=== PATIENT | female | born 1980 | race African-American/Black ===

== ENCOUNTER 2018-09-27 22:30 | Inpatient (IN) | payer MEDICAID ==
[~2018-09-27] VITALS: Ht 172.7 cm; Wt 136.1 kg
[2018-09-27] MEDS ORDERED: ONDANSETRON HCL 4MG/2ML INJ IV STA (23:58)
[2018-09-27] MEDS ORDERED: MORPHINE SULFATE 4 MG/ML CPJ (NOT FOR IM USE) IV STA (23:58)
[2018-09-28 01:00] LABS: BASOPHILS % 0.4 % (0.0-2.0); EOSINOPHILS % 0.2 % (0.0-5.0); HEMATOCRIT. 43.5 % (36.0-48.0); HEMOGLOBIN. 14.4 g/dL (12.0-16.0); LYMPHOCYTES % 23.8 % (20.0-50.0); MEAN CORPUSCULAR HEMOGLOBIN 29.1 pg (28.0-32.0); MEAN CORPUSCULAR VOLUME 88.1 fL (81.0-99.0); MEAN PLATELET VOLUME 8.1 fl (7.4-10.4); MONOCYTES % 7.1 % (2.0-8.0); NEUTROPHILS % 68.5 % (40.0-76.0); PLATELET 222 x1000/uL (130-400); RED BLOOD CELL COUNT 4.94 mill/uL (4.2-5.4); RED CELL DISTRIBUTION WIDTH 14.2 % (11.6-14.6)
[2018-09-28 01:04] LABS: HCG SCREEN NEGATIVE
[2018-09-28 01:06] LABS: INR 1.1; PARTIAL THROMBOPLASTIN TIME 25.7 sec (23.4-31.0); PROTHROMBIN TIME 10.9 sec (9.1-11.1)
[2018-09-28 01:12] LABS: CHLORIDE 110 mEq/L (98-107)
[2018-09-28] MEDS ORDERED: VANCOMYCIN 1 G PREMIX 200 ML IV ONE (01:45)
[2018-09-28] MEDS ORDERED: SODIUM CHLORIDE 0.9% 1000ML BAG (SEPSIS BOLUS) IV ONE (01:45)
[2018-09-28] MEDS ORDERED: PIPERACILLIN/TAZ 3.375G PREMIX 50 ML IV ONE (01:45)
[2018-09-28 05:20] LABS: CLARITY URINE CLOUDY (CLEAR); COLOR URINE YELLOW (YELLOW); KETONES URINE NEGATIVE (NEGATIVE); LEUKOCYTE ESTERASE URINE NEGATIVE (NEGATIVE); NITRITE URINE NEGATIVE (NEGATIVE); OCCULT BLOOD URINE 2+ (NEGATIVE); PROTEIN URINE TRACE (NEGATIVE); UROBILINOGEN URINE 0.2 E.U./dL (0.2-1.0)
[2018-09-28] MEDS ORDERED: MORPHINE SULFATE 4 MG/ML CPJ (NOT FOR IM USE) IV ONE (05:30)
[2018-09-28] MEDS ORDERED: CLONIDINE 0.1MG TABLET PO PRN (09:45)
[2018-09-28] MEDS ORDERED: DEXTROSE 50% WATER 50ML SYRINGE IV PRN (09:45)
[2018-09-28] MEDS ORDERED: ONDANSETRON HCL 4MG/2ML INJ IV PRN (09:45)
[2018-09-28] MEDS ORDERED: POTASSIUM CHLORIDE 20MEQ TABLET SR PO PRN (09:45)
[2018-09-28 10:02] LABS: *AMPHETAMINES SCREEN URINE NEGATIVE (NEGATIVE); *BARBITURATES SCREEN URINE NEGATIVE (NEGATIVE); *BENZODIAZEPINES SCREEN URINE NEGATIVE (NEGATIVE); *COCAINE SCREEN URINE NEGATIVE (NEGATIVE); CANNABINOID URINE SCREEN NEGATIVE (NEGATIVE); METHADONE URINE SCREEN NEGATIVE (NEGATIVE); PHENCYCLIDINE URINE SCREEN NEGATIVE (NEGATIVE)
[2018-09-28 10:06] LABS: OPIATES URINE SCREEN PRESUMTIVE POSITIVE (NEGATIVE)
[2018-09-28 12:00] VITALS: BP 159/65
[2018-09-28] MEDS: INSULIN LISPRO 100 UNITS/ML SUBCUT SCH ×3 (12:17→20:43)
[2018-09-28] MEDS: BLOOD SUGAR DIAGNOSTIC STRIP TEST SCH ×3 (13:00→20:43)
[2018-09-28] MEDS: KETOROLAC 30MG/ML VIAL IV PRN ×2 (13:25→20:42)
[2018-09-28] MEDS: RISPERIDONE 1MG TABLET PO SCH (14:34)
[2018-09-28] MEDS: ACETAMINOPHEN 325MG TABLET PO PRN (14:34)
[2018-09-28 16:00] VITALS: BP 159/90
[2018-09-28] MEDS ORDERED: HALOPERIDOL 2MG TABLET PO PRN (17:15)
[2018-09-28] MEDS: DILTIAZEM HCL 90MG CAPSULE SR 12HR PO SCH ×2 (17:19→20:41)
[2018-09-28] MEDS: RIVAROXABAN 20 MG TABLET PO SCH (17:20)
[2018-09-28 20:00] VITALS: BP 151/108
[2018-09-28] MEDS ORDERED: INFLUENZA VIRUS VACCINE(AFLURIA) 0.5ML SYR IM ONE (20:00)
[2018-09-28] MEDS: SODIUM CHLORIDE 0.9% 1,000 ML IV SCH (20:43)
[2018-09-29] VITALS: BP 163/94
[2018-09-29] MEDS: KETOROLAC 30MG/ML VIAL IV PRN ×2 (02:48→21:50)
[2018-09-29 04:00] VITALS: BP 126/61
[2018-09-29] MEDS: BLOOD SUGAR DIAGNOSTIC STRIP TEST SCH ×4 (06:42→21:51)
[2018-09-29] MEDS: INSULIN LISPRO 100 UNITS/ML SUBCUT SCH ×4 (06:43→21:00)
[2018-09-29 07:16] LABS: BASOPHILS % 0.2 % (0.0-2.0); EOSINOPHILS % 0.6 % (0.0-5.0); HEMATOCRIT. 37.1 % (36.0-48.0); HEMOGLOBIN. 12.4 g/dL (12.0-16.0); LYMPHOCYTES % 24.1 % (20.0-50.0); MEAN CORPUSCULAR HEMOGLOBIN 29.3 pg (28.0-32.0); MEAN CORPUSCULAR VOLUME 87.9 fL (81.0-99.0); MEAN PLATELET VOLUME 8.1 fl (7.4-10.4); NEUTROPHILS % 67.1 % (40.0-76.0); PLATELET 156 x1000/uL (130-400); RED BLOOD CELL COUNT 4.22 mill/uL (4.2-5.4); RED CELL DISTRIBUTION WIDTH 14.5 % (11.6-14.6)
[2018-09-29 08:00] VITALS: BP 158/93
[2018-09-29] MEDS ORDERED: INFLUENZA VIRUS VACCINE(AFLURIA) 0.5ML SYR IM ONE (09:00)
[2018-09-29] MEDS: RISPERIDONE 1MG TABLET PO SCH (09:01)
[2018-09-29] MEDS: DILTIAZEM HCL 90MG CAPSULE SR 12HR PO SCH ×2 (09:01→21:50)
[2018-09-29 12:00] VITALS: BP 136/64
[2018-09-29] MEDS: HYDRALAZINE HCL 10MG TABLET PO SCH ×2 (12:11→21:49)
[2018-09-29 14:13] LABS: CREATINE KINASE 47009 IU/L (26-192)
[2018-09-29 16:00] VITALS: BP 148/71
[2018-09-29] MEDS: RIVAROXABAN 20 MG TABLET PO SCH (17:32)
[2018-09-29] MEDS: ACETAMINOPHEN 325MG TABLET PO PRN (17:36)
[2018-09-29 20:00] VITALS: BP 154/90
[2018-09-29] MEDS: SODIUM CHLORIDE 0.9% 1,000 ML IV SCH (22:37)
[2018-09-30] VITALS: BP 97/74
[2018-09-30 04:00] VITALS: BP 125/61
[2018-09-30] MEDS: BLOOD SUGAR DIAGNOSTIC STRIP TEST SCH ×2 (06:22→12:44)
[2018-09-30] MEDS: INSULIN LISPRO 100 UNITS/ML SUBCUT SCH ×2 (06:22→12:50)
[2018-09-30 08:00] VITALS: BP 143/70
[2018-09-30] MEDS: DILTIAZEM HCL 90MG CAPSULE SR 12HR PO SCH (08:33)
[2018-09-30] MEDS: RISPERIDONE 1MG TABLET PO SCH (08:33)
[2018-09-30] MEDS: HYDRALAZINE HCL 10MG TABLET PO SCH (08:33)
[2018-09-30] MEDS: KETOROLAC 30MG/ML VIAL IV PRN (10:36)
[2018-09-30 12:00] VITALS: BP 127/65
[2018-09-30 13:22] LABS: CHLORIDE 110 mEq/L (98-107)
[2018-09-30 15:43] VITALS: BP 135/78
[2018-09-30 16:00] VITALS: BP 134/70
== END 2018-09-30 17:25 | disposition home or self-care (01) | DRG 384 ==
LOC: ER 22:55 → 5WST 09-28 05:18 → EDBEDREQ 09-28 05:43 → EDBEDREQTM 09-28 05:43 → EDBEDREQSVC 09-28 05:43 → ENRESERV 09-28 10:38
PROVIDERS: ADMIT Emergency Medicine; ATTEND Emergency Medicine
DX: S80.02XA Contusion of left knee, initial encounter (principal); N17.9 Acute kidney failure, unspecified; E66.01 Morbid (severe) obesity due to excess calories; F03.90 Unspecified dementia, unspecified severity, without behavioral disturbance, psychotic disturbance, mood disturbance, and anxiety; F20.9 Schizophrenia, unspecified; F44.4 Conversion disorder with motor symptom or deficit; S80.01XA Contusion of right knee, initial encounter; W18.39XA Other fall on same level, initial encounter; E11.9 Type 2 diabetes mellitus without complications; I10 Essential (primary) hypertension; I25.2 Old myocardial infarction; Z68.42 Body mass index [BMI] 45.0-49.9, adult; Z79.01 Long term (current) use of anticoagulants; Z79.899 Other long term (current) drug therapy; Z86.73 Personal history of transient ischemic attack (TIA), and cerebral infarction without residual deficits; Z91.19 Patient's noncompliance with other medical treatment and regimen; Y93.89 Activity, other specified; Y92.89 Other specified places as the place of occurrence of the external cause
CPT/HCPCS: 36415; 71045; 72131; 73700; 80048; 80305; 82550; 82962; 83036; 83605; 83880; 84145; 84484; 84703; 85379; 85651; 86140; 87804; 90686; 93970; 96365; 96375; 97162; 99285; J1815; J1885; J2270; J2405; J2543; J3370; J7030; J7042; A4315

== ENCOUNTER 2018-09-30 18:16 | Inpatient (IN) | payer MEDICAID ==
[~2018-09-30] VITALS: Ht 165.1 cm; Wt 136.1 kg
[2018-09-30 21:02] LABS: CLARITY URINE TURBID (CLEAR); COLOR URINE YELLOW (YELLOW); KETONES URINE NEGATIVE (NEGATIVE); LEUKOCYTE ESTERASE URINE 2+ (NEGATIVE); NITRITE URINE NEGATIVE (NEGATIVE); OCCULT BLOOD URINE 3+ (NEGATIVE); PROTEIN URINE TRACE (NEGATIVE); SPECIFIC GRAVITY URINE 1.017 (1.005-1.030)
[2018-09-30 21:55] LABS: BASOPHILS % 0.5 % (0.0-2.0); EOSINOPHILS % 0.6 % (0.0-5.0); HEMATOCRIT. 37.5 % (36.0-48.0); HEMOGLOBIN. 12.7 g/dL (12.0-16.0); LYMPHOCYTES % 16.4 % (20.0-50.0); MEAN CORPUSCULAR HEMOGLOBIN 29.8 pg (28.0-32.0); MEAN PLATELET VOLUME 8.2 fl (7.4-10.4); MONOCYTES % 6.8 % (2.0-8.0); NEUTROPHILS % 75.7 % (40.0-76.0); PLATELET 172 x1000/uL (130-400); RED BLOOD CELL COUNT 4.26 mill/uL (4.2-5.4); RED CELL DISTRIBUTION WIDTH 14.5 % (11.6-14.6)
[2018-09-30 22:00] LABS: CHLORIDE 109 mEq/L (98-107); INR 1.2; PROTHROMBIN TIME 11.7 sec (9.1-11.1)
[2018-09-30] MEDS ORDERED: CEFTRIAXONE 2 G PREMIX 50 ML IV ONE (23:30)
[2018-10-01] MEDS ORDERED: ACETAMINOPHEN 500MG TABLET ONE (00:42)
[2018-10-01 08:00] VITALS: BP 153/85
[2018-10-01 09:00] VITALS: BP 153/85
[2018-10-01] MEDS: ACETAMINOPHEN 650MG/20.3ML UDC PO PRN ×4 (09:15→23:09)
[2018-10-01 12:00] VITALS: BP 149/78
[2018-10-01 16:00] VITALS: BP 154/79
[2018-10-01] MEDS ORDERED: IPRATROPIUM/ALBUTEROL 0.5-3(2.5)MG/3ML NEB INH PRN (18:00)
[2018-10-01] MEDS ORDERED: ONDANSETRON HCL 4MG/2ML INJ IV PRN (18:00)
[2018-10-01 20:00] VITALS: BP 137/95
[2018-10-01] MEDS: AMLODIPINE 5MG TABLET PO SCH (20:33)
[2018-10-02] VITALS: BP 153/72
[2018-10-02 01:27] LABS: PHOSPHORUS 4.1 mg/dL (2.5-4.9)
[2018-10-02 01:31] LABS: CREATINE KINASE MB FRACTION 15.8 ng/mL (0.5-3.6)
[2018-10-02 02:34] LABS: HCG SCREEN NEGATIVE
[2018-10-02 04:00] VITALS: BP 138/78
[2018-10-02] MEDS: ACETAMINOPHEN 650MG/20.3ML UDC PO PRN ×2 (05:36→12:22)
[2018-10-02 06:21] LABS: BASOPHILS % 0.3 % (0.0-2.0); EOSINOPHILS % 1.2 % (0.0-5.0); HEMATOCRIT. 36.2 % (36.0-48.0); HEMOGLOBIN. 12.1 g/dL (12.0-16.0); LYMPHOCYTES % 14.9 % (20.0-50.0); MEAN PLATELET VOLUME 8.4 fl (7.4-10.4); NEUTROPHILS % 74.6 % (40.0-76.0); PLATELET 160 x1000/uL (130-400); RED BLOOD CELL COUNT 4.16 mill/uL (4.2-5.4)
[2018-10-02 06:44] LABS: CHLORIDE 108 mEq/L (98-107)
[2018-10-02 08:00] VITALS: BP 141/79
[2018-10-02] MEDS: AMLODIPINE 5MG TABLET PO SCH ×2 (08:56→21:42)
[2018-10-02 10:29] VITALS: BP 136/88
[2018-10-02 16:00] VITALS: BP 155/96
[2018-10-02] MEDS: HYDROCODONE/ACETAMINOPHEN 5/325MG TABLET PO PRN ×2 (17:42→23:59)
[2018-10-02 20:00] VITALS: BP 131/72
[2018-10-02] MEDS ORDERED: DEXTROSE 50% WATER 50ML SYRINGE IV PRN (22:45)
[2018-10-03] VITALS: BP 137/69
[2018-10-03 04:00] VITALS: BP 138/73
[2018-10-03] MEDS: HYDROCODONE/ACETAMINOPHEN 5/325MG TABLET PO PRN ×3 (05:18→19:58)
[2018-10-03] MEDS: BLOOD SUGAR DIAGNOSTIC STRIP TEST SCH ×4 (05:55→20:03)
[2018-10-03 07:19] LABS: BASOPHILS % 0.3 % (0.0-2.0); EOSINOPHILS % 2.1 % (0.0-5.0); HEMATOCRIT. 36.1 % (36.0-48.0); HEMOGLOBIN. 12.2 g/dL (12.0-16.0); MEAN CORPUSCULAR HEMOGLOBIN 29.3 pg (28.0-32.0); MEAN PLATELET VOLUME 8.8 fl (7.4-10.4); MONOCYTES % 13.2 % (2.0-8.0); NEUTROPHILS % 70.4 % (40.0-76.0); PLATELET 175 x1000/uL (130-400); RED BLOOD CELL COUNT 4.15 mill/uL (4.2-5.4); RED CELL DISTRIBUTION WIDTH 14.2 % (11.6-14.6)
[2018-10-03 07:47] LABS: CHLORIDE 106 mEq/L (98-107)
[2018-10-03] MEDS: INSULIN LISPRO 100 UNITS/ML SUBCUT SCH ×4 (08:06→20:03)
[2018-10-03] MEDS: AMLODIPINE 5MG TABLET PO SCH ×2 (08:10→19:56)
[2018-10-03 08:19] VITALS: BP 134/86
[2018-10-03 12:21] VITALS: BP 127/58
[2018-10-03] MEDS ORDERED: SODIUM CHLORIDE 0.45% 500 ML IV ONE (12:30)
[2018-10-03 14:04] LABS: CREATINE KINASE 7649 IU/L (26-192)
[2018-10-03] MEDS: CEFTRIAXONE 1 G PREMIX 50 ML IV SCH (14:09)
[2018-10-03 15:24] VITALS: BP 133/76
[2018-10-03 20:00] VITALS: BP 127/70
[2018-10-03] MEDS: ACETAMINOPHEN 650MG/20.3ML UDC PO PRN (23:48)
[2018-10-04] VITALS: BP 140/82
[2018-10-04 04:00] VITALS: BP 120/82
[2018-10-04] MEDS: BLOOD SUGAR DIAGNOSTIC STRIP TEST SCH ×4 (06:34→21:00)
[2018-10-04 07:06] LABS: HEMATOCRIT. 36.2 % (36.0-48.0); HEMOGLOBIN. 12.1 g/dL (12.0-16.0); MEAN CORPUSCULAR HEMOGLOBIN 29.1 pg (28.0-32.0); MEAN CORPUSCULAR VOLUME 86.7 fL (81.0-99.0); MEAN PLATELET VOLUME 8.8 fl (7.4-10.4); PLATELET 181 x1000/uL (130-400); RED BLOOD CELL COUNT 4.18 mill/uL (4.2-5.4); RED CELL DISTRIBUTION WIDTH 14.1 % (11.6-14.6)
[2018-10-04 07:13] LABS: CHLORIDE 104 mEq/L (98-107)
[2018-10-04 07:48] LABS: CREATINE KINASE 4658 IU/L (26-192)
[2018-10-04] MEDS: INSULIN LISPRO 100 UNITS/ML SUBCUT SCH ×4 (07:50→21:14)
[2018-10-04 08:00] VITALS: BP 134/82
[2018-10-04] MEDS: CEFTRIAXONE 1 G PREMIX 50 ML IV SCH (08:35)
[2018-10-04] MEDS: AMLODIPINE 5MG TABLET PO SCH ×2 (08:36→21:13)
[2018-10-04] MEDS: HYDROCODONE/ACETAMINOPHEN 5/325MG TABLET PO PRN ×3 (08:37→18:40)
[2018-10-04 12:00] VITALS: BP 138/80
[2018-10-04 12:13] LABS: PLATELET ESTIMATE NORMAL
[2018-10-04 16:00] VITALS: BP 130/80
[2018-10-04 20:00] VITALS: BP 113/59
[2018-10-04 20:07] LABS: *AMPHETAMINES SCREEN URINE NEGATIVE (NEGATIVE)
[2018-10-04 20:08] LABS: *BARBITURATES SCREEN URINE NEGATIVE (NEGATIVE); *BENZODIAZEPINES SCREEN URINE NEGATIVE (NEGATIVE); *COCAINE SCREEN URINE NEGATIVE (NEGATIVE); METHADONE URINE SCREEN NEGATIVE (NEGATIVE); PHENCYCLIDINE URINE SCREEN NEGATIVE (NEGATIVE)
[2018-10-04 20:09] LABS: CANNABINOID URINE SCREEN NEGATIVE (NEGATIVE)
[2018-10-04 20:13] LABS: OPIATES URINE SCREEN PRESUMTIVE POSITIVE (NEGATIVE)
[2018-10-04] MEDS: MORPHINE SULFATE 4 MG/ML CPJ (NOT FOR IM USE) IV PRN (20:59)
[2018-10-05] VITALS: BP 116/70
[2018-10-05 04:00] VITALS: BP 113/57
[2018-10-05] MEDS: MORPHINE SULFATE 4 MG/ML CPJ (NOT FOR IM USE) IV PRN ×2 (06:53→11:55)
[2018-10-05] MEDS: BLOOD SUGAR DIAGNOSTIC STRIP TEST SCH ×2 (07:20→11:45)
[2018-10-05] MEDS: CEFTRIAXONE 1 G PREMIX 50 ML IV SCH (09:13)
[2018-10-05] MEDS: AMLODIPINE 5MG TABLET PO SCH (09:13)
[2018-10-05] MEDS: INSULIN LISPRO 100 UNITS/ML SUBCUT SCH ×2 (09:14→12:02)
[2018-10-05 09:51] LABS: HEMATOCRIT. 37.1 % (36.0-48.0); HEMOGLOBIN. 12.4 g/dL (12.0-16.0); MEAN CORPUSCULAR HEMOGLOBIN 28.7 pg (28.0-32.0); MEAN PLATELET VOLUME 8.9 fl (7.4-10.4); PLATELET 203 x1000/uL (130-400); RED BLOOD CELL COUNT 4.32 mill/uL (4.2-5.4); RED CELL DISTRIBUTION WIDTH 13.9 % (11.6-14.6)
[2018-10-05 09:57] LABS: CHLORIDE 103 mEq/L (98-107)
[2018-10-05 12:00] VITALS: BP 136/79
[2018-10-05] MEDS ORDERED: AMLO5TAB88 PO (12:31)
[2018-10-05] MEDS ORDERED: ACET650S25 PO (12:31)
[2018-10-05 16:00] VITALS: BP 144/86
[2018-10-05 16:39] VITALS: BP 144/86
[2018-10-05 16:50] LABS: ATYPICAL LYMPHOCYTES 1; PLATELET ESTIMATE NORMAL
== END 2018-10-05 19:25 | DRG 720 ==
LOC: ER 18:16 → 6EST 23:19 → EDBEDREQ 23:23 → EDBEDREQTM 23:23 → ENRESERV 10-01 04:24 → 6EST 10-01 08:31 → 6WST 10-02 10:27
PROVIDERS: ADMIT Internal Medicine; ATTEND Internal Medicine
DX: A41.9 Sepsis, unspecified organism (principal); E43 Unspecified severe protein-calorie malnutrition; N17.9 Acute kidney failure, unspecified; M62.82 Rhabdomyolysis; E66.01 Morbid (severe) obesity due to excess calories; F20.9 Schizophrenia, unspecified; G83.9 Paralytic syndrome, unspecified; R16.0 Hepatomegaly, not elsewhere classified; K76.0 Fatty (change of) liver, not elsewhere classified; I10 Essential (primary) hypertension; M79.604 Pain in right leg; M25.562 Pain in left knee; F41.9 Anxiety disorder, unspecified; N39.0 Urinary tract infection, site not specified; E11.9 Type 2 diabetes mellitus without complications; W19.XXXA Unspecified fall, initial encounter; Y93.89 Activity, other specified; Y92.89 Other specified places as the place of occurrence of the external cause; Y99.8 Other external cause status; Z86.73 Personal history of transient ischemic attack (TIA), and cerebral infarction without residual deficits; Z68.42 Body mass index [BMI] 45.0-49.9, adult; Z91.14 Patient's other noncompliance with medication regimen
CPT/HCPCS: 36415; 73562; 73610; 76700; 80048; 80305; 82550; 82553; 82962; 82977; 83735; 84100; 84484; 84703; 85379; 93306; 96365; 97110; 97162; 97530; 99285; C1893; J0696; J1815; J2270; J7050; J7620

== ENCOUNTER 2018-10-19 17:18 | Inpatient (IN) | payer MEDICAID ==
[~2018-10-19] VITALS: Ht 165.1 cm; Wt 198.2 kg
[~2018-10-19 17:18] MED LIST: ACET650S25 PO; AMLO5TAB88 PO
[2018-10-19] MEDS ORDERED: SODIUM CHLORIDE 0.9% 500 ML IV ONE (19:08)
[2018-10-19] MEDS ORDERED: ONDANSETRON HCL 4MG/2ML INJ IV STA (19:08)
[2018-10-19] MEDS ORDERED: MORPHINE SULFATE 4 MG/ML CPJ (NOT FOR IM USE) IV STA (19:08)
[2018-10-19] MEDS ORDERED: ENOXAPARIN 100MG/ML SYR SUBCUT ONE (19:15)
[2018-10-19 19:57] LABS: BASOPHILS % 0.3 % (0.0-2.0); EOSINOPHILS % 0.7 % (0.0-5.0); HEMATOCRIT. 33.6 % (36.0-48.0); HEMOGLOBIN. 11.1 g/dL (12.0-16.0); LYMPHOCYTES % 27.7 % (20.0-50.0); MEAN PLATELET VOLUME 7.9 fl (7.4-10.4); MONOCYTES % 11.9 % (2.0-8.0); NEUTROPHILS % 59.4 % (40.0-76.0); PLATELET 234 x1000/uL (130-400); RED BLOOD CELL COUNT 3.96 mill/uL (4.2-5.4); RED CELL DISTRIBUTION WIDTH 13.9 % (11.6-14.6)
[2018-10-19 19:58] LABS: CHLORIDE 105 mEq/L (98-107)
[2018-10-19 20:11] LABS: HCG SCREEN NEGATIVE
[2018-10-19 20:15] LABS: CREATINE KINASE 431 IU/L (26-192)
[2018-10-19 20:16] LABS: D-DIMER 9.51 mg/L FEU (<0.50); INR 1.2; PARTIAL THROMBOPLASTIN TIME 29.5 sec (23.4-31.0)
[2018-10-20] MEDS ORDERED: KETOROLAC 30MG/ML VIAL IV ONE (01:30)
[2018-10-20] MEDS ORDERED: IOHEXOL-350 100 ML BOTTLE ONE (07:10)
[2018-10-20 09:00] VITALS: BP 119/56
[2018-10-20 10:00] VITALS: BP 130/69
[2018-10-20] MEDS ORDERED: ONDANSETRON HCL 4MG/2ML INJ IV PRN (10:30)
[2018-10-20] MEDS: ACETAMINOPHEN 325MG TABLET PO PRN (11:10)
[2018-10-20 12:00] VITALS: BP 117/66
[2018-10-20] MEDS ORDERED: HYDROCODONE/ACETAMINOPHEN 5/325MG TABLET PO PRN (15:00)
[2018-10-20 16:00] VITALS: BP 112/71
[2018-10-20] MEDS: HYDROMORPHONE HCL/PF 2MG/ML CPJ IV PRN ×2 (16:19→20:48)
[2018-10-20] MEDS ORDERED: CLONIDINE 0.1MG TABLET PO PRN (17:15)
[2018-10-20 20:00] VITALS: BP 131/53
[2018-10-20] MEDS: ENOXAPARIN 120MG/0.8ML SYR SUBCUT SCH (20:49)
[2018-10-21 00:28] VITALS: BP 124/76
[2018-10-21] MEDS: HYDROMORPHONE HCL/PF 2MG/ML CPJ IV PRN ×5 (02:29→20:40)
[2018-10-21 04:00] VITALS: BP 132/74
[2018-10-21 07:00] LABS: BASOPHILS % 0.3 % (0.0-2.0); EOSINOPHILS % 1.8 % (0.0-5.0); HEMATOCRIT. 32.6 % (36.0-48.0); HEMOGLOBIN. 10.8 g/dL (12.0-16.0); LYMPHOCYTES % 29.1 % (20.0-50.0); MEAN CORPUSCULAR HEMOGLOBIN 28.2 pg (28.0-32.0); MEAN CORPUSCULAR VOLUME 84.9 fL (81.0-99.0); MEAN PLATELET VOLUME 8.1 fl (7.4-10.4); MONOCYTES % 9.8 % (2.0-8.0); PLATELET 215 x1000/uL (130-400); RED BLOOD CELL COUNT 3.84 mill/uL (4.2-5.4)
[2018-10-21 07:06] LABS: CHLORIDE 104 mEq/L (98-107)
[2018-10-21 08:53] VITALS: BP 108/59
[2018-10-21] MEDS: ENOXAPARIN 120MG/0.8ML SYR SUBCUT SCH ×2 (08:54→20:40)
[2018-10-21 12:24] VITALS: BP 104/57
[2018-10-21] MEDS: ACETAMINOPHEN 325MG TABLET PO PRN (12:59)
[2018-10-21 17:09] VITALS: BP 105/48
[2018-10-21] MEDS: NYSTATIN POWDER 15GM TOP SCH (18:04)
[2018-10-21 20:00] VITALS: BP 112/55
[2018-10-22] VITALS: BP 121/64
[2018-10-22] MEDS: HYDROMORPHONE HCL/PF 2MG/ML CPJ IV PRN ×4 (01:36→20:34)
[2018-10-22 04:00] VITALS: BP 121/75
[2018-10-22 08:00] VITALS: BP 126/67
[2018-10-22 08:16] LABS: BASOPHILS % 0.3 % (0.0-2.0); EOSINOPHILS % 1.7 % (0.0-5.0); HEMATOCRIT. 31.8 % (36.0-48.0); HEMOGLOBIN. 10.5 g/dL (12.0-16.0); LYMPHOCYTES % 28.9 % (20.0-50.0); MEAN CORPUSCULAR HEMOGLOBIN 27.9 pg (28.0-32.0); MEAN CORPUSCULAR VOLUME 84.4 fL (81.0-99.0); MEAN PLATELET VOLUME 8.2 fl (7.4-10.4); MONOCYTES % 12.6 % (2.0-8.0); NEUTROPHILS % 56.5 % (40.0-76.0); PLATELET 221 x1000/uL (130-400); RED BLOOD CELL COUNT 3.76 mill/uL (4.2-5.4)
[2018-10-22] MEDS: ENOXAPARIN 120MG/0.8ML SYR SUBCUT SCH ×2 (08:17→20:34)
[2018-10-22] MEDS: NYSTATIN POWDER 15GM TOP SCH ×3 (08:18→18:47)
[2018-10-22 09:50] LABS: CHLORIDE 103 mEq/L (98-107)
[2018-10-22] MEDS: ACETAMINOPHEN 325MG TABLET PO PRN ×2 (11:43→17:55)
[2018-10-22 12:00] VITALS: BP 124/65
[2018-10-22 16:00] VITALS: BP 112/63
[2018-10-22 19:52] VITALS: BP 113/49
[2018-10-23] VITALS: BP 128/76
[2018-10-23] MEDS: HYDROMORPHONE HCL/PF 2MG/ML CPJ IV PRN ×3 (02:09→12:36)
[2018-10-23 04:00] VITALS: BP 154/70
[2018-10-23 08:00] VITALS: BP 115/52
[2018-10-23 08:12] LABS: BASOPHILS % 0.3 % (0.0-2.0); EOSINOPHILS % 1.7 % (0.0-5.0); HEMATOCRIT. 30.7 % (36.0-48.0); HEMOGLOBIN. 10.1 g/dL (12.0-16.0); LYMPHOCYTES % 21.4 % (20.0-50.0); MEAN CORPUSCULAR HEMOGLOBIN 27.9 pg (28.0-32.0); MEAN CORPUSCULAR VOLUME 84.8 fL (81.0-99.0); MEAN PLATELET VOLUME 8.1 fl (7.4-10.4); MONOCYTES % 13.1 % (2.0-8.0); NEUTROPHILS % 63.5 % (40.0-76.0); PLATELET 212 x1000/uL (130-400); RED BLOOD CELL COUNT 3.62 mill/uL (4.2-5.4); RED CELL DISTRIBUTION WIDTH 14.2 % (11.6-14.6)
[2018-10-23] MEDS: NYSTATIN POWDER 15GM TOP SCH ×2 (08:55→13:00)
[2018-10-23] MEDS: ENOXAPARIN 120MG/0.8ML SYR SUBCUT SCH (08:55)
[2018-10-23 08:58] LABS: CHLORIDE 102 mEq/L (98-107)
[2018-10-23 12:00] VITALS: BP 130/71
[2018-10-23 13:32] VITALS: BP 130/71
[2018-10-23] MEDS: ACETAMINOPHEN 325MG TABLET PO PRN (15:41)
[2018-10-23 16:00] VITALS: BP 114/66
== END 2018-10-23 17:25 | DRG 197 ==
LOC: ER 17:18 → 6WST 23:40 → EDBEDREQ 23:43 → EDBEDREQTM 23:43 → ENRESERV 10-20 07:15
PROVIDERS: ADMIT Internal Medicine; ATTEND Internal Medicine
DX: I82.432 Acute embolism and thrombosis of left popliteal vein (principal); E43 Unspecified severe protein-calorie malnutrition; L89.153 Pressure ulcer of sacral region, stage 3; L89.323 Pressure ulcer of left buttock, stage 3; L89.313 Pressure ulcer of right buttock, stage 3; I82.412 Acute embolism and thrombosis of left femoral vein; E66.01 Morbid (severe) obesity due to excess calories; F20.9 Schizophrenia, unspecified; I10 Essential (primary) hypertension; D64.9 Anemia, unspecified; Z68.45 Body mass index [BMI] 70 or greater, adult; Z79.1 Long term (current) use of non-steroidal anti-inflammatories (NSAID); Z86.73 Personal history of transient ischemic attack (TIA), and cerebral infarction without residual deficits; Z79.899 Other long term (current) drug therapy; Z79.01 Long term (current) use of anticoagulants; Z98.891 History of uterine scar from previous surgery
CPT/HCPCS: 36415; 71045; 71275; 73502; 78582; 80048; 82550; 83880; 84134; 84484; 84703; 85379; 93005; 93970; 97163; 97530; 99285; A9558; J1170; J1650; J1885; J2405; J7040; Q9967

== ENCOUNTER 2018-11-08 11:06 | Inpatient (IN) | payer MEDICAID ==
[~2018-11-08] VITALS: Ht 165.1 cm; Wt 125.3 kg
[2018-11-08 13:02] LABS: BASOPHILS % 0.4 % (0.0-2.0); HEMATOCRIT. 30.1 % (36.0-48.0); HEMOGLOBIN. 9.8 g/dL (12.0-16.0); LYMPHOCYTES % 11.5 % (20.0-50.0); MEAN CORPUSCULAR HEMOGLOBIN 26.8 pg (28.0-32.0); MONOCYTES % 9.7 % (2.0-8.0); NEUTROPHILS % 78.4 % (40.0-76.0); PLATELET 202 x1000/uL (130-400); RED BLOOD CELL COUNT 3.66 mill/uL (4.2-5.4); RED CELL DISTRIBUTION WIDTH 15.1 % (11.6-14.6)
[2018-11-08 13:10] LABS: CHLORIDE 102 mEq/L (98-107)
[2018-11-08 13:14] LABS: D-DIMER 3.98 mg/L FEU (<0.50); INR 1.3; PARTIAL THROMBOPLASTIN TIME 34.6 sec (23.4-31.0); PROTHROMBIN TIME 13.4 sec (9.1-11.1)
[2018-11-08] MEDS ORDERED: KETOROLAC 30MG/ML VIAL IV ONE (13:15)
[2018-11-08 15:56] LABS: CLARITY URINE CLEAR (CLEAR); COLOR URINE DARK YELLOW (YELLOW); KETONES URINE TRACE (NEGATIVE); LEUKOCYTE ESTERASE URINE TRACE (NEGATIVE); NITRITE URINE NEGATIVE (NEGATIVE); OCCULT BLOOD URINE NEGATIVE (NEGATIVE); PH URINE 5.5 (4.5-8.0); PROTEIN URINE 2+ (NEGATIVE); SPECIFIC GRAVITY URINE 1.034 (1.005-1.030)
[2018-11-08] MEDS ORDERED: IOHEXOL-350 100 ML BOTTLE ONE (17:57)
[2018-11-08] MEDS ORDERED: ONDANSETRON HCL 4MG/2ML INJ IV ONE (18:30)
[2018-11-08] MEDS ORDERED: HEPARIN 25,000 UNITS PREMIX 500 ML IV SCH ×2 (18:30→21:30)
[2018-11-08] MEDS ORDERED: HEPARIN 5000 UNITS/ML VIAL IV ONE (18:30)
[2018-11-08] MEDS ORDERED: FENTANYL CITRATE/PF 50MCG/ML 2ML VIAL IV ONE (18:30)
[2018-11-08] MEDS ORDERED: FENTANYL CITRATE/PF 50MCG/ML 2ML VIAL IV NR (18:45)
[2018-11-08] MEDS ORDERED: IPRATROPIUM/ALBUTEROL 0.5-3(2.5)MG/3ML NEB INH PRN (21:30)
[2018-11-08] MEDS ORDERED: ACETAMINOPHEN 325MG TABLET PO PRN (21:30)
[2018-11-08] MEDS ORDERED: MAGNESIUM/ALUMINUM HYDROXIDE/SIMETHICONE 30ML UDC PO PRN (21:30)
[2018-11-08] MEDS ORDERED: CLONIDINE 0.1MG TABLET PO PRN (21:30)
[2018-11-08] MEDS ORDERED: GUAIFENESIN 200MG/10ML SUGAR FREE UDC PO PRN (21:30)
[2018-11-08] MEDS ORDERED: ACETAMINOPHEN 650MG SUPP PR PRN (21:30)
[2018-11-08] MEDS ORDERED: ACETAMINOPHEN 650MG/20.3ML UDC GT PRN (21:30)
[2018-11-08] MEDS ORDERED: ONDANSETRON HCL 4MG/2ML INJ IV PRN (21:30)
[2018-11-08] MEDS ORDERED: DIPHENHYDRAMINE 50MG/ML VIAL IV PRN (21:30)
[2018-11-08] MEDS ORDERED: HYDROCODONE/ACETAMINOPHEN 5/325MG TABLET PO PRN (21:30)
[2018-11-08] MEDS ORDERED: NA PHOS,M-B/NA PHOS,DI-BA ENEMA 118ML PR PRN (21:30)
[2018-11-08] MEDS ORDERED: DOCUSATE SODIUM 100MG CAPSULE PO PRN (21:30)
[2018-11-09] VITALS (15 sets, daily range): BP systolic 101–161; BP diastolic 52–98
[2018-11-09] MEDS ORDERED: HEPARIN BOLUS PRN aPTT 37-44 IV ×2 (02:30→02:44)
[2018-11-09] MEDS ORDERED: HEPARIN BOLUS PRN aPTT <36 IV ×2 (02:30→02:44)
[2018-11-09] MEDS ORDERED: HEPARIN 25,000 UNITS PREMIX 500 ML IV SCH (02:30)
[2018-11-09] MEDS ORDERED: LOV40 SQ (02:37)
[2018-11-09] MEDS ORDERED: DOCU-138 PO (02:37)
[2018-11-09] MEDS ORDERED: CLON0.1T PO (02:37)
[2018-11-09] MEDS ORDERED: HYDR-4001 PO (02:37)
[2018-11-09] MEDS ORDERED: ACET325C5 PO (02:37)
[2018-11-09] MEDS ORDERED: HYDR2TAB4 PO (02:37)
[2018-11-09 02:46] LABS: BASOPHILS % 0.7 % (0.0-2.0); HEMATOCRIT. 28.6 % (36.0-48.0); HEMOGLOBIN. 9.3 g/dL (12.0-16.0); LYMPHOCYTES % 14.6 % (20.0-50.0); MEAN CORPUSCULAR HEMOGLOBIN 26.5 pg (28.0-32.0); MEAN CORPUSCULAR VOLUME 81.8 fL (81.0-99.0); MEAN PLATELET VOLUME 7.6 fl (7.4-10.4); MONOCYTES % 10.5 % (2.0-8.0); NEUTROPHILS % 74.2 % (40.0-76.0); PLATELET 164 x1000/uL (130-400); RED CELL DISTRIBUTION WIDTH 15.3 % (11.6-14.6)
[2018-11-09 02:52] LABS: CHLORIDE 105 mEq/L (98-107)
[2018-11-09 02:59] LABS: LDL CHOLESTEROL 29 mg/dL (5-100)
[2018-11-09 03:01] LABS: HDL CHOLESTEROL 21 mg/dL (40-59)
[2018-11-09 03:49] LABS: CLARITY URINE CLEAR (CLEAR); COLOR URINE DARK YELLOW (YELLOW); KETONES URINE 1+ (NEGATIVE); LEUKOCYTE ESTERASE URINE TRACE (NEGATIVE); NITRITE URINE NEGATIVE (NEGATIVE); OCCULT BLOOD URINE 3+ (NEGATIVE); PH URINE 5.5 (4.5-8.0); PROTEIN URINE 2+ (NEGATIVE); SPECIFIC GRAVITY URINE 1.071 (1.005-1.030)
[2018-11-09 04:00] LABS: *AMPHETAMINES SCREEN URINE NEGATIVE (NEGATIVE); *BARBITURATES SCREEN URINE NEGATIVE (NEGATIVE); *BENZODIAZEPINES SCREEN URINE NEGATIVE (NEGATIVE); *COCAINE SCREEN URINE NEGATIVE (NEGATIVE)
[2018-11-09 04:01] LABS: METHADONE URINE SCREEN NEGATIVE (NEGATIVE); PHENCYCLIDINE URINE SCREEN NEGATIVE (NEGATIVE)
[2018-11-09 04:10] LABS: CANNABINOID URINE SCREEN PRESUMTIVE POSITIVE (NEGATIVE); OPIATES URINE SCREEN PRESUMTIVE POSITIVE (NEGATIVE)
[2018-11-09] MEDS: SODIUM CHLORIDE 0.9% INJ 3ML FLUSH IVF SCH ×3 (06:00→20:39)
[2018-11-09] MEDS ORDERED: IODIXANOL 320MG/ML 100 ML BOTTLE IV ONE (09:59)
[2018-11-09] MEDS ORDERED: LIDOCAINE HCL 1% 20ML VIAL (Pyxis) INJ ONE (09:59)
[2018-11-09 10:16] LABS: UCG SCREEN NEGATIVE
[2018-11-09] MEDS ORDERED: MIDAZOLAM HCL 2 MG/2 ML VIAL ONE ×2 (10:22→12:30)
[2018-11-09] MEDS ORDERED: FENTANYL CITRATE/PF 50MCG/ML 2ML VIAL ONE ×2 (10:22→11:36)
[2018-11-09] MEDS: ENOXAPARIN 120MG/0.8ML SYR SUBCUT SCH ×2 (10:30→20:38)
[2018-11-09] MEDS ORDERED: IOHEXOL-300 100 ML BOTTLE ONE (11:13)
[2018-11-09] MEDS ORDERED: ATROPINE SULFATE 1MG/10ML SYR IV PRN (13:30)
[2018-11-09] MEDS ORDERED: DEXTROSE 50% WATER 50ML SYRINGE IV PRN (14:00)
[2018-11-09] MEDS ORDERED: PHENYLEPHRINE 100MCG/ML 10ML VIAL (CATH LAB) IV ONE (14:19)
[2018-11-09] MEDS ORDERED: HEPARIN SODIUM 1,000 UNIT/1ML VIAL IV ONE (14:19)
[2018-11-09] MEDS: MORPHINE SULFATE 10 MG/ML CPJ IV PRN (14:25)
[2018-11-09] MEDS: BLOOD SUGAR DIAGNOSTIC STRIP TEST SCH ×2 (16:37→20:37)
[2018-11-09] MEDS: INSULIN LISPRO 100 UNITS/ML SUBCUT SCH ×2 (17:20→21:00)
[2018-11-09] MEDS: ACETAMINOPHEN 325MG TABLET PO PRN (21:28)
[2018-11-10] VITALS (12 sets, daily range): BP systolic 99–141; BP diastolic 58–78
[2018-11-10] MEDS: MORPHINE SULFATE 10 MG/ML CPJ IV PRN ×3 (00:53→13:26)
[2018-11-10] MEDS: BLOOD SUGAR DIAGNOSTIC STRIP TEST SCH ×4 (06:02→20:35)
[2018-11-10] MEDS: SODIUM CHLORIDE 0.9% INJ 3ML FLUSH IVF SCH ×3 (06:24→20:35)
[2018-11-10] MEDS: INSULIN LISPRO 100 UNITS/ML SUBCUT SCH ×4 (06:25→20:35)
[2018-11-10 06:36] LABS: BASOPHILS % 0.2 % (0.0-2.0); EOSINOPHILS % 0.4 % (0.0-5.0); HEMATOCRIT. 26.4 % (36.0-48.0); HEMOGLOBIN. 8.7 g/dL (12.0-16.0); LYMPHOCYTES % 13.7 % (20.0-50.0); MEAN CORPUSCULAR VOLUME 81.8 fL (81.0-99.0); MEAN PLATELET VOLUME 8.4 fl (7.4-10.4); MONOCYTES % 11.1 % (2.0-8.0); NEUTROPHILS % 74.6 % (40.0-76.0); PLATELET 138 x1000/uL (130-400); RED BLOOD CELL COUNT 3.23 mill/uL (4.2-5.4); RED CELL DISTRIBUTION WIDTH 15.2 % (11.6-14.6)
[2018-11-10 06:56] LABS: CHLORIDE 107 mEq/L (98-107)
[2018-11-10] MEDS: ENOXAPARIN 120MG/0.8ML SYR SUBCUT SCH ×2 (09:33→20:01)
[2018-11-10] MEDS: QUETIAPINE FUMARATE 25MG TABLET PO SCH ×2 (13:24→20:01)
[2018-11-10] MEDS ORDERED: SODIUM CHLORIDE 0.9% 500 ML IV ONE (22:30)
[2018-11-11] VITALS (12 sets, daily range): BP systolic 106–140; BP diastolic 54–82
[2018-11-11] MEDS: SODIUM CHLORIDE 0.9% INJ 3ML FLUSH IVF SCH ×3 (06:00→22:00)
[2018-11-11] MEDS: BLOOD SUGAR DIAGNOSTIC STRIP TEST SCH ×4 (06:25→21:02)
[2018-11-11] MEDS: INSULIN LISPRO 100 UNITS/ML SUBCUT SCH ×4 (07:20→21:00)
[2018-11-11] MEDS: ENOXAPARIN 120MG/0.8ML SYR SUBCUT SCH ×2 (08:15→21:08)
[2018-11-11] MEDS: QUETIAPINE FUMARATE 25MG TABLET PO SCH ×2 (08:15→21:08)
[2018-11-11] MEDS: HYDROMORPHONE HCL/PF 2MG/ML CPJ IV PRN ×2 (08:17→15:10)
[2018-11-11] MEDS ORDERED: IOHEXOL-350 100 ML BOTTLE ONE (14:38)
[2018-11-11] MEDS ORDERED: ACETAMINOPHEN 325MG SUPP PR PRN (18:00)
[2018-11-11] MEDS ORDERED: ACETAMINOPHEN 650MG SUPP PR PRN (18:30)
[2018-11-12] VITALS (13 sets, daily range): BP systolic 99–142; BP diastolic 45–83
[2018-11-12] MEDS: HYDROMORPHONE HCL/PF 2MG/ML CPJ IV PRN ×3 (05:04→18:27)
[2018-11-12] MEDS: ACETAMINOPHEN 325MG TABLET PO PRN (05:19)
[2018-11-12] MEDS: SODIUM CHLORIDE 0.9% INJ 3ML FLUSH IVF SCH ×3 (05:39→21:30)
[2018-11-12] MEDS: BLOOD SUGAR DIAGNOSTIC STRIP TEST SCH ×5 (06:00→21:42)
[2018-11-12] MEDS: INSULIN LISPRO 100 UNITS/ML SUBCUT SCH ×5 (07:20→21:26)
[2018-11-12] MEDS: ENOXAPARIN 120MG/0.8ML SYR SUBCUT SCH ×2 (09:00→21:28)
[2018-11-12] MEDS: QUETIAPINE FUMARATE 25MG TABLET PO SCH ×2 (09:00→21:26)
[2018-11-12] MEDS ORDERED: IOHEXOL-300 100 ML BOTTLE ONE (13:01)
[2018-11-12] MEDS ORDERED: LIDOCAINE HCL 1% 20ML VIAL (Pyxis) INJ ONE (13:01)
[2018-11-12] MEDS: HYDROCODONE/ACETAMINOPHEN 5/325MG TABLET PO PRN ×2 (16:05→22:50)
[2018-11-12 16:19] LABS: INR 1.4; PARTIAL THROMBOPLASTIN TIME 36.2 sec (23.4-31.0); PROTHROMBIN TIME 13.8 sec (9.1-11.1)
[2018-11-13] VITALS (12 sets, daily range): BP systolic 92–131; BP diastolic 37–63
[2018-11-13] MEDS: SODIUM CHLORIDE 0.9% INJ 3ML FLUSH IVF SCH ×3 (06:00→21:25)
[2018-11-13] MEDS: BLOOD SUGAR DIAGNOSTIC STRIP TEST SCH ×4 (06:50→20:31)
[2018-11-13] MEDS: INSULIN LISPRO 100 UNITS/ML SUBCUT SCH ×3 (07:37→21:00)
[2018-11-13] MEDS: ENOXAPARIN 120MG/0.8ML SYR SUBCUT SCH ×2 (07:43→21:00)
[2018-11-13] MEDS: HYDROMORPHONE HCL/PF 2MG/ML CPJ IV PRN (08:05)
[2018-11-13] MEDS: QUETIAPINE FUMARATE 25MG TABLET PO SCH ×2 (09:00→21:25)
[2018-11-13] MEDS: HYDROCODONE/ACETAMINOPHEN 5/325MG TABLET PO PRN ×2 (12:36→21:25)
[2018-11-13 22:04] LABS: HEMATOCRIT 27.5 % (36.0-48.0)
[2018-11-14] VITALS (10 sets, daily range): BP systolic 99–149; BP diastolic 38–61
[2018-11-14 01:09] LABS: INR 1.4; PROTHROMBIN TIME 13.7 sec (9.1-11.1)
[2018-11-14] MEDS: SODIUM CHLORIDE 0.9% INJ 3ML FLUSH IVF SCH ×3 (05:59→22:14)
[2018-11-14] MEDS: HYDROMORPHONE HCL/PF 2MG/ML CPJ IV PRN ×2 (06:03→21:57)
[2018-11-14] MEDS: BLOOD SUGAR DIAGNOSTIC STRIP TEST SCH ×4 (06:51→21:55)
[2018-11-14] MEDS: INSULIN LISPRO 100 UNITS/ML SUBCUT SCH ×4 (07:57→21:00)
[2018-11-14] MEDS ORDERED: BACITRACIN 15GM TUBE TOP ONE (08:02)
[2018-11-14] MEDS ORDERED: VANCOMYCIN HCL 500 MG/VIAL ONE (08:02)
[2018-11-14] MEDS ORDERED: NORMAL SALINE 0.9% 10 ML SYR ONE (08:03)
[2018-11-14] MEDS ORDERED: BACITRACIN 50,000 UNITS/VIAL ONE (08:03)
[2018-11-14] MEDS ORDERED: FENTANYL CITRATE/PF 50MCG/ML 2ML VIAL ONE ×2 (08:10→08:53)
[2018-11-14] MEDS ORDERED: ONDANSETRON HCL 4MG/2ML INJ ONE (08:11)
[2018-11-14] MEDS ORDERED: CEFAZOLIN SODIUM 1000MG/VIAL ONE (08:11)
[2018-11-14] MEDS ORDERED: LIDOCAINE HCL 1% 20ML VIAL (Pyxis) INJ ONE (08:11)
[2018-11-14] MEDS ORDERED: METOCLOPRAMIDE HCL 10MG/2ML VIAL ONE (08:12)
[2018-11-14] MEDS ORDERED: KETOROLAC 30MG/ML VIAL ONE (08:36)
[2018-11-14] MEDS: QUETIAPINE FUMARATE 25MG TABLET PO SCH ×3 (08:56→21:50)
[2018-11-14] MEDS: ENOXAPARIN 120MG/0.8ML SYR SUBCUT SCH ×2 (08:56→21:52)
[2018-11-14] MEDS ORDERED: HYDROMORPHONE HCL/PF 2MG/ML (OR) ONE (10:25)
[2018-11-14] MEDS ORDERED: CEFAZOLIN 2,000 MG in DEXT 5% WATER 100 ML IV SCH (11:00)
[2018-11-14] MEDS ORDERED: ONDANSETRON HCL 4MG/2ML INJ IV PRN (11:15)
[2018-11-14] MEDS ORDERED: MEPERIDINE HCL/PF 25MG/ML CPJ IV PRN ×2 (11:15)
[2018-11-14] MEDS: CEFAZOLIN 2,000 MG in DEXT 5% WATER 100 ML IV SCH ×2 (15:46→22:18)
[2018-11-15] VITALS (7 sets, daily range): BP systolic 90–126; BP diastolic 59–88
[2018-11-15] MEDS: HYDROCODONE/ACETAMINOPHEN 5/325MG TABLET PO PRN (03:05)
[2018-11-15] MEDS: SODIUM CHLORIDE 0.9% INJ 3ML FLUSH IVF SCH ×3 (05:23→21:28)
[2018-11-15] MEDS: CEFAZOLIN 2,000 MG in DEXT 5% WATER 100 ML IV SCH ×3 (05:23→21:27)
[2018-11-15 06:38] LABS: BASOPHILS % 0.5 % (0.0-2.0); EOSINOPHILS % 1.3 % (0.0-5.0); LYMPHOCYTES % 10.6 % (20.0-50.0); MEAN CORPUSCULAR HEMOGLOBIN 27.8 pg (28.0-32.0); MEAN CORPUSCULAR VOLUME 83.4 fL (81.0-99.0); MEAN PLATELET VOLUME 8.7 fl (7.4-10.4); MONOCYTES % 8.9 % (2.0-8.0); NEUTROPHILS % 78.7 % (40.0-76.0); PLATELET 198 x1000/uL (130-400); RED BLOOD CELL COUNT 3.24 mill/uL (4.2-5.4); RED CELL DISTRIBUTION WIDTH 16.1 % (11.6-14.6)
[2018-11-15] MEDS: BLOOD SUGAR DIAGNOSTIC STRIP TEST SCH ×4 (07:40→21:27)
[2018-11-15] MEDS: INSULIN LISPRO 100 UNITS/ML SUBCUT SCH ×4 (07:59→21:00)
[2018-11-15] MEDS: QUETIAPINE FUMARATE 25MG TABLET PO SCH ×2 (08:48→21:27)
[2018-11-15] MEDS: ENOXAPARIN 120MG/0.8ML SYR SUBCUT SCH (08:48)
[2018-11-15] MEDS: HYDROMORPHONE HCL/PF 2MG/ML CPJ IV PRN ×2 (08:57→18:33)
[2018-11-15] MEDS: RIVAROXABAN 15 MG TABLET PO SCH (18:32)
[2018-11-15] MEDS: ACETAMINOPHEN 325MG TABLET PO PRN (21:27)
[2018-11-16] VITALS (7 sets, daily range): BP systolic 95–130; BP diastolic 42–70
[2018-11-16] MEDS: BLOOD SUGAR DIAGNOSTIC STRIP TEST SCH ×4 (06:02→20:29)
[2018-11-16] MEDS: CEFAZOLIN 2,000 MG in DEXT 5% WATER 100 ML IV SCH (06:05)
[2018-11-16] MEDS: SODIUM CHLORIDE 0.9% INJ 3ML FLUSH IVF SCH ×3 (06:05→21:16)
[2018-11-16] MEDS: RIVAROXABAN 15 MG TABLET PO SCH ×2 (08:28→16:05)
[2018-11-16] MEDS: QUETIAPINE FUMARATE 25MG TABLET PO SCH ×2 (08:28→21:14)
[2018-11-16] MEDS: INSULIN LISPRO 100 UNITS/ML SUBCUT SCH ×4 (08:29→21:15)
[2018-11-16] MEDS ORDERED: ONDANSETRON HCL 4MG/2ML INJ IV PRN (13:45)
[2018-11-16] MEDS: HYDROMORPHONE HCL/PF 2MG/ML CPJ IV PRN (16:04)
[2018-11-16] MEDS ORDERED: HYDROCODONE/ACETAMINOPHEN 5/325MG TABLET PO PRN (19:45)
[2018-11-17 04:00] VITALS: BP 116/59
[2018-11-17] MEDS: SODIUM CHLORIDE 0.9% INJ 3ML FLUSH IVF SCH (05:28)
[2018-11-17] MEDS: BLOOD SUGAR DIAGNOSTIC STRIP TEST SCH ×3 (05:35→17:40)
[2018-11-17] MEDS: INSULIN LISPRO 100 UNITS/ML SUBCUT SCH ×3 (08:10→18:10)
[2018-11-17] MEDS: RIVAROXABAN 15 MG TABLET PO SCH ×2 (09:07→20:59)
[2018-11-17] MEDS: QUETIAPINE FUMARATE 25MG TABLET PO SCH ×2 (09:07→20:59)
[2018-11-17 12:00] VITALS: BP 106/39
[2018-11-17] MEDS: ACETAMINOPHEN 325MG TABLET PO PRN ×2 (15:51→21:00)
[2018-11-17 16:00] VITALS: BP 145/90
[2018-11-17] MEDS ORDERED: XAR15 PO (16:47)
[2018-11-17] MEDS ORDERED: QUET25TA PO (16:47)
[2018-11-17 19:36] VITALS: BP 145/90
== END 2018-11-17 22:15 | DRG 181 ==
LOC: ER 11:30 → UNDOADMIN 12:45 → 6WST 12:45 → EDBEDREQ 13:00 → EDBEDREQTM 13:00 → ENRESERV 13:43 → 6WST 18:02 → 3WST 21:03 → ENRESERV 22:22 → EDBEDREQDT 11-09 01:08 → EDBEDREQSVC 11-09 01:08 → EDBEDREQTM 11-09 01:08 → 3WST 11-09 01:53 → 7WST 11-12 12:18
PROVIDERS: ADMIT Family Medicine; ATTEND Family Medicine
PROC: 04HK3DZ Insertion of Intraluminal Device into Right Femoral Artery, Percutaneous Approach (ICD-10-PCS; principal; 2018-11-09)
PROC: 047J3DZ Dilation of Left External Iliac Artery with Intraluminal Device, Percutaneous Approach (ICD-10-PCS; 2018-11-09)
PROC: 0Y6D0Z1 Detachment at Left Upper Leg, High, Open Approach (ICD-10-PCS; 2018-11-14)
PROC: 047D3DZ Dilation of Left Common Iliac Artery with Intraluminal Device, Percutaneous Approach (ICD-10-PCS; 2018-11-14)
PROC: 30233Q1 Transfusion of Nonautologous White Cells into Peripheral Vein, Percutaneous Approach (ICD-10-PCS; 2018-11-14)
PROC: 02H633Z Insertion of Infusion Device into Right Atrium, Percutaneous Approach (ICD-10-PCS; 2018-11-14)
PROC: B54MZZA Ultrasonography of Right Upper Extremity Veins, Guidance (ICD-10-PCS; 2018-11-14)
PROC: 06H03DZ Insertion of Intraluminal Device into Inferior Vena Cava, Percutaneous Approach (ICD-10-PCS; 2018-11-14)
PROC: B5191ZZ Fluoroscopy of Inferior Vena Cava using Low Osmolar Contrast (ICD-10-PCS; 2018-11-14)
DX: I74.5 Embolism and thrombosis of iliac artery (principal); E43 Unspecified severe protein-calorie malnutrition; L89.159 Pressure ulcer of sacral region, unspecified stage; L89.153 Pressure ulcer of sacral region, stage 3; I96 Gangrene, not elsewhere classified; L89.323 Pressure ulcer of left buttock, stage 3; E11.21 Type 2 diabetes mellitus with diabetic nephropathy; L89.313 Pressure ulcer of right buttock, stage 3; I82.412 Acute embolism and thrombosis of left femoral vein; F20.9 Schizophrenia, unspecified; E11.65 Type 2 diabetes mellitus with hyperglycemia; I10 Essential (primary) hypertension; D64.9 Anemia, unspecified; E66.01 Morbid (severe) obesity due to excess calories; E11.42 Type 2 diabetes mellitus with diabetic polyneuropathy; I82.429 Acute embolism and thrombosis of unspecified iliac vein; F12.90 Cannabis use, unspecified, uncomplicated; Z74.01 Bed confinement status; Z86.73 Personal history of transient ischemic attack (TIA), and cerebral infarction without residual deficits; Z89.512 Acquired absence of left leg below knee; Z89.612 Acquired absence of left leg above knee; Z68.42 Body mass index [BMI] 45.0-49.9, adult; I77.1 Stricture of artery; E11.52 Type 2 diabetes mellitus with diabetic peripheral angiopathy with gangrene; S80.212A Abrasion, left knee, initial encounter; S80.211A Abrasion, right knee, initial encounter; X58.XXXA Exposure to other specified factors, initial encounter; Y93.89 Activity, other specified; Y92.89 Other specified places as the place of occurrence of the external cause; Y99.8 Other external cause status; Z79.84 Long term (current) use of oral hypoglycemic drugs
CPT/HCPCS: 36415; 36556; 36569; 37191; 37221; 71045; 72191; 73706; 75635; 75710; 76937; 80048; 80061; 80305; 81025; 82962; 84134; 85014; 85018; 85049; 85347; 85379; 85384; 86850; 86900; 86920; 88307; 88311; 93005; 93971; 96365; 96375; 97162; 99285; A6261; C1725; C1726; C1758; C1760; C1769; C1880; C1887; C1893; C1894; J0690; J1170; J1644; J1650; J1815; J1885; J2250; J2270; J2370; J2405; J2765; J3010; J3370; J3490; J7040; J7042; J7050; J7060; L3670; P9016; Q9967

== ENCOUNTER 2018-12-09 12:16 | Inpatient (IN) | payer MEDICAID ==
[~2018-12-09] VITALS: Ht 165.1 cm; Wt 110.2 kg
[~2018-12-09 12:16] MED LIST changes: +ACET325C5 PO; +CLON0.1T PO; +DOCU-138 PO; +HYDR-4001 PO; +QUET25TA PO; +XAR15 PO
[2018-12-09] MEDS ORDERED: SODIUM CHLORIDE 0.9% 1000ML BAG (SEPSIS BOLUS) IV ONE ×2 (13:45→14:45)
[2018-12-09 13:52] LABS: BASOPHILS % 0.7 % (0.0-2.0); EOSINOPHILS % 4.3 % (0.0-5.0); HEMATOCRIT. 29.3 % (36.0-48.0); HEMOGLOBIN. 9.4 g/dL (12.0-16.0); LYMPHOCYTES % 41.7 % (20.0-50.0); MEAN CORPUSCULAR HEMOGLOBIN 26.4 pg (28.0-32.0); MEAN CORPUSCULAR VOLUME 82.9 fL (81.0-99.0); MEAN PLATELET VOLUME 8.6 fl (7.4-10.4); MONOCYTES % 10.3 % (2.0-8.0); PLATELET 253 x1000/uL (130-400); RED BLOOD CELL COUNT 3.54 mill/uL (4.2-5.4); RED CELL DISTRIBUTION WIDTH 20.4 % (11.6-14.6)
[2018-12-09 14:00] LABS: CHLORIDE 104 mEq/L (98-107); INR 1.6; PROTHROMBIN TIME 15.7 sec (9.1-11.1)
[2018-12-09] MEDS ORDERED: CEFEPIME 1,000 MG in DEXTROSE 5% WATER 50 ML IV STA (15:27)
[2018-12-09] MEDS ORDERED: VANCOMYCIN 1 G PREMIX 200 ML IV STA (15:27)
[2018-12-09 15:41] LABS: CLARITY URINE CLEAR (CLEAR); COLOR URINE YELLOW (YELLOW); KETONES URINE NEGATIVE (NEGATIVE); LEUKOCYTE ESTERASE URINE NEGATIVE (NEGATIVE); NITRITE URINE NEGATIVE (NEGATIVE); OCCULT BLOOD URINE NEGATIVE (NEGATIVE); PROTEIN URINE NEGATIVE (NEGATIVE); SPECIFIC GRAVITY URINE 1.017 (1.005-1.030)
[2018-12-09] MEDS ORDERED: IPRATROPIUM/ALBUTEROL 0.5-3(2.5)MG/3ML NEB INH PRN (17:30)
[2018-12-09] MEDS ORDERED: HYDROMORPHONE HCL/PF 2MG/ML CPJ IV PRN (18:15)
[2018-12-09] MEDS: ONDANSETRON HCL 4MG/2ML INJ IV PRN (19:11)
[2018-12-09 22:35] VITALS: BP 147/59
[2018-12-09] MEDS: HYDROMORPHONE HCL/PF 2MG/ML CPJ IV PRN (23:05)
[2018-12-09 23:16] VITALS: BP 147/59
[2018-12-10] MEDS ORDERED: DEXTROSE 50% WATER 50ML SYRINGE IV PRN (00:30)
[2018-12-10 04:00] VITALS: BP 112/52
[2018-12-10] MEDS: HYDROMORPHONE HCL/PF 2MG/ML CPJ IV PRN ×4 (04:19→19:09)
[2018-12-10] MEDS: BLOOD SUGAR DIAGNOSTIC STRIP TEST SCH ×4 (06:31→21:00)
[2018-12-10] MEDS: INSULIN LISPRO 100 UNITS/ML SUBCUT SCH ×4 (06:31→21:00)
[2018-12-10 07:07] LABS: BASOPHILS % 0.3 % (0.0-2.0); EOSINOPHILS % 4.4 % (0.0-5.0); HEMATOCRIT. 29.2 % (36.0-48.0); HEMOGLOBIN. 9.3 g/dL (12.0-16.0); LYMPHOCYTES % 49.7 % (20.0-50.0); MEAN CORPUSCULAR HEMOGLOBIN 26.7 pg (28.0-32.0); MEAN CORPUSCULAR VOLUME 83.7 fL (81.0-99.0); MEAN PLATELET VOLUME 8.6 fl (7.4-10.4); MONOCYTES % 12.2 % (2.0-8.0); NEUTROPHILS % 33.4 % (40.0-76.0); PLATELET 194 x1000/uL (130-400); RED BLOOD CELL COUNT 3.49 mill/uL (4.2-5.4); RED CELL DISTRIBUTION WIDTH 20.4 % (11.6-14.6)
[2018-12-10 08:00] VITALS: BP 111/55
[2018-12-10 08:37] LABS: CHLORIDE 102 mEq/L (98-107)
[2018-12-10 09:42] LABS: LDL CHOLESTEROL 61 mg/dL (5-100)
[2018-12-10 09:50] LABS: HDL CHOLESTEROL 23 mg/dL (40-59)
[2018-12-10 12:00] VITALS: BP 106/50
[2018-12-10 16:00] VITALS: BP 107/64
[2018-12-10] MEDS ORDERED: HYDROCODONE/ACETAMINOPHEN 10/325MG TABLET PO PRN (19:00)
[2018-12-10] MEDS ORDERED: HYDROCODONE/ACETAMINOPHEN 5/325MG TABLET PO PRN (19:00)
[2018-12-10 20:00] VITALS: BP 108/52
[2018-12-10] MEDS: AMLODIPINE 5MG TABLET PO SCH (21:00)
[2018-12-10] MEDS: HYDROCORTISONE 1% RECTAL CREAM 30GM PR SCH (21:53)
[2018-12-10] MEDS: QUETIAPINE FUMARATE 25MG TABLET PO SCH (21:53)
[2018-12-11] VITALS: BP 115/59
[2018-12-11 04:00] VITALS: BP 135/62
[2018-12-11] MEDS: BLOOD SUGAR DIAGNOSTIC STRIP TEST SCH ×4 (06:04→20:43)
[2018-12-11] MEDS: INSULIN LISPRO 100 UNITS/ML SUBCUT SCH ×4 (06:04→20:43)
[2018-12-11 08:00] VITALS: BP 137/76
[2018-12-11] MEDS ORDERED: MULTIVITAMINS,THER W-MINERALS TABLET PO SCH (09:00)
[2018-12-11] MEDS: HYDROCORTISONE 1% RECTAL CREAM 30GM PR SCH ×2 (09:00→20:45)
[2018-12-11] MEDS ORDERED: ASPIRIN 325MG EC TABLET PO SCH (09:00)
[2018-12-11] MEDS: SENNOSIDES/DOCUSATE SOD 8.6/50MG TABLET PO SCH ×2 (10:00→17:00)
[2018-12-11] MEDS: AMLODIPINE 5MG TABLET PO SCH ×2 (10:00→20:44)
[2018-12-11] MEDS: QUETIAPINE FUMARATE 25MG TABLET PO SCH ×2 (10:00→20:44)
[2018-12-11 12:00] VITALS: BP 144/70
[2018-12-11] MEDS: HYDROMORPHONE HCL/PF 2MG/ML CPJ IV PRN ×2 (13:07→18:31)
[2018-12-11 16:00] VITALS: BP 110/59
[2018-12-11 19:46] LABS: INR 1.3; PROTHROMBIN TIME 13.4 sec (9.1-11.1)
[2018-12-11 20:00] VITALS: BP 117/66
[2018-12-12] VITALS: BP 106/58
[2018-12-12 04:00] VITALS: BP 122/75
[2018-12-12] MEDS: BLOOD SUGAR DIAGNOSTIC STRIP TEST SCH ×4 (06:04→21:00)
[2018-12-12] MEDS: INSULIN LISPRO 100 UNITS/ML SUBCUT SCH ×4 (06:05→21:00)
[2018-12-12 08:00] VITALS: BP 127/70
[2018-12-12 08:31] LABS: BASOPHILS % 0.2 % (0.0-2.0); EOSINOPHILS % 1.7 % (0.0-5.0); HEMATOCRIT. 26.5 % (36.0-48.0); HEMOGLOBIN. 8.2 g/dL (12.0-16.0); LYMPHOCYTES % 59.2 % (20.0-50.0); MEAN CORPUSCULAR HEMOGLOBIN 26.8 pg (28.0-32.0); MEAN CORPUSCULAR VOLUME 86.4 fL (81.0-99.0); MEAN PLATELET VOLUME 8.2 fl (7.4-10.4); MONOCYTES % 11.2 % (2.0-8.0); NEUTROPHILS % 27.7 % (40.0-76.0); PLATELET 288 x1000/uL (130-400); RED BLOOD CELL COUNT 3.07 mill/uL (4.2-5.4); RED CELL DISTRIBUTION WIDTH 20.9 % (11.6-14.6)
[2018-12-12 08:32] LABS: INR 1.3; PROTHROMBIN TIME 13.3 sec (9.1-11.1)
[2018-12-12] MEDS: AMLODIPINE 5MG TABLET PO SCH ×2 (09:00→20:59)
[2018-12-12] MEDS: SENNOSIDES/DOCUSATE SOD 8.6/50MG TABLET PO SCH ×2 (09:00→17:47)
[2018-12-12] MEDS: QUETIAPINE FUMARATE 25MG TABLET PO SCH ×2 (09:00→20:59)
[2018-12-12 09:29] LABS: CHLORIDE 105 mEq/L (98-107)
[2018-12-12 09:39] LABS: FOLIC ACID (FOLATE) SERUM 16.1 ng/mL (>5.38); TOTAL IRON BINDING CAPACITY 243 ug/dL (250-450)
[2018-12-12] MEDS: HYDROCORTISONE 1% RECTAL CREAM 30GM PR SCH ×2 (10:35→21:00)
[2018-12-12] MEDS ORDERED: BACITRACIN 15GM TUBE TOP ONE (10:51)
[2018-12-12] MEDS ORDERED: NORMAL SALINE 0.9% 10 ML SYR ONE (10:51)
[2018-12-12] MEDS ORDERED: GENTAMICIN SULF 40MG/ML 2ML VIAL ONE (10:51)
[2018-12-12] MEDS ORDERED: BUPIVACAINE HCL 0.5% (5MG/ML) 50ML ONE (10:51)
[2018-12-12] MEDS ORDERED: BACITRACIN 50,000 UNITS/VIAL ONE (10:51)
[2018-12-12] MEDS ORDERED: VANCOMYCIN HCL 500 MG/VIAL ONE (12:25)
[2018-12-12] MEDS ORDERED: FENTANYL CITRATE/PF 50MCG/ML 2ML VIAL ONE ×3 (12:39→12:58)
[2018-12-12] MEDS ORDERED: MIDAZOLAM HCL 2 MG/2 ML VIAL ONE (12:40)
[2018-12-12] MEDS ORDERED: PROPOFOL 200MG/20ML VIAL IV ONE (12:40)
[2018-12-12] MEDS ORDERED: PIPERACILLIN SODIUM/TAZOBACTAM 4.5 G in DEXT 5% WATER 100 ML IV SCH ×2 (13:30→17:00)
[2018-12-12] MEDS ORDERED: VANCOMYCIN 1 G PREMIX 200 ML IV SCH ×2 (13:30→23:00)
[2018-12-12] MEDS ORDERED: HYDROMORPHONE HCL/PF 2MG/ML CPJ IV PRN ×2 (13:45)
[2018-12-12] MEDS ORDERED: ONDANSETRON HCL 4MG/2ML INJ IV PRN (13:45)
[2018-12-12 15:02] VITALS: BP 120/48
[2018-12-12] MEDS: HYDROMORPHONE HCL/PF 2MG/ML CPJ IV PRN (18:42)
[2018-12-12 20:00] VITALS: BP 114/44
[2018-12-12] MEDS: PIPERACILLIN SODIUM/TAZOBACTAM 4.5 G in DEXT 5% WATER 100 ML IV SCH (23:10)
[2018-12-13] VITALS: BP 111/41
[2018-12-13 04:00] VITALS: BP 110/60
[2018-12-13] MEDS: PIPERACILLIN SODIUM/TAZOBACTAM 4.5 G in DEXT 5% WATER 100 ML IV SCH ×2 (05:05→11:57)
[2018-12-13] MEDS: HYDROMORPHONE HCL/PF 2MG/ML CPJ IV PRN ×4 (05:38→21:15)
[2018-12-13] MEDS: INSULIN LISPRO 100 UNITS/ML SUBCUT SCH ×4 (06:16→21:00)
[2018-12-13] MEDS: BLOOD SUGAR DIAGNOSTIC STRIP TEST SCH ×4 (06:16→21:02)
[2018-12-13 07:52] LABS: HEMATOCRIT. 30.4 % (36.0-48.0); HEMOGLOBIN. 9.6 g/dL (12.0-16.0); MEAN CORPUSCULAR HEMOGLOBIN 26.7 pg (28.0-32.0); MEAN CORPUSCULAR VOLUME 84.7 fL (81.0-99.0); MEAN PLATELET VOLUME 7.7 fl (7.4-10.4); PLATELET 262 x1000/uL (130-400); RED BLOOD CELL COUNT 3.58 mill/uL (4.2-5.4); RED CELL DISTRIBUTION WIDTH 21.2 % (11.6-14.6)
[2018-12-13 08:00] VITALS: BP 110/50
[2018-12-13 08:13] LABS: CHLORIDE 105 mEq/L (98-107)
[2018-12-13] MEDS: AMLODIPINE 5MG TABLET PO SCH ×2 (08:53→20:48)
[2018-12-13] MEDS: SENNOSIDES/DOCUSATE SOD 8.6/50MG TABLET PO SCH ×2 (08:54→16:50)
[2018-12-13] MEDS: QUETIAPINE FUMARATE 25MG TABLET PO SCH ×2 (08:54→20:48)
[2018-12-13] MEDS: HYDROCORTISONE 1% RECTAL CREAM 30GM PR SCH ×2 (08:55→21:15)
[2018-12-13 11:04] LABS: NUCLEATED RED BLOOD CELLS 1 /100 WBC; PLATELET ESTIMATE NORMAL
[2018-12-13 12:00] VITALS: BP 105/54
[2018-12-13 16:00] VITALS: BP 122/71
[2018-12-13] MEDS: PIPERACILLIN/TAZ 3.375G PREMIX 50 ML IV SCH ×2 (17:59→23:16)
[2018-12-13] MEDS: VANCOMYCIN 1250MG in DEXTROSE 5% WATER 250ML IV SCH (18:38)
[2018-12-13 20:00] VITALS: BP 119/70
[2018-12-14] VITALS: BP 124/69
[2018-12-14 04:00] VITALS: BP 128/71
[2018-12-14] MEDS: PIPERACILLIN/TAZ 3.375G PREMIX 50 ML IV SCH ×3 (06:39→18:55)
[2018-12-14] MEDS: HYDROMORPHONE HCL/PF 2MG/ML CPJ IV PRN ×3 (06:39→22:13)
[2018-12-14] MEDS: BLOOD SUGAR DIAGNOSTIC STRIP TEST SCH ×4 (06:53→21:08)
[2018-12-14] MEDS: INSULIN LISPRO 100 UNITS/ML SUBCUT SCH ×4 (06:56→21:00)
[2018-12-14 08:00] VITALS: BP 110/49
[2018-12-14] MEDS: AMLODIPINE 5MG TABLET PO SCH ×2 (09:00→20:47)
[2018-12-14 09:34] LABS: BASOPHILS % 0.2 % (0.0-2.0); EOSINOPHILS % 2.9 % (0.0-5.0); HEMATOCRIT. 31.3 % (36.0-48.0); HEMOGLOBIN. 9.8 g/dL (12.0-16.0); LYMPHOCYTES % 37.3 % (20.0-50.0); MEAN CORPUSCULAR HEMOGLOBIN 26.7 pg (28.0-32.0); MEAN PLATELET VOLUME 7.6 fl (7.4-10.4); MONOCYTES % 13.8 % (2.0-8.0); NEUTROPHILS % 45.8 % (40.0-76.0); PLATELET 263 x1000/uL (130-400); RED BLOOD CELL COUNT 3.68 mill/uL (4.2-5.4); RED CELL DISTRIBUTION WIDTH 21.2 % (11.6-14.6)
[2018-12-14] MEDS: SENNOSIDES/DOCUSATE SOD 8.6/50MG TABLET PO SCH ×2 (10:21→18:55)
[2018-12-14] MEDS: QUETIAPINE FUMARATE 25MG TABLET PO SCH ×2 (10:21→20:47)
[2018-12-14] MEDS: HYDROCORTISONE 1% RECTAL CREAM 30GM PR SCH ×2 (10:31→20:50)
[2018-12-14 12:00] VITALS: BP 110/49
[2018-12-14] MEDS: VANCOMYCIN 1250MG in DEXTROSE 5% WATER 250ML IV SCH (12:55)
[2018-12-14 16:00] VITALS: BP 128/73
[2018-12-14 20:00] VITALS: BP 143/75
[2018-12-15] VITALS: BP 108/68
[2018-12-15] MEDS: PIPERACILLIN/TAZ 3.375G PREMIX 50 ML IV SCH ×3 (01:03→11:38)
[2018-12-15 04:00] VITALS: BP 109/60
[2018-12-15 04:13] LABS: ANTI-CARDIOLIPIN AB IGA < 9 APL U/mL (0-11); ANTI-CARDIOLIPIN AB IGG < 9 GPL U/mL (0-14); ANTI-CARDIOLIPIN AB IGM < 9 MPL U/mL (0-12)
[2018-12-15] MEDS: INSULIN LISPRO 100 UNITS/ML SUBCUT SCH ×4 (06:51→20:36)
[2018-12-15] MEDS: BLOOD SUGAR DIAGNOSTIC STRIP TEST SCH ×4 (06:51→20:31)
[2018-12-15] MEDS: VANCOMYCIN 1250MG in DEXTROSE 5% WATER 250ML IV SCH (06:51)
[2018-12-15 08:00] VITALS: BP 124/47
[2018-12-15 08:04] LABS: HEMATOCRIT. 30.1 % (36.0-48.0); HEMOGLOBIN. 9.5 g/dL (12.0-16.0); MEAN CORPUSCULAR HEMOGLOBIN 26.5 pg (28.0-32.0); MEAN CORPUSCULAR VOLUME 83.7 fL (81.0-99.0); MEAN PLATELET VOLUME 7.8 fl (7.4-10.4); PLATELET 263 x1000/uL (130-400); RED CELL DISTRIBUTION WIDTH 21.2 % (11.6-14.6)
[2018-12-15] MEDS: QUETIAPINE FUMARATE 25MG TABLET PO SCH ×2 (08:33→20:31)
[2018-12-15] MEDS: AMLODIPINE 5MG TABLET PO SCH ×2 (08:33→20:31)
[2018-12-15] MEDS: SENNOSIDES/DOCUSATE SOD 8.6/50MG TABLET PO SCH ×2 (08:33→16:46)
[2018-12-15] MEDS: HYDROCORTISONE 1% RECTAL CREAM 30GM PR SCH ×2 (08:34→20:36)
[2018-12-15 11:37] LABS: BG CARBOXYHEMOGLOBIN 0.5 % (0.5-1.5); BG DEOXYHEMOGLOBIN 3.7 % (0.0-5.0); BG FRACTION INSPIRED OXYGEN 21; BG METHEMOGLOBIN 0.2 % (0.0-1.5); BG OXYGEN SATURATION 96.3 % (92.0-98.5); BG OXYHEMOGLOBIN 95.6 % (94.0-97.0); BG PCO2 32.2 mmHg (35.0-45.0); BG PO2 85.7 mmHg (75.0-100.0); BG SAMPLE SITE RIGHT BRACHIAL; BG TOTAL HEMOGLOBIN 9.9 g/dL (12.0-18.0); BG VENT MODE ROOM AIR
[2018-12-15] MEDS: SODIUM CHLORIDE 0.9% 1,000 ML IV SCH (11:39)
[2018-12-15 12:05] VITALS: BP 105/58
[2018-12-15 13:11] LABS: ANTI-MYELOPEROXIDASE AB < 9.0 U/mL (0.0-9.0); ANTI-PROTEINASE 3 ABS < 3.5 U/mL (0.0-3.5)
[2018-12-15 14:17] LABS: ATYPICAL P-ANCA <1:20 titer (Neg:<1:20); CYTOPLASMIC C-ANCA <1:20 titer (Neg:<1:20); PERINUCLEAR P-ANCA <1:20 titer (Neg:<1:20)
[2018-12-15] MEDS: HYDROMORPHONE HCL/PF 2MG/ML CPJ IV PRN ×2 (15:17→20:30)
[2018-12-15 15:33] LABS: CLARITY URINE CLOUDY (CLEAR); COLOR URINE YELLOW (YELLOW); KETONES URINE NEGATIVE (NEGATIVE); LEUKOCYTE ESTERASE URINE TRACE (NEGATIVE); NITRITE URINE NEGATIVE (NEGATIVE); OCCULT BLOOD URINE TRACE (NEGATIVE); PH URINE 5.5 (4.5-8.0); PROTEIN URINE 1+ (NEGATIVE); SPECIFIC GRAVITY URINE 1.015 (1.005-1.030)
[2018-12-15 16:00] VITALS: BP 96/54
[2018-12-15 19:07] LABS: PLATELET ESTIMATE NORMAL
[2018-12-15 20:00] VITALS: BP 109/86
[2018-12-15] MEDS: PIPERACILLIN/TAZ 2.25G PREMIX 50 ML IV SCH (20:50)
[2018-12-16] VITALS: BP 114/59
[2018-12-16] MEDS: SODIUM CHLORIDE 0.9% 1,000 ML IV SCH ×2 (03:55→13:16)
[2018-12-16 04:00] VITALS: BP 115/48
[2018-12-16 04:13] LABS: ANTI-THROMBIN ACTIVITY 109 % (75-135); DRVVT LA 84.5 sec (0.0-47.0); DRVVT MIX LA 61.1 sec (0.0-47.0); HEXAGONAL PHASE PHOSPHOLIPID 4 sec (0-11); LUPUS ANTICOAG INTERPRETATION Comment: (.); PROTEIN C FUNCTIONAL 67 % (73-180); PTT-LA 54.5 sec (0.0-51.9); PTT-LA MIX 50.5 sec (0.0-48.9)
[2018-12-16] MEDS: PIPERACILLIN/TAZ 2.25G PREMIX 50 ML IV SCH ×2 (05:54→13:10)
[2018-12-16] MEDS: INSULIN LISPRO 100 UNITS/ML SUBCUT SCH ×4 (06:07→21:00)
[2018-12-16] MEDS: BLOOD SUGAR DIAGNOSTIC STRIP TEST SCH ×4 (06:07→21:11)
[2018-12-16] MEDS: HYDROMORPHONE HCL/PF 2MG/ML CPJ IV PRN ×2 (07:09→15:44)
[2018-12-16 07:18] LABS: HEMATOCRIT. 28.7 % (36.0-48.0); HEMOGLOBIN. 9.1 g/dL (12.0-16.0); MEAN CORPUSCULAR HEMOGLOBIN 26.6 pg (28.0-32.0); MEAN CORPUSCULAR VOLUME 83.9 fL (81.0-99.0); MEAN PLATELET VOLUME 7.7 fl (7.4-10.4); PLATELET 253 x1000/uL (130-400); RED BLOOD CELL COUNT 3.43 mill/uL (4.2-5.4); RED CELL DISTRIBUTION WIDTH 20.1 % (11.6-14.6)
[2018-12-16 08:00] VITALS: BP 116/47
[2018-12-16 08:33] LABS: CHLORIDE 108 mEq/L (98-107)
[2018-12-16 08:40] LABS: PHOSPHORUS 6.2 mg/dL (2.5-4.9)
[2018-12-16 08:42] LABS: CREATINE KINASE 7 IU/L (26-192)
[2018-12-16] MEDS: SENNOSIDES/DOCUSATE SOD 8.6/50MG TABLET PO SCH ×2 (09:27→17:52)
[2018-12-16] MEDS: AMLODIPINE 5MG TABLET PO SCH ×2 (09:27→21:11)
[2018-12-16] MEDS: QUETIAPINE FUMARATE 25MG TABLET PO SCH ×2 (09:27→21:11)
[2018-12-16] MEDS: HYDROCORTISONE 1% RECTAL CREAM 30GM PR SCH (09:37)
[2018-12-16 10:32] LABS: PLATELET ESTIMATE NORMAL
[2018-12-16 12:22] VITALS: BP 104/55
[2018-12-16 16:24] VITALS: BP 122/58
[2018-12-16] MEDS ORDERED: ALBUMIN HUMAN 25GM/100ML (25%) IV NR (17:00)
[2018-12-16] MEDS: CEFAZOLIN 1000MG PREMIX 50 ML IV SCH (17:52)
[2018-12-16] MEDS: HYDROCODONE/ACETAMINOPHEN 5/325MG TABLET PO PRN (17:59)
[2018-12-16 20:00] VITALS: BP 154/59
[2018-12-17] VITALS: BP 153/54
[2018-12-17] MEDS: HYDROCODONE/ACETAMINOPHEN 5/325MG TABLET PO PRN ×3 (00:43→21:09)
[2018-12-17] MEDS: HYDROMORPHONE HCL/PF 2MG/ML CPJ IV PRN ×3 (03:46→15:42)
[2018-12-17 04:00] VITALS: BP 125/46
[2018-12-17] MEDS: CEFAZOLIN 1000MG PREMIX 50 ML IV SCH ×2 (06:30→18:57)
[2018-12-17] MEDS: BLOOD SUGAR DIAGNOSTIC STRIP TEST SCH ×4 (06:36→21:09)
[2018-12-17] MEDS: INSULIN LISPRO 100 UNITS/ML SUBCUT SCH ×4 (06:36→21:00)
[2018-12-17 08:00] VITALS: BP 126/72
[2018-12-17] MEDS: SENNOSIDES/DOCUSATE SOD 8.6/50MG TABLET PO SCH ×2 (09:10→18:57)
[2018-12-17] MEDS: QUETIAPINE FUMARATE 25MG TABLET PO SCH ×2 (09:10→21:09)
[2018-12-17] MEDS: AMLODIPINE 5MG TABLET PO SCH ×2 (09:10→21:09)
[2018-12-17 09:47] LABS: HEMATOCRIT. 28.6 % (36.0-48.0); HEMOGLOBIN. 9.1 g/dL (12.0-16.0); MEAN CORPUSCULAR HEMOGLOBIN 26.5 pg (28.0-32.0); MEAN CORPUSCULAR VOLUME 83.7 fL (81.0-99.0); MEAN PLATELET VOLUME 7.8 fl (7.4-10.4); PLATELET 249 x1000/uL (130-400); RED BLOOD CELL COUNT 3.41 mill/uL (4.2-5.4); RED CELL DISTRIBUTION WIDTH 20.6 % (11.6-14.6)
[2018-12-17 10:04] LABS: PHOSPHORUS 5.5 mg/dL (2.5-4.9)
[2018-12-17 13:00] VITALS: BP 131/76
[2018-12-17 16:00] VITALS: BP 99/69
[2018-12-17] MEDS: RIVAROXABAN 15 MG TABLET PO SCH (18:57)
[2018-12-17] MEDS: SODIUM CHLORIDE 0.45% 1,000 ML IV SCH (18:58)
[2018-12-17 20:00] VITALS: BP 123/47
[2018-12-17] MEDS: HYDROCORTISONE 1% RECTAL CREAM 30GM PR SCH (21:15)
[2018-12-17 22:40] LABS: PLATELET ESTIMATE NORMAL
[2018-12-18] VITALS: BP 107/73
[2018-12-18] MEDS: HYDROMORPHONE HCL/PF 2MG/ML CPJ IV PRN ×3 (01:02→20:24)
[2018-12-18 04:00] VITALS: BP 140/80
[2018-12-18 05:17] LABS: COMPLEMENT C3 154 mg/dL (82-167)
[2018-12-18] MEDS: CEFAZOLIN 1000MG PREMIX 50 ML IV SCH ×2 (06:32→20:03)
[2018-12-18] MEDS: BLOOD SUGAR DIAGNOSTIC STRIP TEST SCH ×4 (06:33→20:05)
[2018-12-18] MEDS: INSULIN LISPRO 100 UNITS/ML SUBCUT SCH ×4 (06:33→20:05)
[2018-12-18 07:16] LABS: BASOPHILS % 0.3 % (0.0-2.0); EOSINOPHILS % 5.4 % (0.0-5.0); HEMATOCRIT. 30.3 % (36.0-48.0); HEMOGLOBIN. 9.7 g/dL (12.0-16.0); LYMPHOCYTES % 46.6 % (20.0-50.0); MEAN CORPUSCULAR HEMOGLOBIN 26.6 pg (28.0-32.0); MEAN CORPUSCULAR VOLUME 83.5 fL (81.0-99.0); MEAN PLATELET VOLUME 7.8 fl (7.4-10.4); MONOCYTES % 10.3 % (2.0-8.0); NEUTROPHILS % 37.4 % (40.0-76.0); PLATELET 255 x1000/uL (130-400); RED BLOOD CELL COUNT 3.63 mill/uL (4.2-5.4)
[2018-12-18 07:26] LABS: CHLORIDE 109 mEq/L (98-107)
[2018-12-18 08:00] VITALS: BP 134/95
[2018-12-18] MEDS: HYDROCORTISONE 1% RECTAL CREAM 30GM PR SCH ×2 (09:00→20:23)
[2018-12-18] MEDS: HYDROCODONE/ACETAMINOPHEN 5/325MG TABLET PO PRN ×2 (09:02→15:41)
[2018-12-18] MEDS: AMLODIPINE 5MG TABLET PO SCH ×2 (09:03→20:03)
[2018-12-18] MEDS: RIVAROXABAN 15 MG TABLET PO SCH (09:03)
[2018-12-18] MEDS: SENNOSIDES/DOCUSATE SOD 8.6/50MG TABLET PO SCH ×2 (09:03→17:58)
[2018-12-18] MEDS: QUETIAPINE FUMARATE 25MG TABLET PO SCH ×2 (09:03→20:03)
[2018-12-18 12:00] VITALS: BP 119/56
[2018-12-18 16:00] VITALS: BP 121/58
[2018-12-18] MEDS ORDERED: RIVAROXABAN 15 MG TABLET PO SCH (17:15)
[2018-12-18] MEDS: APIXABAN 5 MG TABLET PO SCH (17:58)
[2018-12-18] MEDS: SODIUM CHLORIDE 0.45% 1,000 ML IV SCH (17:59)
[2018-12-18] MEDS ORDERED: MAGNESIUM 2 G PREMIX 50 ML IV NR (18:00)
[2018-12-18 20:00] VITALS: BP 164/60
[2018-12-19] VITALS: BP 142/59
[2018-12-19 04:00] VITALS: BP 134/71
[2018-12-19] MEDS: CEFAZOLIN 1000MG PREMIX 50 ML IV SCH ×2 (05:46→17:45)
[2018-12-19] MEDS: HYDROMORPHONE HCL/PF 2MG/ML CPJ IV PRN ×3 (05:55→22:23)
[2018-12-19] MEDS: BLOOD SUGAR DIAGNOSTIC STRIP TEST SCH ×4 (06:11→21:00)
[2018-12-19] MEDS: INSULIN LISPRO 100 UNITS/ML SUBCUT SCH ×4 (06:16→21:00)
[2018-12-19] MEDS: APIXABAN 5 MG TABLET PO SCH ×2 (06:17→17:46)
[2018-12-19 06:54] LABS: BASOPHILS % 0.2 % (0.0-2.0); EOSINOPHILS % 4.8 % (0.0-5.0); HEMATOCRIT. 30.9 % (36.0-48.0); HEMOGLOBIN. 9.7 g/dL (12.0-16.0); LYMPHOCYTES % 42.7 % (20.0-50.0); MEAN CORPUSCULAR HEMOGLOBIN 26.6 pg (28.0-32.0); MEAN CORPUSCULAR VOLUME 84.3 fL (81.0-99.0); MEAN PLATELET VOLUME 7.7 fl (7.4-10.4); MONOCYTES % 9.1 % (2.0-8.0); NEUTROPHILS % 43.2 % (40.0-76.0); PLATELET 238 x1000/uL (130-400); RED BLOOD CELL COUNT 3.66 mill/uL (4.2-5.4); RED CELL DISTRIBUTION WIDTH 19.7 % (11.6-14.6)
[2018-12-19 07:43] LABS: PHOSPHORUS 5.2 mg/dL (2.5-4.9)
[2018-12-19 08:00] VITALS: BP 121/40
[2018-12-19] MEDS: QUETIAPINE FUMARATE 25MG TABLET PO SCH ×2 (09:00→22:23)
[2018-12-19] MEDS: SENNOSIDES/DOCUSATE SOD 8.6/50MG TABLET PO SCH ×2 (09:00→17:46)
[2018-12-19] MEDS: AMLODIPINE 5MG TABLET PO SCH ×2 (09:01→22:23)
[2018-12-19] MEDS: HYDROCORTISONE 1% RECTAL CREAM 30GM PR SCH ×2 (09:08→21:00)
[2018-12-19] MEDS: HYDROCODONE/ACETAMINOPHEN 5/325MG TABLET PO PRN (09:45)
[2018-12-19 12:01] VITALS: BP 121/54
[2018-12-19] MEDS: SODIUM CHLORIDE 0.45% 1,000 ML IV SCH ×2 (15:44→22:40)
[2018-12-19 16:00] VITALS: BP 131/53
[2018-12-19 20:00] VITALS: BP 131/75
[2018-12-19] MEDS: ONDANSETRON HCL 4MG/2ML INJ IV PRN (22:21)
[2018-12-20] VITALS: BP 122/62
[2018-12-20] MEDS: CEFAZOLIN 1000MG PREMIX 50 ML IV SCH ×3 (02:53→17:40)
[2018-12-20 04:00] VITALS: BP 145/62
[2018-12-20] MEDS: BLOOD SUGAR DIAGNOSTIC STRIP TEST SCH ×4 (06:45→20:29)
[2018-12-20] MEDS: INSULIN LISPRO 100 UNITS/ML SUBCUT SCH ×4 (07:15→20:30)
[2018-12-20 08:00] VITALS: BP 116/42
[2018-12-20] MEDS: AMLODIPINE 5MG TABLET PO SCH ×2 (09:21→20:29)
[2018-12-20] MEDS: QUETIAPINE FUMARATE 25MG TABLET PO SCH ×2 (09:21→20:29)
[2018-12-20] MEDS: APIXABAN 5 MG TABLET PO SCH ×2 (09:21→17:40)
[2018-12-20] MEDS: SENNOSIDES/DOCUSATE SOD 8.6/50MG TABLET PO SCH ×2 (09:21→17:40)
[2018-12-20] MEDS: HYDROMORPHONE HCL/PF 2MG/ML CPJ IV PRN ×2 (09:25→11:49)
[2018-12-20 11:48] LABS: BASOPHILS % 0.3 % (0.0-2.0); EOSINOPHILS % 5.8 % (0.0-5.0); HEMOGLOBIN. 9.7 g/dL (12.0-16.0); LYMPHOCYTES % 43.9 % (20.0-50.0); MEAN CORPUSCULAR HEMOGLOBIN 26.4 pg (28.0-32.0); MEAN CORPUSCULAR VOLUME 83.8 fL (81.0-99.0); MEAN PLATELET VOLUME 8.2 fl (7.4-10.4); MONOCYTES % 10.4 % (2.0-8.0); NEUTROPHILS % 39.6 % (40.0-76.0); PLATELET 235 x1000/uL (130-400)
[2018-12-20] MEDS: HYDROCORTISONE 1% RECTAL CREAM 30GM PR SCH ×2 (11:49→21:12)
[2018-12-20 11:59] LABS: PHOSPHORUS 4.9 mg/dL (2.5-4.9)
[2018-12-20 12:00] VITALS: BP 110/55
[2018-12-20] MEDS: SODIUM CHLORIDE 0.45% 1,000 ML IV SCH (12:39)
[2018-12-20 16:00] VITALS: BP 145/52
[2018-12-20] MEDS: HYDROCODONE/ACETAMINOPHEN 5/325MG TABLET PO PRN ×2 (19:06→21:08)
[2018-12-20 20:00] VITALS: BP 123/60
[2018-12-21] VITALS: BP 148/70
[2018-12-21] MEDS: HYDROCODONE/ACETAMINOPHEN 5/325MG TABLET PO PRN ×3 (02:24→20:17)
[2018-12-21] MEDS: CEFAZOLIN 1000MG PREMIX 50 ML IV SCH ×3 (02:25→18:18)
[2018-12-21 04:00] VITALS: BP 151/76
[2018-12-21] MEDS: SODIUM CHLORIDE 0.45% 1,000 ML IV SCH ×2 (05:34→09:32)
[2018-12-21 06:19] LABS: BASOPHILS % 0.3 % (0.0-2.0); EOSINOPHILS % 5.1 % (0.0-5.0); HEMATOCRIT. 32.5 % (36.0-48.0); HEMOGLOBIN. 10.5 g/dL (12.0-16.0); LYMPHOCYTES % 40.1 % (20.0-50.0); MEAN CORPUSCULAR HEMOGLOBIN 26.9 pg (28.0-32.0); MEAN CORPUSCULAR VOLUME 83.4 fL (81.0-99.0); MEAN PLATELET VOLUME 8.2 fl (7.4-10.4); MONOCYTES % 9.9 % (2.0-8.0); NEUTROPHILS % 44.6 % (40.0-76.0); PLATELET 232 x1000/uL (130-400); RED CELL DISTRIBUTION WIDTH 19.8 % (11.6-14.6)
[2018-12-21 06:26] LABS: CHLORIDE 106 mEq/L (98-107)
[2018-12-21 06:47] LABS: PHOSPHORUS 4.4 mg/dL (2.5-4.9)
[2018-12-21] MEDS: BLOOD SUGAR DIAGNOSTIC STRIP TEST SCH ×4 (06:49→20:17)
[2018-12-21] MEDS: INSULIN LISPRO 100 UNITS/ML SUBCUT SCH ×4 (06:50→20:23)
[2018-12-21] MEDS: APIXABAN 5 MG TABLET PO SCH ×2 (06:52→18:18)
[2018-12-21 08:00] VITALS: BP 143/84
[2018-12-21 09:06] LABS: A/G RATIO 0.5 (0.7-1.7); ALBUMIN 2.3 g/dL (2.9-4.4); ALPHA-1-GLOBULIN 0.4 g/dL (0.0-0.4); ALPHA-2-GLOBULIN 0.9 g/dL (0.4-1.0); GAMMA GLOBULINS 2.4 g/dL (0.4-1.8); GLOBULIN TOTAL 4.5 g/dL (2.2-3.9); IMMUNOGLOBULIN A 481 mg/dL (87-352); IMMUNOGLOBULIN G 2553 mg/dL (700-1600); IMMUNOGLOBULIN M 10 mg/dL (26-217); M-SPIKE Not Observed g/dL (Not Observed); TOTAL PROTEIN SERUM 6.8 g/dL (6.0-8.5)
[2018-12-21] MEDS: SENNOSIDES/DOCUSATE SOD 8.6/50MG TABLET PO SCH ×2 (09:31→18:18)
[2018-12-21] MEDS: QUETIAPINE FUMARATE 25MG TABLET PO SCH ×2 (09:31→20:16)
[2018-12-21] MEDS: HYDROCORTISONE 1% RECTAL CREAM 30GM PR SCH ×2 (09:31→21:00)
[2018-12-21] MEDS: AMLODIPINE 5MG TABLET PO SCH ×2 (09:31→20:16)
[2018-12-21 12:00] VITALS: BP 135/81
[2018-12-21] MEDS: SODIUM CHLORIDE 0.9% 1,000 ML IV SCH (14:03)
[2018-12-21] MEDS ORDERED: PAMIDRONATE DISODIUM 30 MG in SODIUM CHLORIDE 0.9% 500 ML IV NR (14:30)
[2018-12-21] MEDS: HYDROMORPHONE HCL/PF 2MG/ML CPJ IV PRN ×2 (15:49→21:54)
[2018-12-21 16:00] VITALS: BP 131/49
[2018-12-21 20:00] VITALS: BP 129/55
[2018-12-21] MEDS: ATORVASTATIN CALCIUM 10MG TABLET PO SCH (20:16)
[2018-12-22] VITALS: BP 135/62
[2018-12-22] MEDS: CEFAZOLIN 1000MG PREMIX 50 ML IV SCH ×3 (02:00→17:45)
[2018-12-22] MEDS: SODIUM CHLORIDE 0.9% 1,000 ML IV SCH ×3 (02:00→22:50)
[2018-12-22 04:00] VITALS: BP 122/59
[2018-12-22] MEDS: INSULIN LISPRO 100 UNITS/ML SUBCUT SCH ×4 (06:18→21:00)
[2018-12-22] MEDS: BLOOD SUGAR DIAGNOSTIC STRIP TEST SCH ×4 (06:18→21:45)
[2018-12-22] MEDS: APIXABAN 5 MG TABLET PO SCH ×2 (06:18→17:44)
[2018-12-22 06:26] LABS: BASOPHILS % 0.3 % (0.0-2.0); HEMATOCRIT. 31.4 % (36.0-48.0); LYMPHOCYTES % 31.4 % (20.0-50.0); MEAN CORPUSCULAR HEMOGLOBIN 26.6 pg (28.0-32.0); MEAN CORPUSCULAR VOLUME 83.9 fL (81.0-99.0); MEAN PLATELET VOLUME 8.4 fl (7.4-10.4); MONOCYTES % 11.4 % (2.0-8.0); NEUTROPHILS % 50.9 % (40.0-76.0); PLATELET 227 x1000/uL (130-400); RED BLOOD CELL COUNT 3.75 mill/uL (4.2-5.4); RED CELL DISTRIBUTION WIDTH 19.4 % (11.6-14.6)
[2018-12-22] MEDS: ONDANSETRON HCL 4MG/2ML INJ IV PRN (06:28)
[2018-12-22 07:31] LABS: CHLORIDE 113 mEq/L (98-107)
[2018-12-22 08:00] VITALS: BP 176/94
[2018-12-22] MEDS: SENNOSIDES/DOCUSATE SOD 8.6/50MG TABLET PO SCH ×2 (08:42→17:44)
[2018-12-22] MEDS: AMLODIPINE 5MG TABLET PO SCH ×2 (08:43→21:45)
[2018-12-22] MEDS: QUETIAPINE FUMARATE 25MG TABLET PO SCH ×2 (08:43→21:44)
[2018-12-22] MEDS: HYDROCORTISONE 1% RECTAL CREAM 30GM PR SCH ×2 (08:47→21:47)
[2018-12-22 10:10] LABS: ANGIOTENSION CONVERTING ENZYME 49 U/L (14-82)
[2018-12-22] MEDS ORDERED: PAMIDRONATE DISODIUM 30 MG in SODIUM CHLORIDE 0.9% 500 ML IV SCH (11:00)
[2018-12-22 12:00] VITALS: BP 153/83
[2018-12-22 16:00] VITALS: BP 136/91
[2018-12-22 20:00] VITALS: BP 162/104
[2018-12-22] MEDS: HYDROMORPHONE HCL/PF 2MG/ML CPJ IV PRN (20:03)
[2018-12-22] MEDS: ATORVASTATIN CALCIUM 10MG TABLET PO SCH (21:45)
[2018-12-23] VITALS: BP 125/65
[2018-12-23] MEDS: CEFAZOLIN 1000MG PREMIX 50 ML IV SCH ×3 (02:00→17:50)
[2018-12-23 04:00] VITALS: BP 129/73
[2018-12-23 07:13] LABS: BASOPHILS % 0.4 % (0.0-2.0); EOSINOPHILS % 5.2 % (0.0-5.0); HEMATOCRIT. 31.9 % (36.0-48.0); HEMOGLOBIN. 10.1 g/dL (12.0-16.0); LYMPHOCYTES % 30.9 % (20.0-50.0); MEAN CORPUSCULAR HEMOGLOBIN 26.7 pg (28.0-32.0); MEAN CORPUSCULAR VOLUME 84.2 fL (81.0-99.0); MEAN PLATELET VOLUME 8.3 fl (7.4-10.4); MONOCYTES % 9.9 % (2.0-8.0); NEUTROPHILS % 53.6 % (40.0-76.0); PLATELET 223 x1000/uL (130-400); RED BLOOD CELL COUNT 3.79 mill/uL (4.2-5.4); RED CELL DISTRIBUTION WIDTH 19.7 % (11.6-14.6)
[2018-12-23] MEDS: INSULIN LISPRO 100 UNITS/ML SUBCUT SCH ×4 (07:15→21:00)
[2018-12-23] MEDS: BLOOD SUGAR DIAGNOSTIC STRIP TEST SCH ×4 (07:32→21:46)
[2018-12-23] MEDS: APIXABAN 5 MG TABLET PO SCH ×2 (07:33→16:47)
[2018-12-23 07:53] LABS: CHLORIDE 116 mEq/L (98-107)
[2018-12-23 08:00] VITALS: BP 124/56
[2018-12-23 08:23] LABS: PHOSPHORUS 2.9 mg/dL (2.5-4.9)
[2018-12-23] MEDS: SENNOSIDES/DOCUSATE SOD 8.6/50MG TABLET PO SCH ×2 (08:31→16:47)
[2018-12-23] MEDS: AMLODIPINE 5MG TABLET PO SCH ×2 (08:31→21:45)
[2018-12-23] MEDS: QUETIAPINE FUMARATE 25MG TABLET PO SCH ×2 (08:31→21:45)
[2018-12-23] MEDS: HYDROCORTISONE 1% RECTAL CREAM 30GM PR SCH ×2 (08:32→21:00)
[2018-12-23 12:00] VITALS: BP 127/59
[2018-12-23] MEDS: SODIUM CHLORIDE 0.9% 1,000 ML IV SCH (12:06)
[2018-12-23 16:00] VITALS: BP 113/54
[2018-12-23] MEDS: HYDROMORPHONE HCL/PF 2MG/ML CPJ IV PRN (16:48)
[2018-12-23 19:10] LABS: 25-HYDROXY VITAMIN D3 10 ng/mL (.)
[2018-12-23 20:00] VITALS: BP 121/56
[2018-12-23] MEDS: ATORVASTATIN CALCIUM 10MG TABLET PO SCH (21:45)
[2018-12-23] MEDS: HYDROCODONE/ACETAMINOPHEN 5/325MG TABLET PO PRN (22:21)
[2018-12-24] VITALS: BP 117/42
[2018-12-24] MEDS: HYDROCODONE/ACETAMINOPHEN 5/325MG TABLET PO PRN ×2 (03:13→18:38)
[2018-12-24] MEDS: SODIUM CHLORIDE 0.9% 1,000 ML IV SCH ×2 (03:17→16:52)
[2018-12-24 04:00] VITALS: BP 135/57
[2018-12-24] MEDS: BLOOD SUGAR DIAGNOSTIC STRIP TEST SCH ×4 (06:33→21:13)
[2018-12-24] MEDS: APIXABAN 5 MG TABLET PO SCH ×2 (06:33→16:52)
[2018-12-24] MEDS: INSULIN LISPRO 100 UNITS/ML SUBCUT SCH ×4 (06:53→21:00)
[2018-12-24] MEDS: HYDROMORPHONE HCL/PF 2MG/ML CPJ IV PRN ×2 (07:08→15:27)
[2018-12-24 07:09] LABS: BASOPHILS % 0.5 % (0.0-2.0); EOSINOPHILS % 4.3 % (0.0-5.0); HEMATOCRIT. 29.4 % (36.0-48.0); HEMOGLOBIN. 9.4 g/dL (12.0-16.0); LYMPHOCYTES % 36.1 % (20.0-50.0); MEAN CORPUSCULAR HEMOGLOBIN 26.6 pg (28.0-32.0); MEAN CORPUSCULAR VOLUME 83.6 fL (81.0-99.0); MEAN PLATELET VOLUME 8.2 fl (7.4-10.4); MONOCYTES % 11.8 % (2.0-8.0); NEUTROPHILS % 47.3 % (40.0-76.0); PLATELET 234 x1000/uL (130-400); RED BLOOD CELL COUNT 3.52 mill/uL (4.2-5.4); RED CELL DISTRIBUTION WIDTH 19.8 % (11.6-14.6)
[2018-12-24 07:29] LABS: CHLORIDE 112 mEq/L (98-107)
[2018-12-24 07:41] LABS: PHOSPHORUS 2.5 mg/dL (2.5-4.9)
[2018-12-24 08:00] VITALS: BP 122/70
[2018-12-24] MEDS: QUETIAPINE FUMARATE 25MG TABLET PO SCH ×2 (09:49→21:43)
[2018-12-24] MEDS: AMLODIPINE 5MG TABLET PO SCH ×2 (09:49→21:43)
[2018-12-24] MEDS: SENNOSIDES/DOCUSATE SOD 8.6/50MG TABLET PO SCH ×2 (09:49→16:52)
[2018-12-24 12:00] VITALS: BP 149/78
[2018-12-24 16:00] VITALS: BP 132/72
[2018-12-24 20:00] VITALS: BP 128/43
[2018-12-24] MEDS: HYDROCORTISONE 1% RECTAL CREAM 30GM PR SCH (21:00)
[2018-12-24] MEDS: ATORVASTATIN CALCIUM 10MG TABLET PO SCH (21:43)
[2018-12-25] VITALS: BP 135/53
[2018-12-25 04:00] VITALS: BP 127/51
[2018-12-25] MEDS: HYDROMORPHONE HCL/PF 2MG/ML CPJ IV PRN ×2 (05:51→12:43)
[2018-12-25] MEDS: SODIUM CHLORIDE 0.9% 1,000 ML IV SCH (05:52)
[2018-12-25] MEDS: BLOOD SUGAR DIAGNOSTIC STRIP TEST SCH ×4 (06:18→21:00)
[2018-12-25] MEDS: INSULIN LISPRO 100 UNITS/ML SUBCUT SCH ×4 (06:18→21:00)
[2018-12-25] MEDS: APIXABAN 5 MG TABLET PO SCH ×2 (06:20→17:27)
[2018-12-25 06:34] LABS: CHLORIDE 115 mEq/L (98-107)
[2018-12-25 06:51] LABS: BASOPHILS % 0.2 % (0.0-2.0); EOSINOPHILS % 4.6 % (0.0-5.0); HEMATOCRIT. 28.1 % (36.0-48.0); HEMOGLOBIN. 8.9 g/dL (12.0-16.0); LYMPHOCYTES % 39.7 % (20.0-50.0); MEAN CORPUSCULAR HEMOGLOBIN 26.6 pg (28.0-32.0); MEAN CORPUSCULAR VOLUME 83.9 fL (81.0-99.0); MONOCYTES % 12.9 % (2.0-8.0); NEUTROPHILS % 42.6 % (40.0-76.0); PLATELET 223 x1000/uL (130-400); RED BLOOD CELL COUNT 3.35 mill/uL (4.2-5.4); RED CELL DISTRIBUTION WIDTH 19.5 % (11.6-14.6)
[2018-12-25 08:00] VITALS: BP 123/62
[2018-12-25] MEDS: HYDROCORTISONE 1% RECTAL CREAM 30GM PR SCH ×2 (08:20→23:55)
[2018-12-25] MEDS: QUETIAPINE FUMARATE 25MG TABLET PO SCH ×2 (08:21→22:15)
[2018-12-25] MEDS: SENNOSIDES/DOCUSATE SOD 8.6/50MG TABLET PO SCH ×2 (08:21→17:27)
[2018-12-25] MEDS: AMLODIPINE 5MG TABLET PO SCH ×2 (08:21→22:17)
[2018-12-25] MEDS: HYDROCODONE/ACETAMINOPHEN 5/325MG TABLET PO PRN ×2 (08:22→17:31)
[2018-12-25 12:00] VITALS: BP 119/63
[2018-12-25] MEDS: DEXTROSE 5% WATER 1,000 ML IV SCH (12:44)
[2018-12-25] MEDS: POTASSIUM CHLORIDE 20MEQ/PACKET PO SCH ×2 (13:00→17:27)
[2018-12-25 16:00] VITALS: BP 121/79
[2018-12-25] MEDS: CEFAZOLIN 1000MG PREMIX 50 ML IV SCH (17:27)
[2018-12-25 20:00] VITALS: BP 136/71
[2018-12-25] MEDS: ATORVASTATIN CALCIUM 10MG TABLET PO SCH (22:15)
[2018-12-26] VITALS: BP 141/75
[2018-12-26] MEDS: CEFAZOLIN 1000MG PREMIX 50 ML IV SCH ×3 (01:05→17:21)
[2018-12-26 04:00] VITALS: BP 144/83
[2018-12-26] MEDS: ONDANSETRON HCL 4MG/2ML INJ IV PRN (04:54)
[2018-12-26] MEDS: DEXTROSE 5% WATER 1,000 ML IV SCH (04:54)
[2018-12-26] MEDS: INSULIN LISPRO 100 UNITS/ML SUBCUT SCH ×4 (06:46→21:00)
[2018-12-26] MEDS: BLOOD SUGAR DIAGNOSTIC STRIP TEST SCH ×4 (06:46→21:09)
[2018-12-26 07:19] LABS: BASOPHILS % 0.4 % (0.0-2.0); EOSINOPHILS % 4.6 % (0.0-5.0); HEMATOCRIT. 28.8 % (36.0-48.0); HEMOGLOBIN. 9.1 g/dL (12.0-16.0); LYMPHOCYTES % 44.4 % (20.0-50.0); MEAN CORPUSCULAR HEMOGLOBIN 26.5 pg (28.0-32.0); MEAN CORPUSCULAR VOLUME 83.8 fL (81.0-99.0); MEAN PLATELET VOLUME 8.1 fl (7.4-10.4); MONOCYTES % 11.5 % (2.0-8.0); NEUTROPHILS % 39.1 % (40.0-76.0); PLATELET 244 x1000/uL (130-400); RED BLOOD CELL COUNT 3.44 mill/uL (4.2-5.4); RED CELL DISTRIBUTION WIDTH 19.3 % (11.6-14.6)
[2018-12-26 07:22] LABS: CHLORIDE 113 mEq/L (98-107)
[2018-12-26] MEDS: APIXABAN 5 MG TABLET PO SCH ×2 (07:54→17:21)
[2018-12-26] MEDS: POTASSIUM CHLORIDE 20MEQ/PACKET PO SCH ×2 (08:03→10:36)
[2018-12-26] MEDS: SENNOSIDES/DOCUSATE SOD 8.6/50MG TABLET PO SCH ×3 (08:03→17:21)
[2018-12-26 08:04] VITALS: BP 133/71
[2018-12-26] MEDS: HYDROCORTISONE 1% RECTAL CREAM 30GM PR SCH ×2 (08:06→21:52)
[2018-12-26] MEDS: QUETIAPINE FUMARATE 25MG TABLET PO SCH ×3 (08:06→21:55)
[2018-12-26] MEDS: AMLODIPINE 5MG TABLET PO SCH ×3 (08:06→21:54)
[2018-12-26 12:00] VITALS: BP 121/55
[2018-12-26] MEDS ORDERED: POTASSIUM-SODIUM PHOSPHATE POWDER PACKET PO SCH (12:30)
[2018-12-26] MEDS ORDERED: MAGNESIUM 2 G PREMIX 50 ML IV SCH (14:00)
[2018-12-26] MEDS: HYDROMORPHONE HCL/PF 2MG/ML CPJ IV PRN (14:38)
[2018-12-26 16:00] VITALS: BP 105/49
[2018-12-26] MEDS ORDERED: KCL 20MEQ/100ML PREMIX 100 ML IV SCH (18:00)
[2018-12-26 20:00] VITALS: BP 139/78
[2018-12-26] MEDS ORDERED: HYDROMORPHONE HCL/PF 2MG/ML CPJ IV PRN (20:05)
[2018-12-26] MEDS: ATORVASTATIN CALCIUM 10MG TABLET PO SCH (21:55)
[2018-12-27] VITALS: BP 125/65
[2018-12-27] MEDS: CEFAZOLIN 1000MG PREMIX 50 ML IV SCH ×3 (00:16→18:20)
[2018-12-27] MEDS: DEXTROSE 5% WATER 1,000 ML IV SCH (00:16)
[2018-12-27 04:00] VITALS: BP 125/78
[2018-12-27] MEDS: BLOOD SUGAR DIAGNOSTIC STRIP TEST SCH ×4 (06:34→21:00)
[2018-12-27] MEDS: INSULIN LISPRO 100 UNITS/ML SUBCUT SCH ×4 (06:34→21:00)
[2018-12-27 06:38] LABS: BASOPHILS % 0.3 % (0.0-2.0); HEMATOCRIT. 30.7 % (36.0-48.0); HEMOGLOBIN. 9.7 g/dL (12.0-16.0); LYMPHOCYTES % 43.2 % (20.0-50.0); MEAN CORPUSCULAR HEMOGLOBIN 26.3 pg (28.0-32.0); MEAN CORPUSCULAR VOLUME 83.6 fL (81.0-99.0); MEAN PLATELET VOLUME 8.1 fl (7.4-10.4); MONOCYTES % 12.4 % (2.0-8.0); NEUTROPHILS % 42.1 % (40.0-76.0); PLATELET 261 x1000/uL (130-400); RED BLOOD CELL COUNT 3.68 mill/uL (4.2-5.4); RED CELL DISTRIBUTION WIDTH 19.3 % (11.6-14.6)
[2018-12-27 06:47] LABS: CHLORIDE 115 mEq/L (98-107)
[2018-12-27] MEDS: ONDANSETRON HCL 4MG/2ML INJ IV PRN (06:58)
[2018-12-27 08:00] VITALS: BP 150/96
[2018-12-27] MEDS: APIXABAN 5 MG TABLET PO SCH ×2 (08:00→18:20)
[2018-12-27] MEDS: SENNOSIDES/DOCUSATE SOD 8.6/50MG TABLET PO SCH ×2 (08:03→18:20)
[2018-12-27] MEDS: QUETIAPINE FUMARATE 25MG TABLET PO SCH ×2 (08:03→21:06)
[2018-12-27] MEDS: AMLODIPINE 5MG TABLET PO SCH ×2 (08:03→21:00)
[2018-12-27] MEDS ORDERED: HYDROCODONE/ACETAMINOPHEN 5/325MG TABLET PO PRN (08:30)
[2018-12-27] MEDS ORDERED: POTASSIUM CHLORIDE 20MEQ TABLET SR PO NR (08:30)
[2018-12-27] MEDS: HYDROCORTISONE 1% RECTAL CREAM 30GM PR SCH ×2 (10:49→21:00)
[2018-12-27] MEDS: HYDROMORPHONE HCL/PF 2MG/ML CPJ IV PRN ×2 (10:50→22:22)
[2018-12-27 12:00] VITALS: BP 139/69
[2018-12-27 16:00] VITALS: BP 131/71
[2018-12-27 20:00] VITALS: BP 104/57
[2018-12-27] MEDS: ATORVASTATIN CALCIUM 10MG TABLET PO SCH (21:06)
[2018-12-28] VITALS: BP 138/84
[2018-12-28] MEDS: CEFAZOLIN 1000MG PREMIX 50 ML IV SCH ×3 (00:45→15:23)
[2018-12-28 04:00] VITALS: BP 135/67
[2018-12-28] MEDS: APIXABAN 5 MG TABLET PO SCH ×2 (06:20→18:38)
[2018-12-28] MEDS: HYDROMORPHONE HCL/PF 2MG/ML CPJ IV PRN ×2 (06:21→15:55)
[2018-12-28 06:47] LABS: BASOPHILS % 0.5 % (0.0-2.0); HEMATOCRIT. 29.4 % (36.0-48.0); HEMOGLOBIN. 9.2 g/dL (12.0-16.0); LYMPHOCYTES % 46.3 % (20.0-50.0); MEAN CORPUSCULAR HEMOGLOBIN 26.5 pg (28.0-32.0); MEAN CORPUSCULAR VOLUME 84.3 fL (81.0-99.0); MEAN PLATELET VOLUME 7.8 fl (7.4-10.4); MONOCYTES % 14.1 % (2.0-8.0); NEUTROPHILS % 37.1 % (40.0-76.0); PLATELET 222 x1000/uL (130-400); RED BLOOD CELL COUNT 3.49 mill/uL (4.2-5.4); RED CELL DISTRIBUTION WIDTH 19.6 % (11.6-14.6)
[2018-12-28] MEDS: BLOOD SUGAR DIAGNOSTIC STRIP TEST SCH ×4 (06:50→20:49)
[2018-12-28] MEDS: DEXTROSE 5% WATER 1,000 ML IV SCH (06:50)
[2018-12-28] MEDS: INSULIN LISPRO 100 UNITS/ML SUBCUT SCH ×4 (06:51→20:49)
[2018-12-28 07:29] LABS: CHLORIDE 114 mEq/L (98-107)
[2018-12-28 07:42] LABS: PHOSPHORUS 1.9 mg/dL (2.5-4.9)
[2018-12-28 08:00] VITALS: BP 142/59
[2018-12-28] MEDS: SENNOSIDES/DOCUSATE SOD 8.6/50MG TABLET PO SCH ×2 (09:31→18:38)
[2018-12-28] MEDS: QUETIAPINE FUMARATE 25MG TABLET PO SCH ×2 (09:31→20:49)
[2018-12-28] MEDS: AMLODIPINE 5MG TABLET PO SCH ×2 (09:31→20:49)
[2018-12-28] MEDS: HYDROCORTISONE 1% RECTAL CREAM 30GM PR SCH ×2 (09:31→20:50)
[2018-12-28 12:00] VITALS: BP 128/69
[2018-12-28] MEDS: ONDANSETRON HCL 4MG/2ML INJ IV PRN (14:41)
[2018-12-28 15:50] VITALS: BP 133/67
[2018-12-28] MEDS: PANTOPRAZOLE 40MG DR TABLET PO SCH (16:06)
[2018-12-28] MEDS ORDERED: POTASSIUM PHOS,M-BASIC-D-BASIC 30 MMOL in DEXT 5% WATER 500 ML IV SCH (17:00)
[2018-12-28] MEDS: METOCLOPRAMIDE HCL 10MG/2ML VIAL IV SCH (18:38)
[2018-12-28 20:00] VITALS: BP 132/73
[2018-12-28] MEDS: ATORVASTATIN CALCIUM 10MG TABLET PO SCH (20:49)
[2018-12-29] VITALS: BP 141/72
[2018-12-29] MEDS: METOCLOPRAMIDE HCL 10MG/2ML VIAL IV SCH ×3 (00:01→12:18)
[2018-12-29] MEDS: CEFAZOLIN 1000MG PREMIX 50 ML IV SCH ×2 (00:01→09:05)
[2018-12-29] MEDS: HYDROMORPHONE HCL/PF 2MG/ML CPJ IV PRN ×3 (00:02→12:33)
[2018-12-29] MEDS: DEXTROSE 5% WATER 1,000 ML IV SCH ×2 (03:11→12:19)
[2018-12-29 04:00] VITALS: BP 121/65
[2018-12-29] MEDS: PANTOPRAZOLE 40MG DR TABLET PO SCH (06:03)
[2018-12-29] MEDS: APIXABAN 5 MG TABLET PO SCH (06:16)
[2018-12-29] MEDS: INSULIN LISPRO 100 UNITS/ML SUBCUT SCH ×2 (06:16→11:56)
[2018-12-29] MEDS: BLOOD SUGAR DIAGNOSTIC STRIP TEST SCH ×2 (06:16→11:55)
[2018-12-29 07:04] LABS: CHLORIDE 117 mEq/L (98-107)
[2018-12-29 07:12] LABS: BASOPHILS % 0.4 % (0.0-2.0); EOSINOPHILS % 2.6 % (0.0-5.0); LYMPHOCYTES % 44.8 % (20.0-50.0); MEAN CORPUSCULAR VOLUME 83.5 fL (81.0-99.0); MEAN PLATELET VOLUME 7.8 fl (7.4-10.4); MONOCYTES % 14.7 % (2.0-8.0); NEUTROPHILS % 37.5 % (40.0-76.0); PLATELET 211 x1000/uL (130-400); RED BLOOD CELL COUNT 3.35 mill/uL (4.2-5.4); RED CELL DISTRIBUTION WIDTH 19.7 % (11.6-14.6)
[2018-12-29 07:16] LABS: PHOSPHORUS 2.6 mg/dL (2.5-4.9)
[2018-12-29 08:21] VITALS: BP 105/58
[2018-12-29] MEDS: AMLODIPINE 5MG TABLET PO SCH (09:06)
[2018-12-29] MEDS: SENNOSIDES/DOCUSATE SOD 8.6/50MG TABLET PO SCH (09:06)
[2018-12-29] MEDS: QUETIAPINE FUMARATE 25MG TABLET PO SCH (09:06)
[2018-12-29] MEDS: HYDROCORTISONE 1% RECTAL CREAM 30GM PR SCH (09:06)
[2018-12-29] MEDS ORDERED: MAGNESIUM 2 G PREMIX 50 ML IV SCH (10:00)
[2018-12-29 12:00] VITALS: BP 119/83
[2018-12-29] MEDS ORDERED: SODIUM HYPOCHLORITE 0.125% 473ML SOLUTION TOP SCH (12:30)
[2018-12-29] MEDS ORDERED: LIDOCAINE HCL/EPINEPHRINE 1%-EPI 1:100,000 30 ML VIAL INFIL NR (12:30)
[2018-12-29 14:57] LABS: CLARITY URINE CLEAR (CLEAR); COLOR URINE YELLOW (YELLOW); KETONES URINE NEGATIVE (NEGATIVE); LEUKOCYTE ESTERASE URINE TRACE (NEGATIVE); NITRITE URINE NEGATIVE (NEGATIVE); OCCULT BLOOD URINE NEGATIVE (NEGATIVE); PROTEIN URINE TRACE (NEGATIVE); SPECIFIC GRAVITY URINE 1.008 (1.005-1.030)
[2018-12-29 15:15] VITALS: BP 119/83
[2018-12-29 16:00] VITALS: BP 146/79
== END 2018-12-29 17:45 | DRG 312 ==
LOC: ER 12:16 → 5WST 15:34 → EDBEDREQTM 15:38 → EDBEDREQ 15:38 → ENRESERV 21:48
PROVIDERS: ADMIT Internal Medicine; ATTEND Internal Medicine
PROC: 0HBJXZZ Excision of Left Upper Leg Skin, External Approach (ICD-10-PCS; principal; 2018-12-12)
PROC: 3E10X8Z Irrigation of Skin and Mucous Membranes using Irrigating Substance (ICD-10-PCS; 2018-12-12)
PROC: 02HV33Z Insertion of Infusion Device into Superior Vena Cava, Percutaneous Approach (ICD-10-PCS; 2018-12-27)
PROC: B548ZZA Ultrasonography of Superior Vena Cava, Guidance (ICD-10-PCS; 2018-12-27)
PROC: 0JBM0ZZ Excision of Left Upper Leg Subcutaneous Tissue and Fascia, Open Approach (ICD-10-PCS; 2018-12-29)
DX: T87.81 Dehiscence of amputation stump (principal); N17.0 Acute kidney failure with tubular necrosis; E43 Unspecified severe protein-calorie malnutrition; L89.153 Pressure ulcer of sacral region, stage 3; E11.40 Type 2 diabetes mellitus with diabetic neuropathy, unspecified; I82.402 Acute embolism and thrombosis of unspecified deep veins of left lower extremity; D63.8 Anemia in other chronic diseases classified elsewhere; I10 Essential (primary) hypertension; F20.9 Schizophrenia, unspecified; Z89.612 Acquired absence of left leg above knee; E66.01 Morbid (severe) obesity due to excess calories; E83.39 Other disorders of phosphorus metabolism; E83.52 Hypercalcemia; E87.6 Hypokalemia; E87.0 Hyperosmolality and hypernatremia; G89.29 Other chronic pain; E11.621 Type 2 diabetes mellitus with foot ulcer; L97.509 Non-pressure chronic ulcer of other part of unspecified foot with unspecified severity; Z98.891 History of uterine scar from previous surgery; Z79.01 Long term (current) use of anticoagulants; Z82.49 Family history of ischemic heart disease and other diseases of the circulatory system; Z83.3 Family history of diabetes mellitus; Z86.718 Personal history of other venous thrombosis and embolism; Z86.73 Personal history of transient ischemic attack (TIA), and cerebral infarction without residual deficits; Z79.4 Long term (current) use of insulin; E11.52 Type 2 diabetes mellitus with diabetic peripheral angiopathy with gangrene; Z68.41 Body mass index [BMI] 40.0-44.9, adult; Y83.5 Amputation of limb(s) as the cause of abnormal reaction of the patient, or of later complication, without mention of misadventure at the time of the procedure; Y92.89 Other specified places as the place of occurrence of the external cause
CPT/HCPCS: 36415; 36569; 36600; 71045; 73502; 73700; 74018; 76770; 76937; 80048; 80061; 80202; 81400; 81403; 81407; 81479; 82164; 82306; 82330; 82375; 82550; 82607; 82652; 82728; 82746; 82784; 82805; 82962; 83520; 83540; 83550; 83605; 83735; 83970; 84100; 84134; 84145; 84155; 84165; 84443; 84484; 85300; 85303; 85306; 85613; 85651; 85732; 86140; 86147; 86160; 86256; 86334; 87070; 87075; 87077; 87186; 93005; 96361; 96365; 96366; 96368; 97110; 97163; 97530; 99285; C1725; J0690; J0692; J1170; J1580; J1815; J2250; J2405; J2430; J2543; J2704; J2765; J3010; J3370; J3475; J3480; J3490; J7030; J7040; J7050; J7060; J7070; P9047

== ENCOUNTER 2019-02-09 11:45 | Inpatient (IN) | payer MEDICAID ==
[~2019-02-09] VITALS: Ht 170.2 cm; Wt 89.8 kg
[2019-02-09] MEDS ORDERED: ONDANSETRON HCL 4MG/2ML INJ IV STA (11:53)
[2019-02-09] MEDS ORDERED: SODIUM CHLORIDE 0.9% 1,000 ML IV ONE (11:53)
[2019-02-09] MEDS ORDERED: MORPHINE SULFATE 4 MG/ML CPJ (NOT FOR IM USE) IV STA (11:53)
[2019-02-09] MEDS ORDERED: FAMOTIDINE 20MG/2ML VIAL IV ONE (12:00)
[2019-02-09] MEDS ORDERED: ADENOSINE 3 MG/ML 2ML VIAL IV ONE ×4 (12:12→12:15)
[2019-02-09 12:25] LABS: BASOPHILS % 0.5 % (0.0-2.0); EOSINOPHILS % 0.6 % (0.0-5.0); HEMOGLOBIN. 10.5 g/dL (12.0-16.0); LYMPHOCYTES % 34.2 % (20.0-50.0); MEAN CORPUSCULAR HEMOGLOBIN 26.8 pg (28.0-32.0); MEAN PLATELET VOLUME 7.3 fl (7.4-10.4); MONOCYTES % 7.1 % (2.0-8.0); NEUTROPHILS % 57.6 % (40.0-76.0); PLATELET 261 x1000/uL (130-400); RED CELL DISTRIBUTION WIDTH 15.7 % (11.6-14.6)
[2019-02-09 12:30] LABS: CHLORIDE 105 mEq/L (98-107)
[2019-02-09] MEDS ORDERED: AMIODARONE HCL 50MG/ML 9ML VIAL IV ONE (12:30)
[2019-02-09] MEDS ORDERED: AMIODARONE HCL 150 MG in DEXT 5% WATER 100 ML IV ONE (12:30)
[2019-02-09 12:34] LABS: INR 1.7; PARTIAL THROMBOPLASTIN TIME 41.7 sec (23.4-31.0); PROTHROMBIN TIME 16.9 sec (9.1-11.1)
[2019-02-09] MEDS ORDERED: LORAZEPAM 2MG/ML CPJ IV ONE (12:45)
[2019-02-09] MEDS ORDERED: MAGNESIUM 1 G PREMIX 100 ML IV ONE (12:45)
[2019-02-09] MEDS ORDERED: AMIODARONE HCL 150 MG in DEXT 5% WATER 100 ML IV NR (12:45)
[2019-02-09 12:54] LABS: HCG SCREEN NEGATIVE
[2019-02-09] MEDS ORDERED: FUROSEMIDE 20MG/2ML VIAL IVP ONE (13:00)
[2019-02-09] MEDS ORDERED: POTASSIUM CHLORIDE 20MEQ TABLET SR PO ONE (13:00)
[2019-02-09] MEDS ORDERED: AMIODARONE HCL 900 MG in DEXT 5% WATER 500 ML IV PRN (13:00)
[2019-02-09] MEDS ORDERED: LIDOCAINE HCL 1% 20ML VIAL (Pyxis) INJ ONE (13:01)
[2019-02-09 13:21] LABS: T4 FREE >8.0 ng/dL ng/dL (0.76-1.46)
[2019-02-09] MEDS ORDERED: MAGNESIUM 2 G PREMIX 50 ML IV ONE (13:30)
[2019-02-09] MEDS ORDERED: CLONIDINE 0.1MG TABLET PO PRN (16:45)
[2019-02-09] MEDS ORDERED: HYDROMORPHONE HCL/PF 2MG/ML CPJ IV PRN (16:45)
[2019-02-09] MEDS ORDERED: ACETAMINOPHEN 325MG TABLET PO PRN (16:45)
[2019-02-09] MEDS ORDERED: ONDANSETRON HCL 4MG/2ML INJ IV PRN (16:45)
[2019-02-09] MEDS ORDERED: IPRATROPIUM BROMIDE (0.02%) 0.5MG/2.5ML NEB HHN PRN (17:15)
[2019-02-09] MEDS ORDERED: MAGNESIUM 2 G PREMIX 50 ML IV SCH (18:00)
[2019-02-09] MEDS ORDERED: KCL 20MEQ/100ML PREMIX 100 ML IV SCH (18:30)
[2019-02-09 18:32] VITALS: BP 108/60
[2019-02-09] MEDS ORDERED: AMIODARONE HCL 900 MG in DEXT 5% WATER 482 ML IV PRN (20:00)
[2019-02-09] MEDS: MAGNESIUM OXIDE 400MG TABLET PO SCH (20:06)
[2019-02-09] MEDS: METHIMAZOLE 5MG TABLET PO SCH (20:06)
[2019-02-09 20:14] VITALS: BP 108/83
[2019-02-09] MEDS: HYDROCODONE/ACETAMINOPHEN 5/325MG TABLET PO PRN (20:15)
[2019-02-09] MEDS: ENOXAPARIN 100MG/ML SYR SUBCUT SCH (21:39)
[2019-02-09 22:05] VITALS: BP 113/81
[2019-02-10] VITALS (13 sets, daily range): BP systolic 91–139; BP diastolic 33–79
[2019-02-10] MEDS ORDERED: DEXTROSE 50% WATER 50ML SYRINGE IV PRN ×2 (05:45)
[2019-02-10 06:33] LABS: BASOPHILS % 0.3 % (0.0-2.0); EOSINOPHILS % 1.9 % (0.0-5.0); HEMOGLOBIN. 9.4 g/dL (12.0-16.0); LYMPHOCYTES % 37.9 % (20.0-50.0); MEAN CORPUSCULAR HEMOGLOBIN 26.9 pg (28.0-32.0); MEAN CORPUSCULAR VOLUME 82.7 fL (81.0-99.0); MEAN PLATELET VOLUME 7.5 fl (7.4-10.4); NEUTROPHILS % 48.9 % (40.0-76.0); PLATELET 232 x1000/uL (130-400); RED BLOOD CELL COUNT 3.51 mill/uL (4.2-5.4); RED CELL DISTRIBUTION WIDTH 15.9 % (11.6-14.6)
[2019-02-10 06:43] LABS: CHLORIDE 107 mEq/L (98-107)
[2019-02-10] MEDS: BLOOD SUGAR DIAGNOSTIC STRIP TEST SCH ×4 (06:52→20:04)
[2019-02-10] MEDS: INSULIN LISPRO 100 UNITS/ML SUBCUT SCH ×4 (07:20→20:09)
[2019-02-10] MEDS: ENOXAPARIN 100MG/ML SYR SUBCUT SCH ×2 (09:55→20:10)
[2019-02-10] MEDS: MAGNESIUM OXIDE 400MG TABLET PO SCH (10:08)
[2019-02-10] MEDS: METHIMAZOLE 5MG TABLET PO SCH (10:08)
[2019-02-10] MEDS: DILTIAZEM HCL 60MG TABLET PO SCH ×3 (12:00→17:11)
[2019-02-10 13:52] LABS: CLARITY URINE CLEAR (CLEAR); COLOR URINE DARK YELLOW (YELLOW); KETONES URINE TRACE (NEGATIVE); LEUKOCYTE ESTERASE URINE TRACE (NEGATIVE); NITRITE URINE POSITIVE (NEGATIVE); OCCULT BLOOD URINE NEGATIVE (NEGATIVE); PH URINE 5.5 (4.5-8.0); PROTEIN URINE TRACE (NEGATIVE); SPECIFIC GRAVITY URINE 1.027 (1.005-1.030)
[2019-02-10] MEDS: PIPERACILLIN/TAZ 3.375G PREMIX 50 ML IV SCH ×2 (14:09→18:14)
[2019-02-10 14:18] LABS: *AMPHETAMINES SCREEN URINE NEGATIVE (NEGATIVE); *BARBITURATES SCREEN URINE NEGATIVE (NEGATIVE)
[2019-02-10 14:19] LABS: *BENZODIAZEPINES SCREEN URINE NEGATIVE (NEGATIVE); *COCAINE SCREEN URINE NEGATIVE (NEGATIVE); METHADONE URINE SCREEN NEGATIVE (NEGATIVE); PHENCYCLIDINE URINE SCREEN NEGATIVE (NEGATIVE)
[2019-02-10 14:20] LABS: CANNABINOID URINE SCREEN PRESUMTIVE POSITIVE (NEGATIVE); OPIATES URINE SCREEN PRESUMTIVE POSITIVE (NEGATIVE)
[2019-02-10] MEDS ORDERED: ENOXAPARIN 100MG/ML SYR SUBCUT SCH (14:43)
[2019-02-10] MEDS ORDERED: VANCOMYCIN 2,000 MG in DEXT 5% WATER 500 ML IV SCH (15:00)
[2019-02-10] MEDS: IPRATROPIUM BROMIDE (0.02%) 0.5MG/2.5ML NEB HHN SCH ×2 (16:40→20:40)
[2019-02-10] MEDS: NYSTATIN POWDER 15GM TOP SCH (17:07)
[2019-02-10] MEDS: VANCOMYCIN 1 G PREMIX 200 ML IV SCH (23:06)
[2019-02-11] VITALS (10 sets, daily range): BP systolic 91–138; BP diastolic 47–82
[2019-02-11] MEDS: PIPERACILLIN/TAZ 3.375G PREMIX 50 ML IV SCH ×4 (00:38→17:43)
[2019-02-11] MEDS: DILTIAZEM HCL 60MG TABLET PO SCH ×2 (00:39→06:00)
[2019-02-11] MEDS: PROPYLTHIOURACIL 50MG TABLET PO SCH ×4 (01:56→17:43)
[2019-02-11] MEDS: IPRATROPIUM BROMIDE (0.02%) 0.5MG/2.5ML NEB HHN SCH ×3 (02:31→20:28)
[2019-02-11] MEDS ORDERED: ATOR10TA69 PO (03:17)
[2019-02-11] MEDS ORDERED: FOLI-43 PO (03:18)
[2019-02-11] MEDS ORDERED: APIX5TAB PO (03:19)
[2019-02-11] MEDS ORDERED: GABA-529 PO (03:20)
[2019-02-11] MEDS ORDERED: PANT40TA4 PO (03:21)
[2019-02-11] MEDS: BLOOD SUGAR DIAGNOSTIC STRIP TEST SCH ×4 (05:51→20:44)
[2019-02-11 06:01] LABS: BASOPHILS % 0.2 % (0.0-2.0); EOSINOPHILS % 2.8 % (0.0-5.0); HEMOGLOBIN. 8.5 g/dL (12.0-16.0); MEAN CORPUSCULAR HEMOGLOBIN 27.2 pg (28.0-32.0); MEAN CORPUSCULAR VOLUME 83.2 fL (81.0-99.0); MEAN PLATELET VOLUME 7.4 fl (7.4-10.4); MONOCYTES % 10.4 % (2.0-8.0); NEUTROPHILS % 59.6 % (40.0-76.0); PLATELET 205 x1000/uL (130-400); RED BLOOD CELL COUNT 3.13 mill/uL (4.2-5.4); RED CELL DISTRIBUTION WIDTH 16.1 % (11.6-14.6)
[2019-02-11 06:02] LABS: CHLORIDE 104 mEq/L (98-107)
[2019-02-11] MEDS: VANCOMYCIN 1 G PREMIX 200 ML IV SCH ×3 (06:18→15:20)
[2019-02-11] MEDS: INSULIN LISPRO 100 UNITS/ML SUBCUT SCH ×4 (07:20→20:44)
[2019-02-11] MEDS: ENOXAPARIN 100MG/ML SYR SUBCUT SCH ×2 (08:02→20:44)
[2019-02-11] MEDS: MAGNESIUM OXIDE 400MG TABLET PO SCH (08:02)
[2019-02-11] MEDS: DOCUSATE SODIUM 100MG CAPSULE PO PRN (08:02)
[2019-02-11] MEDS: NYSTATIN POWDER 15GM TOP SCH ×3 (08:32→17:43)
[2019-02-11 11:36] LABS: BG BASE EXCESS 1.2 mmol/L (-2.0-2.0); BG DEOXYHEMOGLOBIN 6.1 % (0.0-5.0); BG METHEMOGLOBIN 0.1 % (0.0-1.5); BG OXYGEN SATURATION 93.9 % (92.0-98.5); BG OXYHEMOGLOBIN 93.8 % (94.0-97.0); BG PCO2 36.6 mmHg (35.0-45.0); BG PH 7.452 (7.350-7.450); BG PO2 74.5 mmHg (75.0-100.0); BG SAMPLE SITE RIGHT BRACHIAL; BG TOTAL HEMOGLOBIN 11.5 g/dL (12.0-18.0); BG VENT MODE ROOM AIR
[2019-02-11] MEDS: DILTIAZEM HCL 30MG TABLET PO SCH ×2 (12:00→17:43)
[2019-02-11] MEDS ORDERED: MAGNESIUM 2 G PREMIX 50 ML IV NR (14:00)
[2019-02-11] MEDS: CALAMINE LOTION 120ML TOP SCH (22:45)
[2019-02-12] VITALS (12 sets, daily range): BP systolic 70–134; BP diastolic 41–79
[2019-02-12] MEDS: PIPERACILLIN/TAZ 3.375G PREMIX 50 ML IV SCH ×4 (00:38→18:56)
[2019-02-12] MEDS: PROPYLTHIOURACIL 50MG TABLET PO SCH ×5 (00:40→18:00)
[2019-02-12] MEDS: DILTIAZEM HCL 30MG TABLET PO SCH ×5 (00:47→18:00)
[2019-02-12] MEDS: IPRATROPIUM BROMIDE (0.02%) 0.5MG/2.5ML NEB HHN SCH ×4 (01:58→21:22)
[2019-02-12] MEDS ORDERED: VANCOMYCIN 750 MG PREMIX 150 ML IV SCH (05:00)
[2019-02-12] MEDS: BLOOD SUGAR DIAGNOSTIC STRIP TEST SCH ×4 (06:11→20:45)
[2019-02-12 06:39] LABS: BASOPHILS % 0.1 % (0.0-2.0); EOSINOPHILS % 1.7 % (0.0-5.0); HEMATOCRIT. 29.2 % (36.0-48.0); HEMOGLOBIN. 9.5 g/dL (12.0-16.0); LYMPHOCYTES % 29.8 % (20.0-50.0); MEAN CORPUSCULAR HEMOGLOBIN 26.6 pg (28.0-32.0); MEAN CORPUSCULAR VOLUME 81.9 fL (81.0-99.0); MEAN PLATELET VOLUME 7.3 fl (7.4-10.4); MONOCYTES % 10.7 % (2.0-8.0); NEUTROPHILS % 57.7 % (40.0-76.0); PLATELET 208 x1000/uL (130-400); RED BLOOD CELL COUNT 3.57 mill/uL (4.2-5.4); RED CELL DISTRIBUTION WIDTH 15.9 % (11.6-14.6)
[2019-02-12 07:03] LABS: CHLORIDE 107 mEq/L (98-107)
[2019-02-12] MEDS: INSULIN LISPRO 100 UNITS/ML SUBCUT SCH ×4 (07:20→20:45)
[2019-02-12] MEDS: MAGNESIUM OXIDE 400MG TABLET PO SCH (09:00)
[2019-02-12] MEDS: ENOXAPARIN 100MG/ML SYR SUBCUT SCH ×2 (09:24→21:07)
[2019-02-12] MEDS: CALAMINE LOTION 120ML TOP SCH ×2 (09:24→21:07)
[2019-02-12] MEDS: NYSTATIN POWDER 15GM TOP SCH ×3 (09:28→17:00)
[2019-02-12] MEDS ORDERED: NA PHOS,M-B/NA PHOS,DI-BA ENEMA 118ML PR NR (17:30)
[2019-02-12] MEDS: POLYETHYLENE GLYCOL 3350 (17GM) 1 DOSE PACK PO SCH (17:30)
[2019-02-12] MEDS: VANCOMYCIN 750 MG PREMIX 150 ML IV SCH (18:56)
[2019-02-12] MEDS ORDERED: NA PHOS,M-B/NA PHOS,DI-BA ENEMA 118ML PR PRN (21:00)
[2019-02-12] MEDS: LACTULOSE 20G/30ML UDC PO SCH (21:00)
[2019-02-13] VITALS (11 sets, daily range): BP systolic 94–165; BP diastolic 43–92
[2019-02-13] MEDS: PIPERACILLIN/TAZ 3.375G PREMIX 50 ML IV SCH ×4 (00:09→17:34)
[2019-02-13] MEDS: BLOOD SUGAR DIAGNOSTIC STRIP TEST SCH ×4 (05:49→21:00)
[2019-02-13] MEDS: VANCOMYCIN 750 MG PREMIX 150 ML IV SCH ×2 (06:13→18:59)
[2019-02-13] MEDS: DILTIAZEM HCL 30MG TABLET PO SCH ×4 (06:13→17:34)
[2019-02-13] MEDS: PROPYLTHIOURACIL 50MG TABLET PO SCH ×4 (06:13→17:35)
[2019-02-13] MEDS: INSULIN LISPRO 100 UNITS/ML SUBCUT SCH ×4 (06:46→21:00)
[2019-02-13] MEDS: MAGNESIUM OXIDE 400MG TABLET PO SCH (08:06)
[2019-02-13] MEDS: ENOXAPARIN 100MG/ML SYR SUBCUT SCH ×2 (08:06→21:00)
[2019-02-13] MEDS: DOCUSATE SODIUM 100MG CAPSULE PO PRN (08:06)
[2019-02-13] MEDS: POLYETHYLENE GLYCOL 3350 (17GM) 1 DOSE PACK PO SCH (08:06)
[2019-02-13] MEDS: NYSTATIN POWDER 15GM TOP SCH ×3 (08:07→17:35)
[2019-02-13] MEDS: CALAMINE LOTION 120ML TOP SCH ×2 (08:07→21:17)
[2019-02-13] MEDS: IPRATROPIUM BROMIDE (0.02%) 0.5MG/2.5ML NEB HHN SCH ×3 (09:22→21:14)
[2019-02-13] MEDS ORDERED: BISACODYL 10MG SUPP PR PRN (15:30)
[2019-02-13] MEDS: LACTULOSE 20G/30ML UDC PO SCH (21:14)
[2019-02-14] VITALS (10 sets, daily range): BP systolic 53–135; BP diastolic 35–89
[2019-02-14] MEDS: PIPERACILLIN/TAZ 3.375G PREMIX 50 ML IV SCH ×4 (00:36→21:29)
[2019-02-14] MEDS: PROPYLTHIOURACIL 50MG TABLET PO SCH ×3 (00:36→11:33)
[2019-02-14] MEDS: DILTIAZEM HCL 30MG TABLET PO SCH ×4 (00:36→18:00)
[2019-02-14] MEDS: HYDROCODONE/ACETAMINOPHEN 5/325MG TABLET PO PRN (01:36)
[2019-02-14] MEDS: IPRATROPIUM BROMIDE (0.02%) 0.5MG/2.5ML NEB HHN SCH ×3 (02:00→21:47)
[2019-02-14] MEDS: VANCOMYCIN 750 MG PREMIX 150 ML IV SCH ×2 (05:32→21:29)
[2019-02-14] MEDS: BLOOD SUGAR DIAGNOSTIC STRIP TEST SCH ×4 (06:50→21:15)
[2019-02-14] MEDS: INSULIN LISPRO 100 UNITS/ML SUBCUT SCH ×4 (07:20→21:00)
[2019-02-14 07:49] LABS: CHLORIDE 102 mEq/L (98-107)
[2019-02-14 08:09] LABS: PHOSPHORUS 3.5 mg/dL (2.5-4.9)
[2019-02-14 08:12] LABS: T4 FREE 3.48 ng/dL (0.76-1.46)
[2019-02-14] MEDS: MAGNESIUM OXIDE 400MG TABLET PO SCH (08:26)
[2019-02-14] MEDS: ENOXAPARIN 100MG/ML SYR SUBCUT SCH (08:26)
[2019-02-14] MEDS: POLYETHYLENE GLYCOL 3350 (17GM) 1 DOSE PACK PO SCH (08:26)
[2019-02-14] MEDS: NYSTATIN POWDER 15GM TOP SCH ×2 (08:55→17:00)
[2019-02-14] MEDS: CALAMINE LOTION 120ML TOP SCH ×2 (08:56→21:32)
[2019-02-14] MEDS ORDERED: POTASSIUM CHLORIDE INJ 40 MEQ in DEXT 5% WATER 250 ML IV NR (10:00)
[2019-02-14 11:24] LABS: BASOPHILS % 0.3 % (0.0-2.0); EOSINOPHILS % 2.8 % (0.0-5.0); HEMATOCRIT. 25.2 % (36.0-48.0); HEMOGLOBIN. 8.3 g/dL (12.0-16.0); LYMPHOCYTES % 28.5 % (20.0-50.0); MEAN CORPUSCULAR HEMOGLOBIN 27.3 pg (28.0-32.0); MEAN CORPUSCULAR VOLUME 82.9 fL (81.0-99.0); MEAN PLATELET VOLUME 7.6 fl (7.4-10.4); MONOCYTES % 10.1 % (2.0-8.0); NEUTROPHILS % 58.3 % (40.0-76.0); PLATELET 179 x1000/uL (130-400); RED BLOOD CELL COUNT 3.04 mill/uL (4.2-5.4); RED CELL DISTRIBUTION WIDTH 16.2 % (11.6-14.6)
[2019-02-14] MEDS ORDERED: DEXTROSE 50% WATER 50ML SYRINGE IV PRN (14:15)
[2019-02-14] MEDS ORDERED: CLONIDINE 0.1MG TABLET PO PRN (14:30)
[2019-02-14] MEDS ORDERED: DOCUSATE SODIUM 100MG CAPSULE PO PRN (14:30)
[2019-02-14] MEDS ORDERED: PIPERACILLIN/TAZ 3.375G PREMIX 50 ML IV SCH (16:00)
[2019-02-14] MEDS ORDERED: BLOOD SUGAR DIAGNOSTIC STRIP TEST SCH (17:20)
[2019-02-14] MEDS ORDERED: VANCOMYCIN 750 MG PREMIX 150 ML IV SCH (18:00)
[2019-02-14] MEDS ORDERED: BACITRACIN 50,000 UNITS/VIAL ONE (18:42)
[2019-02-14] MEDS ORDERED: FENTANYL CITRATE/PF 50MCG/ML 2ML VIAL ONE ×2 (18:42→19:00)
[2019-02-14] MEDS ORDERED: SUCCINYLCHOLINE CHLORIDE 200MG/10ML IV ONE (18:42)
[2019-02-14] MEDS ORDERED: MIDAZOLAM HCL 2 MG/2 ML VIAL ONE (18:42)
[2019-02-14] MEDS ORDERED: VANCOMYCIN HCL 500 MG/VIAL ONE (18:42)
[2019-02-14] MEDS ORDERED: PROPOFOL 200MG/20ML VIAL IV ONE (18:42)
[2019-02-14] MEDS ORDERED: ONDANSETRON HCL 4MG/2ML INJ ONE (18:42)
[2019-02-14] MEDS ORDERED: METOCLOPRAMIDE HCL 10MG/2ML VIAL ONE (18:42)
[2019-02-14] MEDS ORDERED: GLYCOPYRROLATE 0.2 MG/ML 2ML VIAL ONE (18:42)
[2019-02-14] MEDS ORDERED: SODIUM CHLORIDE 0.9% 100 ML IV ONE (19:30)
[2019-02-14] MEDS ORDERED: HYDROMORPHONE HCL/PF 2MG/ML CPJ IV PRN (19:30)
[2019-02-14] MEDS ORDERED: ONDANSETRON HCL 4MG/2ML INJ IV PRN (19:30)
[2019-02-14] MEDS ORDERED: LACTULOSE 20G/30ML UDC PO PRN (21:00)
[2019-02-14] MEDS: ENOXAPARIN 30MG/0.3ML SYR SUBCUT SCH (21:31)
[2019-02-15] VITALS: BP 121/70
[2019-02-15] MEDS: DILTIAZEM HCL 30MG TABLET PO SCH ×5 (01:26→23:44)
[2019-02-15] MEDS: IPRATROPIUM BROMIDE (0.02%) 0.5MG/2.5ML NEB HHN SCH ×4 (02:40→20:57)
[2019-02-15 04:00] VITALS: BP 106/60
[2019-02-15] MEDS: PIPERACILLIN/TAZ 3.375G PREMIX 50 ML IV SCH ×4 (06:13→23:43)
[2019-02-15 06:19] LABS: BASOPHILS % 0.1 % (0.0-2.0); EOSINOPHILS % 2.8 % (0.0-5.0); HEMATOCRIT. 25.6 % (36.0-48.0); HEMOGLOBIN. 8.3 g/dL (12.0-16.0); LYMPHOCYTES % 28.2 % (20.0-50.0); MEAN CORPUSCULAR VOLUME 83.3 fL (81.0-99.0); MEAN PLATELET VOLUME 7.6 fl (7.4-10.4); MONOCYTES % 8.1 % (2.0-8.0); NEUTROPHILS % 60.8 % (40.0-76.0); PLATELET 187 x1000/uL (130-400); RED BLOOD CELL COUNT 3.07 mill/uL (4.2-5.4)
[2019-02-15 06:34] LABS: CHLORIDE 106 mEq/L (98-107)
[2019-02-15] MEDS: BLOOD SUGAR DIAGNOSTIC STRIP TEST SCH ×2 (06:46→18:16)
[2019-02-15] MEDS: INSULIN LISPRO 100 UNITS/ML SUBCUT SCH (07:50)
[2019-02-15 08:00] VITALS: BP 126/73
[2019-02-15] MEDS: MAGNESIUM OXIDE 400MG TABLET PO SCH (09:49)
[2019-02-15] MEDS: ENOXAPARIN 30MG/0.3ML SYR SUBCUT SCH ×2 (09:49→20:39)
[2019-02-15] MEDS: NYSTATIN POWDER 15GM TOP SCH ×3 (09:50→17:33)
[2019-02-15] MEDS: VANCOMYCIN 750 MG PREMIX 150 ML IV SCH ×2 (09:51→23:43)
[2019-02-15] MEDS: CALAMINE LOTION 120ML TOP SCH ×2 (09:52→20:40)
[2019-02-15 12:00] VITALS: BP 108/79
[2019-02-15] MEDS ORDERED: INSULIN LISPRO 100 UNITS/ML SUBCUT SCH (12:20)
[2019-02-15] MEDS: POLYETHYLENE GLYCOL 3350 (17GM) 1 DOSE PACK PO SCH (12:59)
[2019-02-15] MEDS: PROPYLTHIOURACIL 50MG TABLET PO SCH ×4 (13:51→23:44)
[2019-02-15] MEDS ORDERED: POTASSIUM CHLORIDE 20MEQ/PACKET PO SCH (14:30)
[2019-02-15 16:00] VITALS: BP 125/66
[2019-02-15] MEDS: INSULIN LISPRO (LOW DOSE) 100 UNITS/ML SUBCUT SCH (17:20)
[2019-02-15 20:00] VITALS: BP 102/42
[2019-02-16] VITALS: BP 93/48
[2019-02-16] MEDS: IPRATROPIUM BROMIDE (0.02%) 0.5MG/2.5ML NEB HHN SCH ×4 (01:13→20:43)
[2019-02-16 04:00] VITALS: BP 108/60
[2019-02-16] MEDS: PROPYLTHIOURACIL 50MG TABLET PO SCH ×5 (04:00→21:30)
[2019-02-16] MEDS: DILTIAZEM HCL 30MG TABLET PO SCH ×3 (05:33→17:24)
[2019-02-16 06:42] LABS: CHLORIDE 106 mEq/L (98-107)
[2019-02-16 06:50] LABS: BASOPHILS % 0.3 % (0.0-2.0); EOSINOPHILS % 2.8 % (0.0-5.0); HEMATOCRIT. 24.8 % (36.0-48.0); LYMPHOCYTES % 28.7 % (20.0-50.0); MEAN CORPUSCULAR HEMOGLOBIN 26.9 pg (28.0-32.0); MEAN PLATELET VOLUME 7.8 fl (7.4-10.4); MONOCYTES % 7.9 % (2.0-8.0); NEUTROPHILS % 60.3 % (40.0-76.0); PLATELET 197 x1000/uL (130-400); RED BLOOD CELL COUNT 2.99 mill/uL (4.2-5.4); RED CELL DISTRIBUTION WIDTH 16.2 % (11.6-14.6)
[2019-02-16] MEDS: BLOOD SUGAR DIAGNOSTIC STRIP TEST SCH ×2 (06:54→18:15)
[2019-02-16] MEDS: INSULIN LISPRO (LOW DOSE) 100 UNITS/ML SUBCUT SCH ×3 (06:55→17:20)
[2019-02-16] MEDS: PIPERACILLIN/TAZ 3.375G PREMIX 50 ML IV SCH ×4 (06:58→21:31)
[2019-02-16] MEDS: POLYETHYLENE GLYCOL 3350 (17GM) 1 DOSE PACK PO SCH (08:33)
[2019-02-16] MEDS: MAGNESIUM OXIDE 400MG TABLET PO SCH (08:33)
[2019-02-16] MEDS ORDERED: PROPOFOL 200MG/20ML VIAL IV ONE ×2 (09:09→09:11)
[2019-02-16] MEDS ORDERED: SUCCINYLCHOLINE CHLORIDE 200MG/10ML IV ONE (09:11)
[2019-02-16] MEDS ORDERED: TETRACAINE/BENZOCAINE/BUTAMBEN 20 GM SPRAY MM ONE (09:28)
[2019-02-16] MEDS ORDERED: LIDOCAINE HCL 2% JELLY 5ML ONE (09:28)
[2019-02-16] MEDS ORDERED: HYDROMORPHONE HCL/PF 2MG/ML CPJ IV PRN (10:00)
[2019-02-16] MEDS ORDERED: LABETALOL 5MG/ML SYR 20 MG/4 ML SYRINGE IV PRN (10:00)
[2019-02-16] MEDS ORDERED: MEPERIDINE HCL/PF 25MG/ML CPJ IV PRN (10:00)
[2019-02-16] MEDS ORDERED: ONDANSETRON HCL 4MG/2ML INJ IV PRN (10:00)
[2019-02-16] MEDS: ENOXAPARIN 30MG/0.3ML SYR SUBCUT SCH ×2 (11:18→21:31)
[2019-02-16] MEDS: VANCOMYCIN 750 MG PREMIX 150 ML IV SCH ×2 (11:19→21:31)
[2019-02-16] MEDS: NYSTATIN POWDER 15GM TOP SCH ×3 (11:19→16:41)
[2019-02-16] MEDS: CALAMINE LOTION 120ML TOP SCH ×2 (11:19→21:32)
[2019-02-16] MEDS: HYDROCODONE/ACETAMINOPHEN 5/325MG TABLET PO PRN (13:01)
[2019-02-16] MEDS: ONDANSETRON HCL 4MG/2ML INJ IV PRN (13:08)
[2019-02-16 16:00] VITALS: BP 103/53
[2019-02-16 20:00] VITALS: BP 121/41
[2019-02-17] VITALS (7 sets, daily range): BP systolic 70–128; BP diastolic 39–103
[2019-02-17] MEDS: DILTIAZEM HCL 30MG TABLET PO SCH ×3 (01:02→22:40)
[2019-02-17] MEDS: PROPYLTHIOURACIL 50MG TABLET PO SCH ×8 (01:04→22:38)
[2019-02-17] MEDS: IPRATROPIUM BROMIDE (0.02%) 0.5MG/2.5ML NEB HHN SCH ×4 (02:16→20:55)
[2019-02-17] MEDS: PIPERACILLIN/TAZ 3.375G PREMIX 50 ML IV SCH ×4 (04:42→22:38)
[2019-02-17] MEDS: INSULIN LISPRO (LOW DOSE) 100 UNITS/ML SUBCUT SCH ×3 (06:10→17:20)
[2019-02-17] MEDS: BLOOD SUGAR DIAGNOSTIC STRIP TEST SCH ×2 (06:10→17:20)
[2019-02-17 07:17] LABS: BASOPHILS % 0.4 % (0.0-2.0); EOSINOPHILS % 3.3 % (0.0-5.0); HEMATOCRIT. 24.2 % (36.0-48.0); HEMOGLOBIN. 7.8 g/dL (12.0-16.0); LYMPHOCYTES % 32.1 % (20.0-50.0); MEAN CORPUSCULAR HEMOGLOBIN 26.8 pg (28.0-32.0); MEAN CORPUSCULAR VOLUME 83.1 fL (81.0-99.0); MEAN PLATELET VOLUME 7.9 fl (7.4-10.4); MONOCYTES % 8.8 % (2.0-8.0); NEUTROPHILS % 55.4 % (40.0-76.0); PLATELET 216 x1000/uL (130-400); RED BLOOD CELL COUNT 2.91 mill/uL (4.2-5.4); RED CELL DISTRIBUTION WIDTH 16.2 % (11.6-14.6)
[2019-02-17 07:21] LABS: CHLORIDE 111 mEq/L (98-107)
[2019-02-17] MEDS: ENOXAPARIN 30MG/0.3ML SYR SUBCUT SCH ×2 (09:00→21:00)
[2019-02-17] MEDS: POLYETHYLENE GLYCOL 3350 (17GM) 1 DOSE PACK PO SCH (09:00)
[2019-02-17] MEDS: CALAMINE LOTION 120ML TOP SCH ×2 (10:33→22:53)
[2019-02-17] MEDS: NYSTATIN POWDER 15GM TOP SCH ×3 (10:33→16:30)
[2019-02-17] MEDS: VANCOMYCIN 750 MG PREMIX 150 ML IV SCH ×2 (10:34→22:38)
[2019-02-17] MEDS: MAGNESIUM OXIDE 400MG TABLET PO SCH (10:40)
[2019-02-17] MEDS: POTASSIUM CHLORIDE 20MEQ/PACKET PO SCH ×2 (12:45→17:23)
[2019-02-17] MEDS: HYDROCODONE/ACETAMINOPHEN 5/325MG TABLET PO PRN (13:43)
[2019-02-18] MEDS: HYDROCODONE/ACETAMINOPHEN 5/325MG TABLET PO PRN (01:17)
[2019-02-18] MEDS: IPRATROPIUM BROMIDE (0.02%) 0.5MG/2.5ML NEB HHN SCH ×4 (01:59→21:07)
[2019-02-18] MEDS: PROPYLTHIOURACIL 50MG TABLET PO SCH ×6 (03:10→21:14)
[2019-02-18 03:59] VITALS: BP 93/42
[2019-02-18] MEDS: PIPERACILLIN/TAZ 3.375G PREMIX 50 ML IV SCH ×4 (04:21→21:14)
[2019-02-18] MEDS: INSULIN LISPRO (LOW DOSE) 100 UNITS/ML SUBCUT SCH ×4 (06:45→21:15)
[2019-02-18] MEDS: BLOOD SUGAR DIAGNOSTIC STRIP TEST SCH ×3 (06:54→21:15)
[2019-02-18 07:16] LABS: BASOPHILS % 0.5 % (0.0-2.0); EOSINOPHILS % 3.1 % (0.0-5.0); HEMATOCRIT. 24.6 % (36.0-48.0); HEMOGLOBIN. 8.1 g/dL (12.0-16.0); MEAN CORPUSCULAR HEMOGLOBIN 27.5 pg (28.0-32.0); MEAN CORPUSCULAR VOLUME 83.4 fL (81.0-99.0); MEAN PLATELET VOLUME 7.3 fl (7.4-10.4); MONOCYTES % 7.3 % (2.0-8.0); NEUTROPHILS % 55.1 % (40.0-76.0); PLATELET 262 x1000/uL (130-400); RED BLOOD CELL COUNT 2.95 mill/uL (4.2-5.4); RED CELL DISTRIBUTION WIDTH 16.2 % (11.6-14.6)
[2019-02-18 07:30] LABS: CHLORIDE 108 mEq/L (98-107)
[2019-02-18 07:57] VITALS: BP 84/62
[2019-02-18] MEDS: DILTIAZEM HCL 30MG TABLET PO SCH ×2 (09:00→21:00)
[2019-02-18] MEDS: POLYETHYLENE GLYCOL 3350 (17GM) 1 DOSE PACK PO SCH (09:00)
[2019-02-18] MEDS: ENOXAPARIN 30MG/0.3ML SYR SUBCUT SCH ×2 (09:29→21:15)
[2019-02-18] MEDS: MAGNESIUM OXIDE 400MG TABLET PO SCH (09:29)
[2019-02-18] MEDS: VANCOMYCIN 750 MG PREMIX 150 ML IV SCH ×2 (09:29→21:14)
[2019-02-18] MEDS: CALAMINE LOTION 120ML TOP SCH ×2 (09:35→21:16)
[2019-02-18] MEDS: NYSTATIN POWDER 15GM TOP SCH ×3 (09:35→17:00)
[2019-02-18] MEDS: ACETAMINOPHEN 325MG TABLET PO PRN (09:45)
[2019-02-18 12:09] VITALS: BP 70/45
[2019-02-18 16:42] VITALS: BP 109/48
[2019-02-18 19:57] VITALS: BP 100/42
[2019-02-19] VITALS: BP 97/59
[2019-02-19] MEDS: PROPYLTHIOURACIL 50MG TABLET PO SCH ×7 (00:16→23:56)
[2019-02-19] MEDS: IPRATROPIUM BROMIDE (0.02%) 0.5MG/2.5ML NEB HHN SCH ×4 (01:55→21:25)
[2019-02-19 04:00] VITALS: BP 98/43
[2019-02-19] MEDS: PIPERACILLIN/TAZ 3.375G PREMIX 50 ML IV SCH ×4 (05:46→21:01)
[2019-02-19] MEDS: ENOXAPARIN 30MG/0.3ML SYR SUBCUT SCH ×2 (09:00→20:44)
[2019-02-19] MEDS: POLYETHYLENE GLYCOL 3350 (17GM) 1 DOSE PACK PO SCH (09:00)
[2019-02-19] MEDS: DILTIAZEM HCL 30MG TABLET PO SCH ×2 (09:00→20:46)
[2019-02-19 09:11] VITALS: BP 102/50
[2019-02-19] MEDS: VANCOMYCIN 750 MG PREMIX 150 ML IV SCH ×2 (10:06→21:01)
[2019-02-19] MEDS: MAGNESIUM OXIDE 400MG TABLET PO SCH (10:07)
[2019-02-19] MEDS: NYSTATIN POWDER 15GM TOP SCH ×3 (10:09→16:49)
[2019-02-19] MEDS: CALAMINE LOTION 120ML TOP SCH ×2 (10:09→20:45)
[2019-02-19] MEDS: ONDANSETRON HCL 4MG/2ML INJ IV PRN (10:29)
[2019-02-19] MEDS: INSULIN LISPRO (LOW DOSE) 100 UNITS/ML SUBCUT SCH ×2 (12:20→17:20)
[2019-02-19 12:53] VITALS: BP 106/52
[2019-02-19] MEDS ORDERED: ERGOCALCIFEROL 50000UNITS CAPSULE PO SCH (15:00)
[2019-02-19 16:56] VITALS: BP 105/55
[2019-02-19] MEDS: BLOOD SUGAR DIAGNOSTIC STRIP TEST SCH (17:20)
[2019-02-19 19:59] VITALS: BP 107/46
[2019-02-20 00:07] VITALS: BP 108/57
[2019-02-20] MEDS: IPRATROPIUM BROMIDE (0.02%) 0.5MG/2.5ML NEB HHN SCH (01:27)
[2019-02-20] MEDS: PROPYLTHIOURACIL 50MG TABLET PO SCH ×5 (04:03→20:54)
[2019-02-20] MEDS: PIPERACILLIN/TAZ 3.375G PREMIX 50 ML IV SCH ×4 (04:03→21:00)
[2019-02-20 04:35] VITALS: BP 112/69
[2019-02-20] MEDS: BLOOD SUGAR DIAGNOSTIC STRIP TEST SCH ×2 (06:40→17:28)
[2019-02-20] MEDS: INSULIN LISPRO (LOW DOSE) 100 UNITS/ML SUBCUT SCH ×3 (06:41→17:20)
[2019-02-20] MEDS: ACETAMINOPHEN 325MG TABLET PO PRN (08:36)
[2019-02-20] MEDS: MAGNESIUM OXIDE 400MG TABLET PO SCH (08:37)
[2019-02-20] MEDS: CALAMINE LOTION 120ML TOP SCH ×2 (08:38→21:00)
[2019-02-20] MEDS: POLYETHYLENE GLYCOL 3350 (17GM) 1 DOSE PACK PO SCH (08:38)
[2019-02-20] MEDS: ENOXAPARIN 30MG/0.3ML SYR SUBCUT SCH ×2 (08:38→20:59)
[2019-02-20] MEDS: NYSTATIN POWDER 15GM TOP SCH ×2 (08:38→13:00)
[2019-02-20] MEDS: DILTIAZEM HCL 30MG TABLET PO SCH ×2 (08:39→20:45)
[2019-02-20] MEDS: ONDANSETRON HCL 4MG/2ML INJ IV PRN ×2 (08:52→21:04)
[2019-02-20 09:04] VITALS: BP 107/47
[2019-02-20] MEDS: VANCOMYCIN 750 MG PREMIX 150 ML IV SCH ×2 (10:09→21:00)
[2019-02-20 12:37] VITALS: BP 109/64
[2019-02-20 16:33] VITALS: BP 128/68
[2019-02-20 20:02] VITALS: BP 108/47
[2019-02-21] VITALS (8 sets, daily range): BP systolic 105–118; BP diastolic 32–72
[2019-02-21] MEDS: PROPYLTHIOURACIL 50MG TABLET PO SCH ×6 (00:14→20:39)
[2019-02-21] MEDS: PIPERACILLIN/TAZ 3.375G PREMIX 50 ML IV SCH ×4 (04:48→21:27)
[2019-02-21] MEDS: BLOOD SUGAR DIAGNOSTIC STRIP TEST SCH ×2 (06:20→17:40)
[2019-02-21] MEDS: INSULIN LISPRO (LOW DOSE) 100 UNITS/ML SUBCUT SCH ×3 (06:20→17:40)
[2019-02-21] MEDS: DILTIAZEM HCL 30MG TABLET PO SCH ×2 (09:00→20:39)
[2019-02-21] MEDS: POLYETHYLENE GLYCOL 3350 (17GM) 1 DOSE PACK PO SCH (09:33)
[2019-02-21] MEDS: ENOXAPARIN 30MG/0.3ML SYR SUBCUT SCH ×2 (09:34→20:38)
[2019-02-21] MEDS: MAGNESIUM OXIDE 400MG TABLET PO SCH (09:34)
[2019-02-21] MEDS: CALAMINE LOTION 120ML TOP SCH ×2 (10:03→20:39)
[2019-02-21] MEDS: VANCOMYCIN 750 MG PREMIX 150 ML IV SCH ×2 (12:11→21:27)
[2019-02-21] MEDS: ACETAMINOPHEN 325MG TABLET PO PRN (12:59)
[2019-02-22] VITALS: BP 101/48
[2019-02-22] MEDS: PROPYLTHIOURACIL 50MG TABLET PO SCH ×5 (00:08→12:00)
[2019-02-22] MEDS: DEXTROSE 50% WATER 50ML SYRINGE IV PRN (05:41)
[2019-02-22 06:03] LABS: HEMOGLOBIN. 7.5 g/dL (12.0-16.0); MEAN CORPUSCULAR HEMOGLOBIN 28.1 pg (28.0-32.0); MEAN CORPUSCULAR VOLUME 82.3 fL (81.0-99.0); PLATELET 429 x1000/uL (130-400); RED BLOOD CELL COUNT 2.68 mill/uL (4.2-5.4); RED CELL DISTRIBUTION WIDTH 16.6 % (11.6-14.6)
[2019-02-22 06:23] LABS: CHLORIDE 110 mEq/L (98-107)
[2019-02-22 06:28] LABS: PHOSPHORUS 2.8 mg/dL (2.5-4.9)
[2019-02-22] MEDS: INSULIN LISPRO (LOW DOSE) 100 UNITS/ML SUBCUT SCH ×3 (07:40→17:40)
[2019-02-22 08:00] VITALS: BP 101/45
[2019-02-22] MEDS: BLOOD SUGAR DIAGNOSTIC STRIP TEST SCH ×2 (08:14→17:40)
[2019-02-22] MEDS: DILTIAZEM HCL 30MG TABLET PO SCH ×2 (09:00→20:55)
[2019-02-22] MEDS: ENOXAPARIN 30MG/0.3ML SYR SUBCUT SCH ×2 (09:12→20:55)
[2019-02-22] MEDS: MAGNESIUM OXIDE 400MG TABLET PO SCH (09:12)
[2019-02-22] MEDS: POLYETHYLENE GLYCOL 3350 (17GM) 1 DOSE PACK PO SCH (09:12)
[2019-02-22] MEDS: CALAMINE LOTION 120ML TOP SCH ×2 (09:13→20:56)
[2019-02-22] MEDS ORDERED: POTASSIUM CHLORIDE 20MEQ TABLET SR PO NR (10:58)
[2019-02-22 12:00] VITALS: BP 113/46
[2019-02-22] MEDS: VANCOMYCIN 750 MG PREMIX 150 ML IV SCH ×2 (12:26→20:54)
[2019-02-22] MEDS: METHIMAZOLE 10MG TABLET PO SCH ×2 (14:41→20:55)
[2019-02-22 15:27] LABS: PLATELET ESTIMATE INCREASED
[2019-02-22 16:00] VITALS: BP 123/51
[2019-02-22 20:00] VITALS: BP 106/64
[2019-02-23] VITALS: BP 121/70
[2019-02-23 04:00] VITALS: BP_SYST 101; BP_SYST 133; BP_DIAS 50; BP_DIAS 74
[2019-02-23] MEDS: METHIMAZOLE 10MG TABLET PO SCH ×3 (06:14→21:16)
[2019-02-23] MEDS: DEXTROSE 50% WATER 50ML SYRINGE IV PRN (06:15)
[2019-02-23 06:39] LABS: HEMATOCRIT. 24.6 % (36.0-48.0); HEMOGLOBIN. 8.1 g/dL (12.0-16.0); MEAN CORPUSCULAR HEMOGLOBIN 27.5 pg (28.0-32.0); MEAN CORPUSCULAR VOLUME 83.5 fL (81.0-99.0); PLATELET 455 x1000/uL (130-400); RED BLOOD CELL COUNT 2.95 mill/uL (4.2-5.4); RED CELL DISTRIBUTION WIDTH 17.5 % (11.6-14.6)
[2019-02-23 06:44] LABS: CHLORIDE 112 mEq/L (98-107)
[2019-02-23] MEDS: BLOOD SUGAR DIAGNOSTIC STRIP TEST SCH ×2 (07:17→17:40)
[2019-02-23] MEDS: INSULIN LISPRO (LOW DOSE) 100 UNITS/ML SUBCUT SCH ×3 (07:40→17:40)
[2019-02-23 08:00] VITALS: BP 105/55
[2019-02-23] MEDS: DILTIAZEM HCL 30MG TABLET PO SCH ×2 (08:38→21:16)
[2019-02-23 10:26] LABS: PLATELET ESTIMATE INCREASED
[2019-02-23] MEDS: VANCOMYCIN 750 MG PREMIX 150 ML IV SCH ×2 (10:32→21:15)
[2019-02-23] MEDS: CALAMINE LOTION 120ML TOP SCH ×2 (10:32→21:18)
[2019-02-23] MEDS: MAGNESIUM OXIDE 400MG TABLET PO SCH (10:32)
[2019-02-23] MEDS: ENOXAPARIN 30MG/0.3ML SYR SUBCUT SCH ×2 (10:32→21:18)
[2019-02-23] MEDS: POLYETHYLENE GLYCOL 3350 (17GM) 1 DOSE PACK PO SCH (10:32)
[2019-02-23 12:00] VITALS: BP 111/51
[2019-02-23] MEDS ORDERED: POTASSIUM CHLORIDE 20MEQ TABLET SR PO NR (12:30)
[2019-02-23 20:00] VITALS: BP 115/60
[2019-02-24] VITALS (7 sets, daily range): BP systolic 100–123; BP diastolic 43–75
[2019-02-24] MEDS: BLOOD SUGAR DIAGNOSTIC STRIP TEST SCH ×2 (06:04→17:40)
[2019-02-24] MEDS: METHIMAZOLE 10MG TABLET PO SCH ×2 (06:09→15:09)
[2019-02-24] MEDS: DEXTROSE 50% WATER 50ML SYRINGE IV PRN (06:19)
[2019-02-24] MEDS: INSULIN LISPRO (LOW DOSE) 100 UNITS/ML SUBCUT SCH ×3 (07:40→17:40)
[2019-02-24] MEDS: DILTIAZEM HCL 30MG TABLET PO SCH (09:00)
[2019-02-24] MEDS: ENOXAPARIN 30MG/0.3ML SYR SUBCUT SCH (09:40)
[2019-02-24] MEDS: MAGNESIUM OXIDE 400MG TABLET PO SCH (09:40)
[2019-02-24] MEDS: POLYETHYLENE GLYCOL 3350 (17GM) 1 DOSE PACK PO SCH (09:40)
[2019-02-24] MEDS: CALAMINE LOTION 120ML TOP SCH (09:40)
[2019-02-24] MEDS: VANCOMYCIN 750 MG PREMIX 150 ML IV SCH (09:56)
== END 2019-02-24 19:48 | disposition home health service, planned readmission (86) | DRG 317 ==
LOC: ER 11:45 → 3WST 13:31 → EDBEDREQ 13:38 → ENRESERV 14:29 → 6WST 02-14 12:17 → 7WST 02-21 08:16
PROVIDERS: ADMIT Hospitalist; ATTEND Hospitalist
PROC: 02HV33Z Insertion of Infusion Device into Superior Vena Cava, Percutaneous Approach (ICD-10-PCS; 2019-02-09)
PROC: B548ZZA Ultrasonography of Superior Vena Cava, Guidance (ICD-10-PCS; 2019-02-09)
PROC: 0YBG0ZZ Excision of Left Knee Region, Open Approach (ICD-10-PCS; principal; 2019-02-14)
DX: T87.81 Dehiscence of amputation stump (principal); J96.00 Acute respiratory failure, unspecified whether with hypoxia or hypercapnia; I26.99 Other pulmonary embolism without acute cor pulmonale; A41.9 Sepsis, unspecified organism; E43 Unspecified severe protein-calorie malnutrition; L89.159 Pressure ulcer of sacral region, unspecified stage; Q21.2 Atrioventricular septal defect; D68.59 Other primary thrombophilia; E11.51 Type 2 diabetes mellitus with diabetic peripheral angiopathy without gangrene; E05.90 Thyrotoxicosis, unspecified without thyrotoxic crisis or storm; Z95.828 Presence of other vascular implants and grafts; Z89.612 Acquired absence of left leg above knee; T87.44 Infection of amputation stump, left lower extremity; F20.9 Schizophrenia, unspecified; E87.6 Hypokalemia; E55.9 Vitamin D deficiency, unspecified; F12.90 Cannabis use, unspecified, uncomplicated; F41.9 Anxiety disorder, unspecified; I27.20 Pulmonary hypertension, unspecified; J45.909 Unspecified asthma, uncomplicated; L02.419 Cutaneous abscess of limb, unspecified; I10 Essential (primary) hypertension; D64.9 Anemia, unspecified; G47.33 Obstructive sleep apnea (adult) (pediatric); E66.8 Other obesity; Y83.5 Amputation of limb(s) as the cause of abnormal reaction of the patient, or of later complication, without mention of misadventure at the time of the procedure; N64.4 Mastodynia; K75.9 Inflammatory liver disease, unspecified; Y83.8 Other surgical procedures as the cause of abnormal reaction of the patient, or of later complication, without mention of misadventure at the time of the procedure; Q21.1 Atrial septal defect; Z86.73 Personal history of transient ischemic attack (TIA), and cerebral infarction without residual deficits; Z98.891 History of uterine scar from previous surgery; Z68.41 Body mass index [BMI] 40.0-44.9, adult; Z79.01 Long term (current) use of anticoagulants; Z89.611 Acquired absence of right leg above knee; Z74.01 Bed confinement status; Z68.31 Body mass index [BMI] 31.0-31.9, adult
CPT/HCPCS: 36415; 36569; 36600; 71045; 74176; 76937; 78582; 80048; 80076; 80202; 80305; 82330; 82375; 82533; 82805; 82962; 83036; 83520; 83735; 83880; 84100; 84134; 84439; 84443; 84481; 84484; 84703; 85007; 85027; 86850; 86900; 87070; 87075; 87077; 87186; 93005; 93306; 94640; 96374; 96375; 99291; A6261; A9558; C1725; J0153; J0282; J0330; J1650; J1940; J2060; J2250; J2270; J2405; J2543; J2704; J2765; J3010; J3370; J3475; J3480; J3490; J7030; J7040; J7050; J7060; A4315

== ENCOUNTER 2019-03-23 19:26 | Inpatient (IN) | payer MEDICAID ==
[~2019-03-23] VITALS: Ht 162.6 cm; Wt 91.6 kg
[~2019-03-23 19:26] MED LIST changes: +APIX5TAB PO; +ATOR10TA69 PO; +FOLI-43 PO; +GABA-529 PO; +PANT40TA4 PO
[2019-03-23] MEDS ORDERED: HYDROCODONE/ACETAMINOPHEN 5/325MG TABLET PO STA (19:40)
[2019-03-23] MEDS ORDERED: PIPERACILLIN/TAZ 3.375G PREMIX 50 ML IV ONE (19:45)
[2019-03-23] MEDS ORDERED: SODIUM CHLORIDE 0.9% 1000ML BAG (SEPSIS BOLUS) IV ONE (19:45)
[2019-03-23] MEDS ORDERED: VANCOMYCIN 1 G PREMIX 200 ML IV ONE (19:45)
[2019-03-23 20:12] LABS: BASOPHILS % 0.3 % (0.0-2.0); HEMATOCRIT. 29.4 % (36.0-48.0); HEMOGLOBIN. 9.8 g/dL (12.0-16.0); MEAN CORPUSCULAR VOLUME 86.8 fL (81.0-99.0); MEAN PLATELET VOLUME 6.7 fl (7.4-10.4); MONOCYTES % 7.1 % (2.0-8.0); NEUTROPHILS % 64.6 % (40.0-76.0); PLATELET 345 x1000/uL (130-400); RED BLOOD CELL COUNT 3.39 mill/uL (4.2-5.4); RED CELL DISTRIBUTION WIDTH 20.6 % (11.6-14.6)
[2019-03-23 20:18] LABS: CHLORIDE 107 mEq/L (98-107)
[2019-03-23 20:20] LABS: INR 1.2; PROTHROMBIN TIME 11.8 sec (9.6-11.0)
[2019-03-23] MEDS ORDERED: HALOPERIDOL LACTATE 5MG/ML VIAL IM PRN (21:45)
[2019-03-23] MEDS ORDERED: ONDANSETRON HCL 4MG/2ML INJ IV PRN (21:45)
[2019-03-23] MEDS ORDERED: DOCUSATE SODIUM 100MG CAPSULE PO PRN (21:45)
[2019-03-23] MEDS ORDERED: NA PHOS,M-B/NA PHOS,DI-BA ENEMA 118ML PR PRN (21:45)
[2019-03-23] MEDS ORDERED: LORAZEPAM 0.5MG TABLET PO PRN (21:45)
[2019-03-23] MEDS ORDERED: IPRATROPIUM/ALBUTEROL 0.5-3(2.5)MG/3ML NEB INH PRN (21:45)
[2019-03-23] MEDS ORDERED: DEXTROSE 50% WATER 50ML SYRINGE IV PRN (21:45)
[2019-03-23] MEDS ORDERED: MAGNESIUM/ALUMINUM HYDROXIDE/SIMETHICONE 30ML UDC PO PRN (21:45)
[2019-03-23] MEDS ORDERED: GUAIFENESIN 200MG/10ML SUGAR FREE UDC PO PRN (21:45)
[2019-03-23] MEDS ORDERED: NITROGLYCERIN 0.4MG TABLET SL SL PRN (21:45)
[2019-03-23] MEDS ORDERED: CLONIDINE 0.1MG TABLET PO PRN (21:45)
[2019-03-23] MEDS ORDERED: ZOLPIDEM TARTRATE 5MG TABLET PO PRN (21:45)
[2019-03-23 22:38] LABS: T4 FREE 2.96 ng/dL (0.76-1.46)
[2019-03-24] VITALS (7 sets, daily range): BP systolic 93–105; BP diastolic 43–61
[2019-03-24 00:14] LABS: CLARITY URINE CLEAR (CLEAR); COLOR URINE YELLOW (YELLOW); KETONES URINE NEGATIVE (NEGATIVE); LEUKOCYTE ESTERASE URINE NEGATIVE (NEGATIVE); NITRITE URINE NEGATIVE (NEGATIVE); OCCULT BLOOD URINE NEGATIVE (NEGATIVE); PH URINE 6.5 (4.5-8.0); PROTEIN URINE NEGATIVE (NEGATIVE); SPECIFIC GRAVITY URINE 1.018 (1.005-1.030)
[2019-03-24 00:30] LABS: *AMPHETAMINES SCREEN URINE NEGATIVE (NEGATIVE); *BARBITURATES SCREEN URINE NEGATIVE (NEGATIVE); *BENZODIAZEPINES SCREEN URINE NEGATIVE (NEGATIVE)
[2019-03-24 00:31] LABS: *COCAINE SCREEN URINE NEGATIVE (NEGATIVE); CANNABINOID URINE SCREEN NEGATIVE (NEGATIVE); METHADONE URINE SCREEN NEGATIVE (NEGATIVE); PHENCYCLIDINE URINE SCREEN NEGATIVE (NEGATIVE)
[2019-03-24 00:35] LABS: OPIATES URINE SCREEN PRESUMTIVE POSITIVE (NEGATIVE)
[2019-03-24] MEDS: GABAPENTIN 300MG CAPSULE PO SCH ×4 (00:39→21:03)
[2019-03-24] MEDS: SODIUM CHLORIDE 0.9% 1,000 ML IV SCH ×2 (00:39→10:47)
[2019-03-24] MEDS: KETOROLAC 15MG/ML VIAL IV PRN ×2 (00:45→12:42)
[2019-03-24] MEDS ORDERED: MEROPENEM 1,000 MG in SODIUM CHLORIDE 0.9% 100 ML IV SCH (01:00)
[2019-03-24] MEDS ORDERED: VANCOMYCIN 1 G PREMIX 200 ML IV SCH (03:00)
[2019-03-24] MEDS: DILTIAZEM HCL 60MG TABLET PO SCH ×4 (05:42→18:26)
[2019-03-24] MEDS: INSULIN LISPRO 100 UNITS/ML SUBCUT SCH ×4 (06:06→21:00)
[2019-03-24] MEDS: BLOOD SUGAR DIAGNOSTIC STRIP TEST SCH ×4 (06:06→21:03)
[2019-03-24] MEDS: PROPRANOLOL HCL 10MG TABLET PO SCH ×2 (09:00→21:00)
[2019-03-24] MEDS: ZINC SULFATE 220 MG ( 50 ) CAPSULE PO SCH (09:23)
[2019-03-24] MEDS: FAMOTIDINE 20MG TABLET PO SCH ×2 (09:23→21:03)
[2019-03-24] MEDS: METHIMAZOLE 5MG TABLET PO SCH ×3 (09:24→18:30)
[2019-03-24] MEDS: ASCORBIC ACID 500 MG TABLET PO SCH ×2 (09:24→21:03)
[2019-03-24] MEDS: MEROPENEM 1,000 MG in SODIUM CHLORIDE 0.9% 100 ML IV SCH ×2 (10:47→18:26)
[2019-03-24] MEDS ORDERED: HALOPERIDOL LACTATE 5MG/ML VIAL IM PRN (11:15)
[2019-03-24] MEDS: TRAMADOL 50MG TABLET PO PRN (14:34)
[2019-03-24] MEDS: NYSTATIN POWDER 15GM TOP SCH (18:26)
[2019-03-24] MEDS: RIVAROXABAN 20 MG TABLET PO SCH (18:26)
[2019-03-24] MEDS: ACETAMINOPHEN 325MG TABLET PO PRN (18:30)
[2019-03-24] MEDS: VANCOMYCIN 750 MG PREMIX 150 ML IV SCH (21:03)
[2019-03-25] VITALS: BP 106/65
[2019-03-25] MEDS: MEROPENEM 1,000 MG in SODIUM CHLORIDE 0.9% 100 ML IV SCH ×3 (01:54→17:49)
[2019-03-25 04:00] VITALS: BP 103/63
[2019-03-25] MEDS: DILTIAZEM HCL 60MG TABLET PO SCH ×4 (06:00→18:00)
[2019-03-25] MEDS: SODIUM CHLORIDE 0.9% 1,000 ML IV SCH ×2 (06:14→18:21)
[2019-03-25] MEDS: BLOOD SUGAR DIAGNOSTIC STRIP TEST SCH ×4 (06:15→21:00)
[2019-03-25] MEDS: INSULIN LISPRO 100 UNITS/ML SUBCUT SCH ×4 (06:15→21:00)
[2019-03-25] MEDS: GABAPENTIN 300MG CAPSULE PO SCH ×3 (06:15→22:42)
[2019-03-25 08:00] VITALS: BP 93/61
[2019-03-25] MEDS: VANCOMYCIN 750 MG PREMIX 150 ML IV SCH ×2 (08:24→22:43)
[2019-03-25] MEDS: METHIMAZOLE 5MG TABLET PO SCH ×3 (08:24→17:50)
[2019-03-25] MEDS: FAMOTIDINE 20MG TABLET PO SCH ×2 (08:24→22:42)
[2019-03-25] MEDS: NYSTATIN POWDER 15GM TOP SCH ×3 (08:24→17:51)
[2019-03-25] MEDS: ZINC SULFATE 220 MG ( 50 ) CAPSULE PO SCH (08:24)
[2019-03-25] MEDS: PROPRANOLOL HCL 10MG TABLET PO SCH ×2 (08:25→22:42)
[2019-03-25] MEDS: ASCORBIC ACID 500 MG TABLET PO SCH ×2 (09:01→22:42)
[2019-03-25 12:05] VITALS: BP 106/63
[2019-03-25] MEDS: TRAMADOL 50MG TABLET PO PRN ×2 (14:56→22:43)
[2019-03-25 16:21] VITALS: BP 95/50
[2019-03-25] MEDS: RIVAROXABAN 20 MG TABLET PO SCH (17:51)
[2019-03-25 20:00] VITALS: BP 117/77
[2019-03-26] VITALS: BP 106/59
[2019-03-26] MEDS: MEROPENEM 1,000 MG in SODIUM CHLORIDE 0.9% 100 ML IV SCH ×3 (01:37→17:43)
[2019-03-26 04:00] VITALS: BP 101/63
[2019-03-26] MEDS: DILTIAZEM HCL 60MG TABLET PO SCH ×4 (06:00→17:45)
[2019-03-26] MEDS: SODIUM CHLORIDE 0.9% 1,000 ML IV SCH ×3 (06:53→21:18)
[2019-03-26] MEDS: GABAPENTIN 300MG CAPSULE PO SCH ×3 (06:54→21:18)
[2019-03-26] MEDS: INSULIN LISPRO 100 UNITS/ML SUBCUT SCH ×4 (06:56→21:00)
[2019-03-26] MEDS: BLOOD SUGAR DIAGNOSTIC STRIP TEST SCH ×4 (06:56→21:19)
[2019-03-26 07:30] LABS: BASOPHILS % 0.3 % (0.0-2.0); EOSINOPHILS % 3.9 % (0.0-5.0); HEMATOCRIT. 24.9 % (36.0-48.0); LYMPHOCYTES % 49.2 % (20.0-50.0); MEAN CORPUSCULAR HEMOGLOBIN 28.7 pg (28.0-32.0); MEAN CORPUSCULAR VOLUME 89.8 fL (81.0-99.0); MEAN PLATELET VOLUME 6.8 fl (7.4-10.4); MONOCYTES % 9.9 % (2.0-8.0); NEUTROPHILS % 36.7 % (40.0-76.0); PLATELET 337 x1000/uL (130-400); RED BLOOD CELL COUNT 2.78 mill/uL (4.2-5.4); RED CELL DISTRIBUTION WIDTH 20.5 % (11.6-14.6)
[2019-03-26 07:37] LABS: CHLORIDE 109 mEq/L (98-107)
[2019-03-26 08:00] VITALS: BP 94/50
[2019-03-26] MEDS: PROPRANOLOL HCL 10MG TABLET PO SCH ×2 (09:00→21:17)
[2019-03-26] MEDS: ASCORBIC ACID 500 MG TABLET PO SCH ×2 (09:37→21:18)
[2019-03-26] MEDS: VANCOMYCIN 750 MG PREMIX 150 ML IV SCH (09:37)
[2019-03-26] MEDS: METHIMAZOLE 5MG TABLET PO SCH ×3 (09:37→17:38)
[2019-03-26] MEDS: ZINC SULFATE 220 MG ( 50 ) CAPSULE PO SCH (09:37)
[2019-03-26] MEDS: FAMOTIDINE 20MG TABLET PO SCH ×2 (09:37→21:18)
[2019-03-26] MEDS: NYSTATIN POWDER 15GM TOP SCH ×3 (09:50→17:38)
[2019-03-26] MEDS: TRAMADOL 50MG TABLET PO PRN ×2 (09:51→19:26)
[2019-03-26 12:00] VITALS: BP 98/57
[2019-03-26] MEDS: KETOROLAC 15MG/ML VIAL IV PRN (15:02)
[2019-03-26 16:00] VITALS: BP 97/56
[2019-03-26] MEDS: RIVAROXABAN 20 MG TABLET PO SCH (17:38)
[2019-03-26 20:00] VITALS: BP 111/58
[2019-03-26] MEDS: VANCOMYCIN 1 G PREMIX 200 ML IV SCH (21:16)
[2019-03-26] MEDS: ACETAMINOPHEN 325MG TABLET PO PRN (21:47)
[2019-03-27] VITALS: BP 95/65
[2019-03-27] MEDS: MEROPENEM 1,000 MG in SODIUM CHLORIDE 0.9% 100 ML IV SCH ×3 (03:00→17:38)
[2019-03-27 04:00] VITALS: BP 125/59
[2019-03-27] MEDS: BLOOD SUGAR DIAGNOSTIC STRIP TEST SCH ×3 (06:35→17:08)
[2019-03-27] MEDS: INSULIN LISPRO 100 UNITS/ML SUBCUT SCH ×3 (06:35→17:08)
[2019-03-27] MEDS: DILTIAZEM HCL 60MG TABLET PO SCH ×4 (06:43→17:51)
[2019-03-27] MEDS: GABAPENTIN 300MG CAPSULE PO SCH ×2 (06:43→14:06)
[2019-03-27 08:00] VITALS: BP 93/43
[2019-03-27] MEDS: PROPRANOLOL HCL 10MG TABLET PO SCH (09:00)
[2019-03-27] MEDS: ASCORBIC ACID 500 MG TABLET PO SCH (09:20)
[2019-03-27] MEDS: ZINC SULFATE 220 MG ( 50 ) CAPSULE PO SCH (09:20)
[2019-03-27] MEDS: NYSTATIN POWDER 15GM TOP SCH ×3 (09:20→17:39)
[2019-03-27] MEDS: METHIMAZOLE 5MG TABLET PO SCH ×3 (09:20→17:47)
[2019-03-27] MEDS: FAMOTIDINE 20MG TABLET PO SCH (09:20)
[2019-03-27] MEDS: VANCOMYCIN 1 G PREMIX 200 ML IV SCH (09:20)
[2019-03-27] MEDS: SODIUM CHLORIDE 0.9% 1,000 ML IV SCH (09:21)
[2019-03-27 12:00] VITALS: BP 95/44
[2019-03-27] MEDS: TRAMADOL 50MG TABLET PO PRN (14:09)
[2019-03-27 16:00] VITALS: BP 113/65
[2019-03-27] MEDS: RIVAROXABAN 20 MG TABLET PO SCH (17:38)
[2019-03-27 18:54] VITALS: BP 113/65
== END 2019-03-27 19:30 | disposition home or self-care (01) | DRG 720 ==
LOC: ER 19:26 → 5WST 21:35 → EDBEDREQSVC 21:42 → EDBEDREQTM 21:42 → EDBEDREQ 21:42 → ENRESERV 23:04
PROVIDERS: ADMIT Internal Medicine; ATTEND Internal Medicine
DX: A41.9 Sepsis, unspecified organism (principal); E43 Unspecified severe protein-calorie malnutrition; Z89.612 Acquired absence of left leg above knee; F20.9 Schizophrenia, unspecified; L02.416 Cutaneous abscess of left lower limb; E11.9 Type 2 diabetes mellitus without complications; L03.116 Cellulitis of left lower limb; E03.9 Hypothyroidism, unspecified; E05.90 Thyrotoxicosis, unspecified without thyrotoxic crisis or storm; L30.4 Erythema intertrigo; E66.9 Obesity, unspecified; I10 Essential (primary) hypertension; Z79.4 Long term (current) use of insulin; Z86.19 Personal history of other infectious and parasitic diseases; Z86.718 Personal history of other venous thrombosis and embolism; Z86.73 Personal history of transient ischemic attack (TIA), and cerebral infarction without residual deficits; Z68.34 Body mass index [BMI] 34.0-34.9, adult; Z98.891 History of uterine scar from previous surgery
CPT/HCPCS: 36415; 71045; 80048; 80202; 80305; 82962; 83036; 83605; 84134; 84145; 84439; 84443; 84484; 93005; 96365; 96366; 99291; A6261; J1885; J2185; J2543; J3370; J7030; J7050

== ENCOUNTER 2019-04-02 10:55 | Inpatient (IN) | payer MEDICAID ==
[~2019-04-02] VITALS: Ht 165.1 cm; Wt 105.5 kg
[2019-04-02] MEDS ORDERED: MORPHINE SULFATE 4 MG/ML CPJ (NOT FOR IM USE) IV STA (12:56)
[2019-04-02] MEDS ORDERED: ONDANSETRON HCL 4MG/2ML INJ IV STA (12:56)
[2019-04-02 13:12] LABS: BASOPHILS % 0.7 % (0.0-2.0); EOSINOPHILS % 2.2 % (0.0-5.0); HEMOGLOBIN. 10.1 g/dL (12.0-16.0); LYMPHOCYTES % 34.2 % (20.0-50.0); MEAN CORPUSCULAR HEMOGLOBIN 29.1 pg (28.0-32.0); MEAN CORPUSCULAR VOLUME 89.2 fL (81.0-99.0); MEAN PLATELET VOLUME 5.9 fl (7.4-10.4); MONOCYTES % 9.2 % (2.0-8.0); NEUTROPHILS % 53.7 % (40.0-76.0); PLATELET 613 x1000/uL (130-400); RED BLOOD CELL COUNT 3.47 mill/uL (4.2-5.4); RED CELL DISTRIBUTION WIDTH 20.9 % (11.6-14.6)
[2019-04-02 13:21] LABS: INR 1.1; PARTIAL THROMBOPLASTIN TIME 29.9 sec (23.4-31.0); PROTHROMBIN TIME 11.4 sec (9.6-11.0)
[2019-04-02 13:23] LABS: HCG SCREEN NEGATIVE
[2019-04-02 13:36] LABS: CHLORIDE 107 mEq/L (98-107)
[2019-04-02] MEDS ORDERED: LORAZEPAM 1MG TABLET PO ONE (21:15)
[2019-04-03] MEDS ORDERED: ACETAMINOPHEN 500MG TABLET PO ONE (20:00)
[2019-04-03] MEDS ORDERED: MAGNESIUM/ALUMINUM HYDROXIDE/SIMETHICONE 30ML UDC PO PRN (22:00)
[2019-04-03] MEDS ORDERED: CLONIDINE 0.1MG TABLET PO PRN (22:00)
[2019-04-03] MEDS ORDERED: GUAIFENESIN 200MG/10ML SUGAR FREE UDC PO PRN (22:00)
[2019-04-03] MEDS ORDERED: DOCUSATE SODIUM 100MG CAPSULE PO PRN (22:00)
[2019-04-04 01:00] VITALS: BP 110/64
[2019-04-04] MEDS: HYDROCODONE/ACETAMINOPHEN 5/325MG TABLET PO PRN ×4 (01:19→18:43)
[2019-04-04] MEDS ORDERED: DEXTROSE 50% WATER 50ML SYRINGE IV PRN ×2 (04:30)
[2019-04-04 07:34] LABS: CHLORIDE 107 mEq/L (98-107)
[2019-04-04] MEDS: INSULIN LISPRO 100 UNITS/ML SUBCUT SCH ×4 (07:50→21:00)
[2019-04-04 08:00] VITALS: BP 92/59
[2019-04-04] MEDS: BLOOD SUGAR DIAGNOSTIC STRIP TEST SCH ×4 (08:11→21:49)
[2019-04-04] MEDS: APIXABAN 5 MG TABLET PO SCH ×2 (09:04→17:25)
[2019-04-04 12:00] VITALS: BP 97/44
[2019-04-04] MEDS: SODIUM CHLORIDE 0.45% 1,000 ML IV SCH (12:00)
[2019-04-04] MEDS: LORAZEPAM 2MG/ML CPJ IV PRN (13:42)
[2019-04-04] MEDS: GABAPENTIN 100MG CAPSULE PO SCH ×2 (13:53→21:48)
[2019-04-04 16:00] VITALS: BP 107/62
[2019-04-04 20:00] VITALS: BP 105/55
[2019-04-04] MEDS: QUETIAPINE FUMARATE 25MG TABLET PO SCH (21:49)
[2019-04-05] VITALS: BP 95/62
[2019-04-05 04:00] VITALS: BP 91/52
[2019-04-05] MEDS: GABAPENTIN 100MG CAPSULE PO SCH ×3 (05:29→21:27)
[2019-04-05] MEDS: INSULIN LISPRO 100 UNITS/ML SUBCUT SCH ×4 (05:58→21:00)
[2019-04-05] MEDS: BLOOD SUGAR DIAGNOSTIC STRIP TEST SCH ×4 (05:58→21:28)
[2019-04-05] MEDS: SODIUM CHLORIDE 0.45% 1,000 ML IV SCH ×2 (06:10→21:40)
[2019-04-05 08:00] VITALS: BP 102/84
[2019-04-05] MEDS: QUETIAPINE FUMARATE 25MG TABLET PO SCH ×2 (08:51→21:27)
[2019-04-05] MEDS: APIXABAN 5 MG TABLET PO SCH ×2 (08:52→18:21)
[2019-04-05] MEDS: HYDROCODONE/ACETAMINOPHEN 5/325MG TABLET PO PRN ×4 (08:53→22:56)
[2019-04-05] MEDS ORDERED: MORPHINE SULFATE 2 MG/ML CPJ (NOT FOR IM USE) IV SCH (11:30)
[2019-04-05 12:00] VITALS: BP 102/52
[2019-04-05 16:00] VITALS: BP 98/52
[2019-04-05] MEDS: LORAZEPAM 2MG/ML CPJ IV PRN (16:31)
[2019-04-06] VITALS: BP 93/47
[2019-04-06 04:00] VITALS: BP 93/47
[2019-04-06] MEDS: GABAPENTIN 100MG CAPSULE PO SCH ×3 (05:41→21:00)
[2019-04-06] MEDS: BLOOD SUGAR DIAGNOSTIC STRIP TEST SCH ×4 (05:42→20:53)
[2019-04-06] MEDS: SODIUM CHLORIDE 0.45% 1,000 ML IV SCH (06:34)
[2019-04-06 06:45] LABS: BASOPHILS % 0.6 % (0.0-2.0); EOSINOPHILS % 4.2 % (0.0-5.0); HEMOGLOBIN. 8.1 g/dL (12.0-16.0); LYMPHOCYTES % 46.2 % (20.0-50.0); MEAN CORPUSCULAR HEMOGLOBIN 29.5 pg (28.0-32.0); MEAN CORPUSCULAR VOLUME 90.9 fL (81.0-99.0); MEAN PLATELET VOLUME 6.2 fl (7.4-10.4); MONOCYTES % 8.1 % (2.0-8.0); NEUTROPHILS % 40.9 % (40.0-76.0); PLATELET 484 x1000/uL (130-400); RED BLOOD CELL COUNT 2.76 mill/uL (4.2-5.4)
[2019-04-06] MEDS: INSULIN LISPRO 100 UNITS/ML SUBCUT SCH ×4 (07:50→20:53)
[2019-04-06 08:00] VITALS: BP 107/65
[2019-04-06] MEDS: APIXABAN 5 MG TABLET PO SCH ×2 (09:16→17:44)
[2019-04-06] MEDS: QUETIAPINE FUMARATE 25MG TABLET PO SCH ×2 (09:16→20:44)
[2019-04-06] MEDS: HYDROCODONE/ACETAMINOPHEN 5/325MG TABLET PO PRN ×3 (10:29→22:42)
[2019-04-06 12:00] VITALS: BP 116/96
[2019-04-06 16:00] VITALS: BP 104/69
[2019-04-06 20:00] VITALS: BP 96/41
[2019-04-07] VITALS: BP 96/44
[2019-04-07] MEDS: SODIUM CHLORIDE 0.45% 1,000 ML IV SCH ×2 (00:27→16:00)
[2019-04-07 04:00] VITALS: BP 104/40
[2019-04-07] MEDS: GABAPENTIN 100MG CAPSULE PO SCH ×3 (06:16→21:05)
[2019-04-07] MEDS: BLOOD SUGAR DIAGNOSTIC STRIP TEST SCH ×4 (06:22→21:00)
[2019-04-07] MEDS: INSULIN LISPRO 100 UNITS/ML SUBCUT SCH ×4 (07:50→21:00)
[2019-04-07 08:00] VITALS: BP 104/47
[2019-04-07] MEDS: QUETIAPINE FUMARATE 25MG TABLET PO SCH ×2 (08:53→20:41)
[2019-04-07] MEDS: APIXABAN 5 MG TABLET PO SCH ×2 (08:53→17:08)
[2019-04-07] MEDS ORDERED: DIPHENHYDRAMINE 50MG/ML VIAL IV PRN (11:00)
[2019-04-07 12:00] VITALS: BP 101/63
[2019-04-07] MEDS: KETOROLAC 15MG/ML VIAL IV PRN ×3 (14:18→20:49)
[2019-04-07 16:00] VITALS: BP 100/53
[2019-04-07] MEDS: HYDROCODONE/ACETAMINOPHEN 5/325MG TABLET PO PRN (18:20)
[2019-04-07 20:00] VITALS: BP 99/40
[2019-04-08] VITALS: BP 98/45
[2019-04-08 04:00] VITALS: BP 111/43
[2019-04-08] MEDS: SODIUM CHLORIDE 0.45% 1,000 ML IV SCH ×2 (05:59→21:14)
[2019-04-08] MEDS: GABAPENTIN 100MG CAPSULE PO SCH ×3 (05:59→21:13)
[2019-04-08] MEDS: BLOOD SUGAR DIAGNOSTIC STRIP TEST SCH ×4 (07:35→21:14)
[2019-04-08] MEDS: INSULIN LISPRO 100 UNITS/ML SUBCUT SCH ×4 (07:50→21:00)
[2019-04-08 08:00] VITALS: BP 92/41
[2019-04-08] MEDS: QUETIAPINE FUMARATE 25MG TABLET PO SCH ×2 (08:17→21:12)
[2019-04-08] MEDS: APIXABAN 5 MG TABLET PO SCH ×2 (08:18→17:06)
[2019-04-08] MEDS: KETOROLAC 15MG/ML VIAL IV PRN ×2 (09:58→17:28)
[2019-04-08 12:00] VITALS: BP 114/55
[2019-04-08] MEDS: HYDROCODONE/ACETAMINOPHEN 5/325MG TABLET PO PRN (12:41)
[2019-04-08 16:00] VITALS: BP 98/45
[2019-04-08 20:00] VITALS: BP 106/59
[2019-04-09 00:10] VITALS: BP 110/66
[2019-04-09 04:00] VITALS: BP 117/60
[2019-04-09] MEDS: GABAPENTIN 100MG CAPSULE PO SCH ×3 (05:56→21:08)
[2019-04-09] MEDS: INSULIN LISPRO 100 UNITS/ML SUBCUT SCH ×4 (07:37→21:00)
[2019-04-09] MEDS: BLOOD SUGAR DIAGNOSTIC STRIP TEST SCH ×4 (07:37→21:07)
[2019-04-09 08:00] VITALS: BP_SYST 110; BP_SYST 99; BP_DIAS 66; BP_DIAS 68
[2019-04-09] MEDS: APIXABAN 5 MG TABLET PO SCH ×2 (09:00→17:09)
[2019-04-09] MEDS: KETOROLAC 15MG/ML VIAL IV PRN ×3 (09:01→21:25)
[2019-04-09] MEDS: QUETIAPINE FUMARATE 25MG TABLET PO SCH ×2 (09:01→21:07)
[2019-04-09 12:00] VITALS: BP 102/61
[2019-04-09 16:00] VITALS: BP 108/88
[2019-04-09] MEDS: SODIUM CHLORIDE 0.45% 1,000 ML IV SCH (17:53)
[2019-04-09 20:00] VITALS: BP 97/30
[2019-04-10] VITALS (8 sets, daily range): BP systolic 91–134; BP diastolic 39–101
[2019-04-10] MEDS: GABAPENTIN 100MG CAPSULE PO SCH ×3 (06:16→21:00)
[2019-04-10] MEDS: BLOOD SUGAR DIAGNOSTIC STRIP TEST SCH ×4 (06:20→21:00)
[2019-04-10] MEDS: INSULIN LISPRO 100 UNITS/ML SUBCUT SCH ×4 (06:20→21:00)
[2019-04-10] MEDS: SODIUM CHLORIDE 0.45% 1,000 ML IV SCH (07:44)
[2019-04-10] MEDS: QUETIAPINE FUMARATE 25MG TABLET PO SCH ×2 (08:49→20:58)
[2019-04-10] MEDS: APIXABAN 5 MG TABLET PO SCH ×2 (08:49→17:16)
[2019-04-10] MEDS: MORPHINE SULFATE 2 MG/ML CPJ (NOT FOR IM USE) IV PRN ×2 (09:16→13:39)
[2019-04-10] MEDS: ONDANSETRON HCL 4MG/2ML INJ IV PRN ×2 (09:16→15:44)
[2019-04-10] MEDS: KETOROLAC 15MG/ML VIAL IV PRN (12:25)
[2019-04-10] MEDS: ACETAMINOPHEN 325MG TABLET PO PRN (19:02)
[2019-04-10 21:01] LABS: BG BASE EXCESS 0.8 mmol/L (-2.0-2.0); BG CARBOXYHEMOGLOBIN 0.1 % (0.5-1.5); BG FRACTION INSPIRED OXYGEN 21; BG HCO3 ACT 24.4 mmol/L (22.0-26.0); BG METHEMOGLOBIN 0.3 % (0.0-1.5); BG OXYHEMOGLOBIN 92.6 % (94.0-97.0); BG PCO2 35.5 mmHg (35.0-45.0); BG PH 7.455 (7.350-7.450); BG PO2 69.9 mmHg (75.0-100.0); BG SAMPLE SITE RIGHT BRACHIAL; BG TOTAL HEMOGLOBIN 11.7 g/dL (12.0-18.0); BG VENT MODE ROOM AIR
[2019-04-11] VITALS (13 sets, daily range): BP systolic 95–114; BP diastolic 48–81
[2019-04-11] MEDS: MORPHINE SULFATE 2 MG/ML CPJ (NOT FOR IM USE) IV PRN ×3 (00:56→19:54)
[2019-04-11] MEDS: GABAPENTIN 100MG CAPSULE PO SCH ×3 (05:25→21:34)
[2019-04-11] MEDS: ACETAMINOPHEN 325MG TABLET PO PRN (05:35)
[2019-04-11] MEDS: SODIUM CHLORIDE 0.45% 1,000 ML IV SCH (05:35)
[2019-04-11] MEDS: BLOOD SUGAR DIAGNOSTIC STRIP TEST SCH ×4 (07:38→21:33)
[2019-04-11] MEDS: INSULIN LISPRO 100 UNITS/ML SUBCUT SCH (08:00)
[2019-04-11] MEDS: APIXABAN 5 MG TABLET PO SCH ×2 (09:11→17:29)
[2019-04-11] MEDS: QUETIAPINE FUMARATE 25MG TABLET PO SCH ×2 (09:11→21:34)
[2019-04-11] MEDS ORDERED: DEXT 5%/0.45% NACL 1000ML 1,000 ML IV ONE (11:15)
[2019-04-11 12:45] LABS: BASOPHILS % 0.4 % (0.0-2.0); HEMATOCRIT. 22.3 % (36.0-48.0); HEMOGLOBIN. 7.2 g/dL (12.0-16.0); LYMPHOCYTES % 28.4 % (20.0-50.0); MEAN CORPUSCULAR HEMOGLOBIN 30.5 pg (28.0-32.0); MEAN CORPUSCULAR VOLUME 94.2 fL (81.0-99.0); MEAN PLATELET VOLUME 6.6 fl (7.4-10.4); MONOCYTES % 12.8 % (2.0-8.0); NEUTROPHILS % 57.4 % (40.0-76.0); PLATELET 276 x1000/uL (130-400); RED BLOOD CELL COUNT 2.36 mill/uL (4.2-5.4); RED CELL DISTRIBUTION WIDTH 20.3 % (11.6-14.6)
[2019-04-11] MEDS: PIPERACILLIN/TAZ 3.375G PREMIX 50 ML IV SCH ×2 (12:53→17:30)
[2019-04-11 12:56] LABS: CHLORIDE 106 mEq/L (98-107)
[2019-04-11] MEDS ORDERED: VANCOMYCIN 2,000 MG in DEXT 5% WATER 500 ML IV SCH (14:00)
[2019-04-12] VITALS (13 sets, daily range): BP systolic 81–123; BP diastolic 50–95
[2019-04-12] MEDS: PIPERACILLIN/TAZ 3.375G PREMIX 50 ML IV SCH ×4 (01:26→18:28)
[2019-04-12] MEDS: VANCOMYCIN 1 G PREMIX 200 ML IV SCH ×2 (03:04→13:43)
[2019-04-12] MEDS: GABAPENTIN 100MG CAPSULE PO SCH ×3 (05:47→22:01)
[2019-04-12] MEDS: BLOOD SUGAR DIAGNOSTIC STRIP TEST SCH ×3 (07:30→21:00)
[2019-04-12] MEDS: APIXABAN 5 MG TABLET PO SCH ×2 (08:30→18:28)
[2019-04-12] MEDS: QUETIAPINE FUMARATE 25MG TABLET PO SCH ×2 (08:30→22:01)
[2019-04-12 08:33] LABS: HEMATOCRIT 26.1 % (36.0-48.0); HEMOGLOBIN 8.7 g/dL (12.0-16.0)
[2019-04-12] MEDS: MORPHINE SULFATE 2 MG/ML CPJ (NOT FOR IM USE) IV PRN (20:21)
[2019-04-13] VITALS (9 sets, daily range): BP systolic 102–114; BP diastolic 51–71
[2019-04-13] MEDS: PIPERACILLIN/TAZ 3.375G PREMIX 50 ML IV SCH ×5 (00:44→22:35)
[2019-04-13] MEDS: VANCOMYCIN 1 G PREMIX 200 ML IV SCH ×2 (01:38→14:45)
[2019-04-13] MEDS: GABAPENTIN 100MG CAPSULE PO SCH ×3 (06:12→21:16)
[2019-04-13] MEDS: BLOOD SUGAR DIAGNOSTIC STRIP TEST SCH ×4 (08:23→21:39)
[2019-04-13] MEDS: APIXABAN 5 MG TABLET PO SCH ×2 (08:23→17:01)
[2019-04-13] MEDS: QUETIAPINE FUMARATE 25MG TABLET PO SCH ×2 (08:23→21:15)
[2019-04-13] MEDS: ACETAMINOPHEN 325MG TABLET PO PRN ×2 (08:54→17:30)
[2019-04-13] MEDS: MORPHINE SULFATE 2 MG/ML CPJ (NOT FOR IM USE) IV PRN ×2 (14:44→22:29)
[2019-04-14] MEDS: VANCOMYCIN 1 G PREMIX 200 ML IV SCH ×2 (01:57→14:23)
[2019-04-14 04:00] VITALS: BP 110/62
[2019-04-14] MEDS: GABAPENTIN 100MG CAPSULE PO SCH ×3 (05:23→21:07)
[2019-04-14] MEDS: PIPERACILLIN/TAZ 3.375G PREMIX 50 ML IV SCH ×3 (05:23→18:21)
[2019-04-14 06:29] LABS: HEMATOCRIT. 25.8 % (36.0-48.0); HEMOGLOBIN. 8.8 g/dL (12.0-16.0); MEAN CORPUSCULAR HEMOGLOBIN 30.3 pg (28.0-32.0); MEAN CORPUSCULAR VOLUME 89.3 fL (81.0-99.0); MEAN PLATELET VOLUME 7.3 fl (7.4-10.4); PLATELET 255 x1000/uL (130-400); RED BLOOD CELL COUNT 2.89 mill/uL (4.2-5.4); RED CELL DISTRIBUTION WIDTH 19.6 % (11.6-14.6)
[2019-04-14 06:37] LABS: CHLORIDE 109 mEq/L (98-107)
[2019-04-14] MEDS: BLOOD SUGAR DIAGNOSTIC STRIP TEST SCH ×4 (07:43→21:07)
[2019-04-14 08:00] VITALS: BP 127/69
[2019-04-14] MEDS: QUETIAPINE FUMARATE 25MG TABLET PO SCH ×2 (09:00→21:07)
[2019-04-14] MEDS: APIXABAN 5 MG TABLET PO SCH ×2 (09:00→17:00)
[2019-04-14 12:29] VITALS: BP 95/62
[2019-04-14] MEDS: MORPHINE SULFATE 2 MG/ML CPJ (NOT FOR IM USE) IV PRN ×3 (14:23→22:34)
[2019-04-14 16:58] LABS: PLATELET ESTIMATE NORMAL
[2019-04-14 20:00] VITALS: BP 128/76
[2019-04-14] MEDS: ACETAMINOPHEN 325MG TABLET PO PRN (21:07)
[2019-04-15] VITALS (9 sets, daily range): BP systolic 90–136; BP diastolic 40–89
[2019-04-15] MEDS: PIPERACILLIN/TAZ 3.375G PREMIX 50 ML IV SCH ×4 (00:17→17:22)
[2019-04-15] MEDS: VANCOMYCIN 1 G PREMIX 200 ML IV SCH ×2 (02:42→14:54)
[2019-04-15] MEDS: GABAPENTIN 100MG CAPSULE PO SCH ×3 (05:17→21:25)
[2019-04-15] MEDS: BLOOD SUGAR DIAGNOSTIC STRIP TEST SCH ×4 (07:30→21:25)
[2019-04-15] MEDS: QUETIAPINE FUMARATE 25MG TABLET PO SCH ×2 (09:11→21:25)
[2019-04-15] MEDS: APIXABAN 5 MG TABLET PO SCH ×2 (09:11→17:48)
[2019-04-15] MEDS: MORPHINE SULFATE 2 MG/ML CPJ (NOT FOR IM USE) IV PRN ×2 (15:12→21:26)
[2019-04-15] MEDS: ONDANSETRON HCL 4MG/2ML INJ IV PRN (21:40)
[2019-04-16] VITALS (12 sets, daily range): BP systolic 78–134; BP diastolic 47–91
[2019-04-16] MEDS: PIPERACILLIN/TAZ 3.375G PREMIX 50 ML IV SCH ×5 (04:53→23:28)
[2019-04-16] MEDS: VANCOMYCIN 1 G PREMIX 200 ML IV SCH ×2 (04:53→14:30)
[2019-04-16] MEDS: GABAPENTIN 100MG CAPSULE PO SCH ×3 (06:28→21:59)
[2019-04-16] MEDS: BLOOD SUGAR DIAGNOSTIC STRIP TEST SCH ×4 (07:30→21:00)
[2019-04-16] MEDS: APIXABAN 5 MG TABLET PO SCH ×2 (09:11→17:19)
[2019-04-16] MEDS: QUETIAPINE FUMARATE 25MG TABLET PO SCH ×2 (09:11→21:59)
[2019-04-16] MEDS: MORPHINE SULFATE 2 MG/ML CPJ (NOT FOR IM USE) IV PRN ×3 (09:16→22:11)
[2019-04-16] MEDS ORDERED: SODIUM CHLORIDE 0.9% 1,000 ML IV SCH ×2 (15:00→20:00)
[2019-04-16] MEDS: ACETAMINOPHEN 325MG TABLET PO PRN (15:48)
[2019-04-17] VITALS (7 sets, daily range): BP systolic 104–133; BP diastolic 53–86
[2019-04-17] MEDS: VANCOMYCIN 1 G PREMIX 200 ML IV SCH ×2 (01:39→14:34)
[2019-04-17] MEDS: GABAPENTIN 100MG CAPSULE PO SCH ×3 (06:34→21:24)
[2019-04-17] MEDS: PIPERACILLIN/TAZ 3.375G PREMIX 50 ML IV SCH ×4 (06:34→23:04)
[2019-04-17] MEDS: BLOOD SUGAR DIAGNOSTIC STRIP TEST SCH ×4 (06:44→20:33)
[2019-04-17] MEDS: APIXABAN 5 MG TABLET PO SCH ×2 (08:59→17:00)
[2019-04-17] MEDS: QUETIAPINE FUMARATE 25MG TABLET PO SCH ×2 (08:59→20:27)
[2019-04-17 09:11] LABS: HEMATOCRIT. 26.9 % (36.0-48.0); MEAN CORPUSCULAR HEMOGLOBIN 30.1 pg (28.0-32.0); MEAN CORPUSCULAR VOLUME 90.2 fL (81.0-99.0); MEAN PLATELET VOLUME 7.3 fl (7.4-10.4); PLATELET 238 x1000/uL (130-400); RED CELL DISTRIBUTION WIDTH 19.4 % (11.6-14.6)
[2019-04-17 09:19] LABS: CHLORIDE 110 mEq/L (98-107)
[2019-04-17] MEDS ORDERED: POTASSIUM CHLORIDE 20MEQ TABLET SR PO SCH (10:00)
[2019-04-17] MEDS: MORPHINE SULFATE 2 MG/ML CPJ (NOT FOR IM USE) IV PRN ×3 (10:26→23:05)
[2019-04-17] MEDS: DEXT 5%/0.9% NACL 1,000 ML IV SCH (14:35)
[2019-04-17 19:54] LABS: PLATELET ESTIMATE NORMAL
[2019-04-18] VITALS: BP 101/53
[2019-04-18] MEDS: VANCOMYCIN 1 G PREMIX 200 ML IV SCH ×2 (01:20→13:06)
[2019-04-18 04:00] VITALS: BP 102/50
[2019-04-18] MEDS: GABAPENTIN 100MG CAPSULE PO SCH ×3 (05:03→21:14)
[2019-04-18] MEDS: PIPERACILLIN/TAZ 3.375G PREMIX 50 ML IV SCH ×3 (05:08→23:27)
[2019-04-18] MEDS: DEXT 5%/0.9% NACL 1,000 ML IV SCH ×2 (05:08→16:40)
[2019-04-18] MEDS: BLOOD SUGAR DIAGNOSTIC STRIP TEST SCH ×4 (06:34→20:12)
[2019-04-18 07:53] VITALS: BP 125/62
[2019-04-18] MEDS: QUETIAPINE FUMARATE 25MG TABLET PO SCH ×2 (08:42→21:14)
[2019-04-18] MEDS: APIXABAN 5 MG TABLET PO SCH ×2 (08:43→17:00)
[2019-04-18] MEDS: MORPHINE SULFATE 2 MG/ML CPJ (NOT FOR IM USE) IV PRN ×3 (09:12→21:34)
[2019-04-18 12:00] VITALS: BP 116/42
[2019-04-18] MEDS ORDERED: BUPIVACAINE HCL/PF 0.25% (2.5MG/ML) 10ML ONE (12:17)
[2019-04-18 16:00] VITALS: BP 105/59
[2019-04-18] MEDS ORDERED: BACITRACIN 50,000 UNITS/VIAL ONE (16:00)
[2019-04-18] MEDS ORDERED: VANCOMYCIN HCL 500 MG/VIAL ONE (16:10)
[2019-04-18] MEDS ORDERED: TOBRAMYCIN SULFATE 80MG/2ML 30ML ONE (16:14)
[2019-04-18] MEDS ORDERED: PROPOFOL 200MG/20ML VIAL IV ONE (16:17)
[2019-04-18] MEDS ORDERED: FENTANYL CITRATE/PF 50MCG/ML 2ML VIAL ONE (16:17)
[2019-04-18] MEDS ORDERED: MIDAZOLAM HCL 2 MG/2 ML VIAL ONE (16:18)
[2019-04-18] MEDS ORDERED: DEXAMETHASONE 4MG/ML 1ML VIAL ONE (16:31)
[2019-04-18] MEDS ORDERED: MEPERIDINE HCL/PF 25MG/ML CPJ IV PRN (16:45)
[2019-04-18] MEDS ORDERED: HYDROMORPHONE HCL/PF 2MG/ML CPJ IV PRN (16:45)
[2019-04-18] MEDS ORDERED: LABETALOL HCL 20MG/4ML CARPUJECT IV PRN (16:45)
[2019-04-18] MEDS ORDERED: ONDANSETRON HCL 4MG/2ML INJ IV PRN (16:45)
[2019-04-18] MEDS ORDERED: ONDANSETRON HCL 4MG/2ML INJ ONE (16:46)
[2019-04-18] MEDS ORDERED: ASCO500C15 PO (18:28)
[2019-04-18] MEDS ORDERED: ZINC220T PO (18:30)
[2019-04-18 20:00] VITALS: BP 112/61
[2019-04-19] VITALS: BP 105/87
[2019-04-19] MEDS: VANCOMYCIN 1 G PREMIX 200 ML IV SCH ×2 (02:35→15:12)
[2019-04-19 04:00] VITALS: BP 132/72
[2019-04-19] MEDS: PIPERACILLIN/TAZ 3.375G PREMIX 50 ML IV SCH ×2 (05:02→14:10)
[2019-04-19] MEDS: MORPHINE SULFATE 2 MG/ML CPJ (NOT FOR IM USE) IV PRN (05:03)
[2019-04-19] MEDS: GABAPENTIN 100MG CAPSULE PO SCH ×3 (05:13→14:10)
[2019-04-19] MEDS: BLOOD SUGAR DIAGNOSTIC STRIP TEST SCH ×2 (06:36→10:13)
[2019-04-19] MEDS: APIXABAN 5 MG TABLET PO SCH ×2 (09:00→17:00)
[2019-04-19] MEDS: QUETIAPINE FUMARATE 25MG TABLET PO SCH (10:40)
[2019-04-19 12:00] VITALS: BP 115/76
[2019-04-19 16:00] VITALS: BP 126/53
[2019-04-19 17:14] VITALS: BP 126/53
[2019-04-20] MEDS ORDERED: SULFAMETHOXAZOLE/TRIMETHOPRIM 800/160MG TABLET PO SCH (09:00)
== END 2019-04-19 18:45 | DRG 312 ==
LOC: ER 10:55 → 6EST 04-03 20:44 → SUPCPDRO 04-03 21:57 → ENRESERV 04-03 22:29 → 5EST 04-10 21:55 → 6EST 04-17 03:10
PROVIDERS: ADMIT Hospitalist; ATTEND Hospitalist
PROC: 30233N1 Transfusion of Nonautologous Red Blood Cells into Peripheral Vein, Percutaneous Approach (ICD-10-PCS; 2019-04-11)
PROC: 02HV33Z Insertion of Infusion Device into Superior Vena Cava, Percutaneous Approach (ICD-10-PCS; 2019-04-14)
PROC: B548ZZA Ultrasonography of Superior Vena Cava, Guidance (ICD-10-PCS; 2019-04-14)
PROC: 0HBJXZZ Excision of Left Upper Leg Skin, External Approach (ICD-10-PCS; principal; 2019-04-18)
PROC: 3E00X29 Introduction of Other Anti-infective into Skin and Mucous Membranes, External Approach (ICD-10-PCS; 2019-04-18)
DX: T87.81 Dehiscence of amputation stump (principal); E43 Unspecified severe protein-calorie malnutrition; D68.59 Other primary thrombophilia; E11.40 Type 2 diabetes mellitus with diabetic neuropathy, unspecified; I82.402 Acute embolism and thrombosis of unspecified deep veins of left lower extremity; F20.9 Schizophrenia, unspecified; Z89.612 Acquired absence of left leg above knee; T76.21XA Adult sexual abuse, suspected, initial encounter; T87.40 Infection of amputation stump, unspecified extremity; I10 Essential (primary) hypertension; L02.419 Cutaneous abscess of limb, unspecified; Y83.5 Amputation of limb(s) as the cause of abnormal reaction of the patient, or of later complication, without mention of misadventure at the time of the procedure; Z89.512 Acquired absence of left leg below knee; Z86.73 Personal history of transient ischemic attack (TIA), and cerebral infarction without residual deficits; Z98.891 History of uterine scar from previous surgery
CPT/HCPCS: 36415; 36569; 36600; 71045; 73700; 76937; 80048; 80202; 82375; 82805; 82962; 83735; 84145; 84703; 85014; 85018; 86850; 86900; 86920; 87070; 87075; 93970; 96374; 96375; 97162; 99284; A6261; C1725; C1893; J1100; J1815; J1885; J2060; J2250; J2270; J2405; J2543; J2704; J3010; J3260; J3370; J3490; J7030; J7042; J7050; J7060; P9016; A4315

== ENCOUNTER 2019-06-01 18:17 | Inpatient (IN) | payer MEDICAID ==
[~2019-06-01] VITALS: Ht 160 cm; Wt 94.3 kg
[~2019-06-01 18:17] MED LIST changes: -ACET325C5 PO; -ACET650S25 PO; +ASCO500C15 PO; -CLON0.1T PO; -HYDR-4001 PO; -XAR15 PO; +ZINC220T PO
[2019-06-01] MEDS ORDERED: SODIUM CHLORIDE 0.9% 1,000 ML IV ONE (19:09)
[2019-06-01] MEDS ORDERED: ONDANSETRON HCL 4MG/2ML INJ IV STA (19:09)
[2019-06-01] MEDS ORDERED: MORPHINE SULFATE 4 MG/ML CPJ (NOT FOR IM USE) IV STA (19:09)
[2019-06-01] MEDS ORDERED: PIPERACILLIN/TAZ 3.375G PREMIX 50 ML IV ONE (19:15)
[2019-06-01] MEDS ORDERED: SODIUM CHLORIDE 0.9% 1000ML BAG (SEPSIS BOLUS) IV ONE (19:15)
[2019-06-01] MEDS ORDERED: VANCOMYCIN 1 G PREMIX 200 ML IV ONE (19:15)
[2019-06-01 19:20] LABS: BASOPHILS % 0.7 % (0.0-2.0); EOSINOPHILS % 3.7 % (0.0-5.0); HEMATOCRIT. 34.3 % (36.0-48.0); HEMOGLOBIN. 11.1 g/dL (12.0-16.0); LYMPHOCYTES % 52.6 % (20.0-50.0); MEAN CORPUSCULAR HEMOGLOBIN 28.5 pg (28.0-32.0); MEAN CORPUSCULAR VOLUME 88.2 fL (81.0-99.0); MEAN PLATELET VOLUME 8.6 fl (7.4-10.4); MONOCYTES % 10.3 % (2.0-8.0); NEUTROPHILS % 32.7 % (40.0-76.0); PLATELET 194 x1000/uL (130-400); RED BLOOD CELL COUNT 3.89 mill/uL (4.2-5.4); RED CELL DISTRIBUTION WIDTH 14.3 % (11.6-14.6)
[2019-06-01 19:22] LABS: CHLORIDE 110 mEq/L (98-107); INR 1.1; PROTHROMBIN TIME 11.5 sec (9.6-11.0)
[2019-06-01 19:27] LABS: ETHANOL BLOOD < 10 mg/dL
[2019-06-01 19:42] LABS: HCG SCREEN NEGATIVE
[2019-06-02 00:42] LABS: CLARITY URINE TURBID (CLEAR); COLOR URINE YELLOW (YELLOW); KETONES URINE NEGATIVE (NEGATIVE); LEUKOCYTE ESTERASE URINE 2+ (NEGATIVE); NITRITE URINE NEGATIVE (NEGATIVE); OCCULT BLOOD URINE 3+ (NEGATIVE); PROTEIN URINE TRACE (NEGATIVE); SPECIFIC GRAVITY URINE 1.021 (1.005-1.030)
[2019-06-02 01:00] LABS: *AMPHETAMINES SCREEN URINE NEGATIVE (NEGATIVE); *BARBITURATES SCREEN URINE NEGATIVE (NEGATIVE); *BENZODIAZEPINES SCREEN URINE NEGATIVE (NEGATIVE)
[2019-06-02 01:01] LABS: *COCAINE SCREEN URINE NEGATIVE (NEGATIVE); CANNABINOID URINE SCREEN NEGATIVE (NEGATIVE); METHADONE URINE SCREEN NEGATIVE (NEGATIVE); PHENCYCLIDINE URINE SCREEN NEGATIVE (NEGATIVE)
[2019-06-02 01:04] LABS: OPIATES URINE SCREEN PRESUMTIVE POSITIVE (NEGATIVE)
[2019-06-02 04:00] VITALS: BP 92/34
[2019-06-02] MEDS ORDERED: VANCOMYCIN 1 G PREMIX 200 ML IV SCH (06:45)
[2019-06-02] MEDS ORDERED: DEXTROSE 50% WATER 50ML SYRINGE IV PRN (06:45)
[2019-06-02] MEDS ORDERED: CLONIDINE 0.2MG TABLET PO PRN (06:45)
[2019-06-02] MEDS ORDERED: MEDICATION NOT ON FORMULARY EA (Gabapentin 2 CAP) PO SCH (07:00)
[2019-06-02] MEDS: INSULIN LISPRO 100 UNITS/ML SUBCUT SCH ×4 (07:15→21:00)
[2019-06-02] MEDS: BLOOD SUGAR DIAGNOSTIC STRIP TEST SCH ×4 (07:35→21:47)
[2019-06-02] MEDS: GABAPENTIN 100MG CAPSULE PO SCH ×3 (07:59→21:41)
[2019-06-02] MEDS: PANTOPRAZOLE 40MG DR TABLET PO SCH (07:59)
[2019-06-02 08:06] VITALS: BP 110/63
[2019-06-02] MEDS ORDERED: MEDICATION NOT ON FORMULARY EA (Amlodipine Besylate 5 MG) PO SCH (09:00)
[2019-06-02] MEDS ORDERED: MEDICATION NOT ON FORMULARY EA (Zinc Sulfate 220 MG) PO SCH (09:00)
[2019-06-02] MEDS ORDERED: MEDICATION NOT ON FORMULARY EA (Apixaban (Eliquis) 5 MG) PO SCH (09:00)
[2019-06-02] MEDS ORDERED: MEDICATION NOT ON FORMULARY EA (Ascorbic Acid (Vitamin C) 500 MG) PO SCH (09:00)
[2019-06-02] MEDS ORDERED: VANCOMYCIN 2,000 MG in DEXT 5% WATER 500 ML IV SCH (09:00)
[2019-06-02] MEDS ORDERED: MEDICATION NOT ON FORMULARY EA (Docusate Sodium (Colace) 100 MG) PO SCH (09:00)
[2019-06-02] MEDS ORDERED: MEDICATION NOT ON FORMULARY EA (Folic Acid 1 MG) PO SCH (09:00)
[2019-06-02] MEDS: SODIUM CHLORIDE 0.9% 1,000 ML IV SCH ×2 (09:55→22:28)
[2019-06-02] MEDS: ZINC SULFATE 220 MG ( 50 ) CAPSULE PO SCH (09:56)
[2019-06-02] MEDS: ASCORBIC ACID 500 MG TABLET PO SCH ×2 (09:56→18:55)
[2019-06-02] MEDS: DOCUSATE SODIUM 100MG CAPSULE PO SCH ×2 (09:56→18:55)
[2019-06-02] MEDS: QUETIAPINE FUMARATE 25MG TABLET PO SCH ×2 (09:56→21:41)
[2019-06-02] MEDS: FOLIC ACID 1MG TABLET PO SCH (09:56)
[2019-06-02] MEDS: AMLODIPINE 5MG TABLET PO SCH ×2 (09:57→21:42)
[2019-06-02] MEDS: APIXABAN 5 MG TABLET PO SCH ×2 (09:57→18:55)
[2019-06-02] MEDS: PIPERACILLIN/TAZ 3.375G PREMIX 50 ML IV SCH ×3 (09:57→22:14)
[2019-06-02 12:26] VITALS: BP 117/81
[2019-06-02] MEDS: HYDROCODONE/ACETAMINOPHEN 5/325MG TABLET PO PRN ×2 (14:49→21:47)
[2019-06-02 16:07] VITALS: BP 109/58
[2019-06-02 20:00] VITALS: BP 118/67
[2019-06-02] MEDS: ATORVASTATIN CALCIUM 10MG TABLET PO SCH (21:41)
[2019-06-02] MEDS: VANCOMYCIN 750 MG PREMIX 150 ML IV SCH (23:03)
[2019-06-03] VITALS: BP 106/44
[2019-06-03 04:00] VITALS: BP 112/50
[2019-06-03] MEDS: PIPERACILLIN/TAZ 3.375G PREMIX 50 ML IV SCH ×4 (05:09→21:08)
[2019-06-03] MEDS: INSULIN LISPRO 100 UNITS/ML SUBCUT SCH ×4 (06:28→21:00)
[2019-06-03] MEDS: BLOOD SUGAR DIAGNOSTIC STRIP TEST SCH ×4 (06:28→21:09)
[2019-06-03] MEDS: GABAPENTIN 100MG CAPSULE PO SCH ×3 (06:30→21:09)
[2019-06-03] MEDS: PANTOPRAZOLE 40MG DR TABLET PO SCH (06:30)
[2019-06-03] MEDS ORDERED: MEDICATION NOT ON FORMULARY EA (Pantoprazole Sodium 40 MG) PO SCH (06:45)
[2019-06-03 08:00] VITALS: BP 101/55
[2019-06-03] MEDS: ZINC SULFATE 220 MG ( 50 ) CAPSULE PO SCH (09:55)
[2019-06-03] MEDS: DOCUSATE SODIUM 100MG CAPSULE PO SCH ×2 (09:55→18:20)
[2019-06-03] MEDS: AMLODIPINE 5MG TABLET PO SCH ×2 (09:56→21:08)
[2019-06-03] MEDS: QUETIAPINE FUMARATE 25MG TABLET PO SCH ×2 (09:56→21:08)
[2019-06-03] MEDS: ASCORBIC ACID 500 MG TABLET PO SCH ×2 (09:56→18:20)
[2019-06-03] MEDS: SODIUM CHLORIDE 0.9% 1,000 ML IV SCH ×2 (09:56→22:58)
[2019-06-03] MEDS: APIXABAN 5 MG TABLET PO SCH ×2 (09:56→18:20)
[2019-06-03] MEDS: FOLIC ACID 1MG TABLET PO SCH (09:56)
[2019-06-03] MEDS: VANCOMYCIN 750 MG PREMIX 150 ML IV SCH ×2 (09:57→21:08)
[2019-06-03 12:00] VITALS: BP 94/47
[2019-06-03] MEDS: MORPHINE SULFATE 2 MG/ML CPJ (NOT FOR IM USE) IV PRN ×2 (13:59→19:09)
[2019-06-03 16:00] VITALS: BP 98/45
[2019-06-03 20:00] VITALS: BP 109/57
[2019-06-03] MEDS: ATORVASTATIN CALCIUM 10MG TABLET PO SCH (21:08)
[2019-06-04] VITALS: BP 106/40
[2019-06-04] MEDS: PIPERACILLIN/TAZ 3.375G PREMIX 50 ML IV SCH ×4 (02:17→21:50)
[2019-06-04 04:00] VITALS: BP 139/72
[2019-06-04] MEDS: BLOOD SUGAR DIAGNOSTIC STRIP TEST SCH ×4 (05:47→21:00)
[2019-06-04] MEDS: PANTOPRAZOLE 40MG DR TABLET PO SCH (05:52)
[2019-06-04] MEDS: GABAPENTIN 100MG CAPSULE PO SCH ×3 (05:52→21:51)
[2019-06-04] MEDS: INSULIN LISPRO 100 UNITS/ML SUBCUT SCH ×4 (06:19→21:00)
[2019-06-04 07:47] LABS: BASOPHILS % 0.2 % (0.0-2.0); EOSINOPHILS % 5.8 % (0.0-5.0); HEMATOCRIT. 30.6 % (36.0-48.0); HEMOGLOBIN. 10.2 g/dL (12.0-16.0); LYMPHOCYTES % 39.9 % (20.0-50.0); MEAN CORPUSCULAR HEMOGLOBIN 29.2 pg (28.0-32.0); MEAN CORPUSCULAR VOLUME 87.6 fL (81.0-99.0); MEAN PLATELET VOLUME 9.1 fl (7.4-10.4); MONOCYTES % 10.8 % (2.0-8.0); NEUTROPHILS % 43.3 % (40.0-76.0); PLATELET 182 x1000/uL (130-400); RED BLOOD CELL COUNT 3.49 mill/uL (4.2-5.4); RED CELL DISTRIBUTION WIDTH 14.5 % (11.6-14.6)
[2019-06-04 08:00] VITALS: BP 105/66
[2019-06-04 08:30] LABS: CHLORIDE 112 mEq/L (98-107)
[2019-06-04] MEDS: AMLODIPINE 5MG TABLET PO SCH ×2 (10:30→21:50)
[2019-06-04] MEDS: DOCUSATE SODIUM 100MG CAPSULE PO SCH ×2 (10:30→17:39)
[2019-06-04] MEDS: APIXABAN 5 MG TABLET PO SCH ×2 (10:31→17:39)
[2019-06-04] MEDS: ZINC SULFATE 220 MG ( 50 ) CAPSULE PO SCH ×2 (10:31→10:49)
[2019-06-04] MEDS: ASCORBIC ACID 500 MG TABLET PO SCH ×2 (10:31→10:49)
[2019-06-04] MEDS: QUETIAPINE FUMARATE 25MG TABLET PO SCH ×2 (10:31→21:50)
[2019-06-04] MEDS: FOLIC ACID 1MG TABLET PO SCH (10:31)
[2019-06-04] MEDS: VANCOMYCIN 750 MG PREMIX 150 ML IV SCH (10:32)
[2019-06-04] MEDS: MORPHINE SULFATE 2 MG/ML CPJ (NOT FOR IM USE) IV PRN ×3 (10:55→20:31)
[2019-06-04 12:00] VITALS: BP 120/75
[2019-06-04] MEDS: SODIUM CHLORIDE 0.9% 1,000 ML IV SCH (12:41)
[2019-06-04 16:00] VITALS: BP 111/68
[2019-06-04] MEDS: VANCOMYCIN 1 G PREMIX 200 ML IV SCH (17:39)
[2019-06-04 20:00] VITALS: BP 117/60
[2019-06-04] MEDS: ATORVASTATIN CALCIUM 10MG TABLET PO SCH (21:50)
[2019-06-05] VITALS: BP 121/59
[2019-06-05] MEDS: SODIUM CHLORIDE 0.9% 1,000 ML IV SCH ×2 (02:57→15:59)
[2019-06-05] MEDS: PIPERACILLIN/TAZ 3.375G PREMIX 50 ML IV SCH ×2 (02:58→08:59)
[2019-06-05 04:00] VITALS: BP 127/73
[2019-06-05] MEDS: VANCOMYCIN 750 MG PREMIX 150 ML IV SCH (06:35)
[2019-06-05] MEDS: GABAPENTIN 100MG CAPSULE PO SCH ×3 (06:36→21:49)
[2019-06-05] MEDS: VANCOMYCIN 1 G PREMIX 200 ML IV SCH ×2 (06:39→17:22)
[2019-06-05] MEDS: INSULIN LISPRO 100 UNITS/ML SUBCUT SCH ×4 (07:15→21:00)
[2019-06-05] MEDS: BLOOD SUGAR DIAGNOSTIC STRIP TEST SCH ×4 (07:44→21:47)
[2019-06-05 08:00] VITALS: BP 135/77
[2019-06-05] MEDS: PANTOPRAZOLE 40MG DR TABLET PO SCH (08:54)
[2019-06-05] MEDS: AMLODIPINE 5MG TABLET PO SCH ×2 (08:55→21:47)
[2019-06-05] MEDS: APIXABAN 5 MG TABLET PO SCH ×2 (08:55→16:38)
[2019-06-05] MEDS: ASCORBIC ACID 500 MG TABLET PO SCH ×2 (08:55→16:38)
[2019-06-05] MEDS: DOCUSATE SODIUM 100MG CAPSULE PO SCH ×2 (08:55→16:38)
[2019-06-05] MEDS: QUETIAPINE FUMARATE 25MG TABLET PO SCH ×2 (08:55→21:54)
[2019-06-05] MEDS: FOLIC ACID 1MG TABLET PO SCH (08:55)
[2019-06-05] MEDS: MORPHINE SULFATE 2 MG/ML CPJ (NOT FOR IM USE) IV PRN ×4 (08:56→21:49)
[2019-06-05] MEDS ORDERED: ONDANSETRON HCL 4MG/2ML INJ IV PRN (10:30)
[2019-06-05] MEDS ORDERED: POTASSIUM CHLORIDE 20MEQ TABLET SR PO NR (10:30)
[2019-06-05 12:00] VITALS: BP 134/68
[2019-06-05] MEDS: MEROPENEM 1,000 MG in SODIUM CHLORIDE 0.9% 100 ML IV SCH ×2 (15:58→21:54)
[2019-06-05 16:00] VITALS: BP 115/69
[2019-06-05 20:00] VITALS: BP 115/60
[2019-06-05] MEDS: HYDROCODONE/ACETAMINOPHEN 5/325MG TABLET PO PRN (20:00)
[2019-06-05] MEDS: ATORVASTATIN CALCIUM 10MG TABLET PO SCH (21:46)
[2019-06-06] VITALS: BP 158/87
[2019-06-06 04:00] VITALS: BP 179/114
[2019-06-06] MEDS: SODIUM CHLORIDE 0.9% 1,000 ML IV SCH ×2 (04:05→17:59)
[2019-06-06] MEDS: MEROPENEM 1,000 MG in SODIUM CHLORIDE 0.9% 100 ML IV SCH ×3 (06:02→21:05)
[2019-06-06] MEDS: VANCOMYCIN 1 G PREMIX 200 ML IV SCH (06:04)
[2019-06-06] MEDS: GABAPENTIN 100MG CAPSULE PO SCH ×3 (06:05→21:05)
[2019-06-06] MEDS: BLOOD SUGAR DIAGNOSTIC STRIP TEST SCH ×4 (06:05→20:19)
[2019-06-06] MEDS: INSULIN LISPRO 100 UNITS/ML SUBCUT SCH ×4 (06:05→20:19)
[2019-06-06] MEDS: PANTOPRAZOLE 40MG DR TABLET PO SCH (06:05)
[2019-06-06 06:23] LABS: CHLORIDE 109 mEq/L (98-107)
[2019-06-06 06:27] LABS: HEMATOCRIT. 34.9 % (36.0-48.0); HEMOGLOBIN. 11.1 g/dL (12.0-16.0); MEAN CORPUSCULAR HEMOGLOBIN 29.1 pg (28.0-32.0); MEAN CORPUSCULAR VOLUME 91.3 fL (81.0-99.0); MEAN PLATELET VOLUME 8.9 fl (7.4-10.4); PLATELET 144 x1000/uL (130-400); RED BLOOD CELL COUNT 3.83 mill/uL (4.2-5.4); RED CELL DISTRIBUTION WIDTH 14.5 % (11.6-14.6)
[2019-06-06 06:28] LABS: VANCOMYCIN TROUGH 15.4 ug/mL (5.0-10.0)
[2019-06-06 08:00] VITALS: BP 162/99
[2019-06-06] MEDS: FOLIC ACID 1MG TABLET PO SCH ×2 (09:00→09:28)
[2019-06-06] MEDS: ASCORBIC ACID 500 MG TABLET PO SCH ×3 (09:00→17:57)
[2019-06-06] MEDS: DOCUSATE SODIUM 100MG CAPSULE PO SCH ×2 (09:27→17:57)
[2019-06-06] MEDS: ZINC SULFATE 220 MG ( 50 ) CAPSULE PO SCH (09:27)
[2019-06-06] MEDS: QUETIAPINE FUMARATE 25MG TABLET PO SCH ×2 (09:27→20:19)
[2019-06-06] MEDS: APIXABAN 5 MG TABLET PO SCH ×2 (09:27→17:57)
[2019-06-06] MEDS: AMLODIPINE 5MG TABLET PO SCH ×2 (09:28→20:19)
[2019-06-06 12:00] VITALS: BP_SYST 102; BP_SYST 162; BP_DIAS 51; BP_DIAS 99
[2019-06-06 16:00] VITALS: BP 109/56
[2019-06-06] MEDS: MORPHINE SULFATE 2 MG/ML CPJ (NOT FOR IM USE) IV PRN ×2 (17:57→22:03)
[2019-06-06] MEDS: VANCOMYCIN 1250MG in DEXTROSE 5% WATER 250ML IV SCH (17:58)
[2019-06-06 20:00] VITALS: BP 106/55
[2019-06-06] MEDS: ATORVASTATIN CALCIUM 10MG TABLET PO SCH (20:19)
[2019-06-06 21:26] LABS: PLATELET ESTIMATE NORMAL
[2019-06-07] VITALS: BP 126/62
[2019-06-07 04:00] VITALS: BP 124/66
[2019-06-07] MEDS: MEROPENEM 1,000 MG in SODIUM CHLORIDE 0.9% 100 ML IV SCH ×3 (05:03→21:00)
[2019-06-07] MEDS: MORPHINE SULFATE 2 MG/ML CPJ (NOT FOR IM USE) IV PRN ×5 (05:38→22:38)
[2019-06-07] MEDS: GABAPENTIN 100MG CAPSULE PO SCH ×3 (05:42→21:00)
[2019-06-07] MEDS: VANCOMYCIN 1250MG in DEXTROSE 5% WATER 250ML IV SCH ×2 (05:42→17:21)
[2019-06-07] MEDS: BLOOD SUGAR DIAGNOSTIC STRIP TEST SCH ×4 (05:50→21:00)
[2019-06-07] MEDS: INSULIN LISPRO 100 UNITS/ML SUBCUT SCH ×4 (06:20→21:00)
[2019-06-07] MEDS: SODIUM CHLORIDE 0.9% 1,000 ML IV SCH (07:07)
[2019-06-07 07:12] LABS: BASOPHILS % 0.3 % (0.0-2.0); EOSINOPHILS % 5.5 % (0.0-5.0); HEMATOCRIT. 29.5 % (36.0-48.0); LYMPHOCYTES % 41.4 % (20.0-50.0); MEAN CORPUSCULAR HEMOGLOBIN 29.3 pg (28.0-32.0); MEAN CORPUSCULAR VOLUME 86.7 fL (81.0-99.0); MEAN PLATELET VOLUME 8.6 fl (7.4-10.4); MONOCYTES % 11.1 % (2.0-8.0); NEUTROPHILS % 41.7 % (40.0-76.0); PLATELET 169 x1000/uL (130-400); RED BLOOD CELL COUNT 3.41 mill/uL (4.2-5.4); RED CELL DISTRIBUTION WIDTH 14.2 % (11.6-14.6)
[2019-06-07 07:48] LABS: CHLORIDE 109 mEq/L (98-107)
[2019-06-07 08:00] VITALS: BP 142/85
[2019-06-07] MEDS: FAMOTIDINE 20MG TABLET PO SCH ×2 (08:43→17:15)
[2019-06-07] MEDS: DOCUSATE SODIUM 100MG CAPSULE PO SCH ×2 (08:43→17:15)
[2019-06-07] MEDS: QUETIAPINE FUMARATE 25MG TABLET PO SCH ×2 (08:44→20:59)
[2019-06-07] MEDS: ZINC SULFATE 220 MG ( 50 ) CAPSULE PO SCH ×2 (08:44→09:00)
[2019-06-07] MEDS: ASCORBIC ACID 500 MG TABLET PO SCH ×2 (08:44→17:15)
[2019-06-07] MEDS: AMLODIPINE 5MG TABLET PO SCH ×2 (08:44→21:00)
[2019-06-07] MEDS: APIXABAN 5 MG TABLET PO SCH ×2 (08:44→17:15)
[2019-06-07] MEDS: FOLIC ACID 1MG TABLET PO SCH (08:44)
[2019-06-07] MEDS ORDERED: POTASSIUM CHLORIDE 20MEQ TABLET SR PO SCH (09:15)
[2019-06-07 12:00] VITALS: BP 112/48
[2019-06-07 16:00] VITALS: BP_SYST 117; BP_SYST 96; BP_DIAS 61
[2019-06-07 20:00] VITALS: BP 127/70
[2019-06-07] MEDS: ATORVASTATIN CALCIUM 10MG TABLET PO SCH (20:59)
[2019-06-08] VITALS: BP 155/80
[2019-06-08] MEDS: SODIUM CHLORIDE 0.9% 1,000 ML IV SCH ×2 (01:23→21:03)
[2019-06-08] MEDS: MORPHINE SULFATE 2 MG/ML CPJ (NOT FOR IM USE) IV PRN ×4 (03:14→22:19)
[2019-06-08 04:00] VITALS: BP 105/65
[2019-06-08] MEDS: MEROPENEM 1,000 MG in SODIUM CHLORIDE 0.9% 100 ML IV SCH ×3 (05:04→21:02)
[2019-06-08] MEDS: VANCOMYCIN 1250MG in DEXTROSE 5% WATER 250ML IV SCH ×2 (06:06→17:00)
[2019-06-08] MEDS: GABAPENTIN 100MG CAPSULE PO SCH ×3 (06:06→21:02)
[2019-06-08] MEDS: BLOOD SUGAR DIAGNOSTIC STRIP TEST SCH ×4 (07:02→20:58)
[2019-06-08] MEDS: INSULIN LISPRO 100 UNITS/ML SUBCUT SCH ×4 (07:02→20:59)
[2019-06-08 07:13] LABS: BASOPHILS % 0.2 % (0.0-2.0); EOSINOPHILS % 4.6 % (0.0-5.0); HEMATOCRIT. 32.5 % (36.0-48.0); HEMOGLOBIN. 10.6 g/dL (12.0-16.0); LYMPHOCYTES % 49.3 % (20.0-50.0); MEAN CORPUSCULAR HEMOGLOBIN 28.2 pg (28.0-32.0); MEAN CORPUSCULAR VOLUME 86.9 fL (81.0-99.0); MEAN PLATELET VOLUME 8.7 fl (7.4-10.4); NEUTROPHILS % 33.9 % (40.0-76.0); PLATELET 175 x1000/uL (130-400); RED BLOOD CELL COUNT 3.75 mill/uL (4.2-5.4); RED CELL DISTRIBUTION WIDTH 14.3 % (11.6-14.6)
[2019-06-08 07:15] LABS: CHLORIDE 109 mEq/L (98-107)
[2019-06-08 08:00] VITALS: BP 124/70
[2019-06-08] MEDS: ZINC SULFATE 220 MG ( 50 ) CAPSULE PO SCH ×2 (09:00→09:16)
[2019-06-08] MEDS: APIXABAN 5 MG TABLET PO SCH ×2 (09:16→16:58)
[2019-06-08] MEDS: ASCORBIC ACID 500 MG TABLET PO SCH ×2 (09:16→16:58)
[2019-06-08] MEDS: QUETIAPINE FUMARATE 25MG TABLET PO SCH ×2 (09:16→20:58)
[2019-06-08] MEDS: FAMOTIDINE 20MG TABLET PO SCH ×2 (09:16→16:58)
[2019-06-08] MEDS: FOLIC ACID 1MG TABLET PO SCH (09:16)
[2019-06-08] MEDS: DOCUSATE SODIUM 100MG CAPSULE PO SCH ×2 (09:16→16:58)
[2019-06-08] MEDS: AMLODIPINE 5MG TABLET PO SCH ×2 (09:16→20:58)
[2019-06-08 12:00] VITALS: BP 110/68
[2019-06-08 16:00] VITALS: BP 111/68
[2019-06-08 20:00] VITALS: BP 116/67
[2019-06-08] MEDS: ATORVASTATIN CALCIUM 10MG TABLET PO SCH (20:58)
[2019-06-09] VITALS: BP 102/60
[2019-06-09 04:00] VITALS: BP 104/63
[2019-06-09] MEDS: MEROPENEM 1,000 MG in SODIUM CHLORIDE 0.9% 100 ML IV SCH ×3 (05:29→21:49)
[2019-06-09] MEDS: VANCOMYCIN 1250MG in DEXTROSE 5% WATER 250ML IV SCH ×2 (05:29→17:50)
[2019-06-09] MEDS: GABAPENTIN 100MG CAPSULE PO SCH ×3 (05:30→21:49)
[2019-06-09] MEDS: BLOOD SUGAR DIAGNOSTIC STRIP TEST SCH ×4 (05:44→21:45)
[2019-06-09] MEDS: INSULIN LISPRO 100 UNITS/ML SUBCUT SCH ×4 (07:15→21:00)
[2019-06-09 07:22] LABS: BASOPHILS % 0.2 % (0.0-2.0); EOSINOPHILS % 4.7 % (0.0-5.0); HEMATOCRIT. 33.2 % (36.0-48.0); HEMOGLOBIN. 10.8 g/dL (12.0-16.0); LYMPHOCYTES % 40.8 % (20.0-50.0); MEAN CORPUSCULAR HEMOGLOBIN 28.4 pg (28.0-32.0); MEAN CORPUSCULAR VOLUME 86.8 fL (81.0-99.0); MEAN PLATELET VOLUME 8.2 fl (7.4-10.4); NEUTROPHILS % 43.3 % (40.0-76.0); PLATELET 181 x1000/uL (130-400); RED BLOOD CELL COUNT 3.82 mill/uL (4.2-5.4); RED CELL DISTRIBUTION WIDTH 14.6 % (11.6-14.6)
[2019-06-09 07:41] LABS: CHLORIDE 108 mEq/L (98-107)
[2019-06-09 08:00] VITALS: BP 134/80
[2019-06-09] MEDS: FOLIC ACID 1MG TABLET PO SCH (09:00)
[2019-06-09] MEDS: DOCUSATE SODIUM 100MG CAPSULE PO SCH ×2 (09:00→17:40)
[2019-06-09] MEDS: AMLODIPINE 5MG TABLET PO SCH ×2 (09:00→21:49)
[2019-06-09] MEDS: FAMOTIDINE 20MG TABLET PO SCH ×2 (09:00→17:40)
[2019-06-09] MEDS: QUETIAPINE FUMARATE 25MG TABLET PO SCH ×2 (09:00→21:49)
[2019-06-09] MEDS: ASCORBIC ACID 500 MG TABLET PO SCH ×2 (09:00→17:40)
[2019-06-09] MEDS: APIXABAN 5 MG TABLET PO SCH ×2 (09:00→17:40)
[2019-06-09] MEDS: ZINC SULFATE 220 MG ( 50 ) CAPSULE PO SCH (09:00)
[2019-06-09] MEDS ORDERED: PROPOFOL 200MG/20ML VIAL IV ONE (11:37)
[2019-06-09] MEDS ORDERED: MIDAZOLAM HCL 2 MG/2 ML VIAL ONE (11:38)
[2019-06-09] MEDS ORDERED: LIDOCAINE HCL/PF 1% 10 MG/ML 5ML VIAL ONE (11:38)
[2019-06-09] MEDS ORDERED: FENTANYL CITRATE/PF 50MCG/ML 2ML VIAL ONE (11:38)
[2019-06-09] MEDS ORDERED: BACITRACIN 50,000 UNITS/VIAL ONE (11:42)
[2019-06-09] MEDS ORDERED: VANCOMYCIN HCL 500 MG/VIAL ONE (11:42)
[2019-06-09 12:00] VITALS: BP 117/69
[2019-06-09] MEDS ORDERED: BUPIVACAINE HCL/PF 0.5% (5MG/ML) 10ML ONE (12:21)
[2019-06-09] MEDS ORDERED: FENTANYL CITRATE/PF 50MCG/ML 2ML VIAL IV PRN (13:30)
[2019-06-09] MEDS ORDERED: ONDANSETRON HCL 4MG/2ML INJ IV PRN (13:30)
[2019-06-09] MEDS ORDERED: HYDROMORPHONE HCL/PF 2MG/ML CPJ IV PRN (13:30)
[2019-06-09] MEDS: SODIUM CHLORIDE 0.9% 1,000 ML IV SCH ×2 (14:17→19:18)
[2019-06-09 16:00] VITALS: BP 118/69
[2019-06-09] MEDS: MORPHINE SULFATE 2 MG/ML CPJ (NOT FOR IM USE) IV PRN ×2 (19:07→23:25)
[2019-06-09 20:00] VITALS: BP 124/70
[2019-06-09] MEDS: ATORVASTATIN CALCIUM 10MG TABLET PO SCH (21:50)
[2019-06-10] VITALS: BP 103/54
[2019-06-10 04:00] VITALS: BP 113/65
[2019-06-10] MEDS: VANCOMYCIN 1250MG in DEXTROSE 5% WATER 250ML IV SCH ×2 (05:11→17:47)
[2019-06-10] MEDS: MEROPENEM 1,000 MG in SODIUM CHLORIDE 0.9% 100 ML IV SCH ×3 (05:12→21:45)
[2019-06-10 05:26] LABS: BASOPHILS % 0.3 % (0.0-2.0); HEMATOCRIT. 33.2 % (36.0-48.0); HEMOGLOBIN. 11.1 g/dL (12.0-16.0); LYMPHOCYTES % 47.2 % (20.0-50.0); MEAN CORPUSCULAR HEMOGLOBIN 28.8 pg (28.0-32.0); MEAN CORPUSCULAR VOLUME 86.7 fL (81.0-99.0); MEAN PLATELET VOLUME 8.7 fl (7.4-10.4); MONOCYTES % 9.3 % (2.0-8.0); NEUTROPHILS % 39.2 % (40.0-76.0); PLATELET 191 x1000/uL (130-400); RED BLOOD CELL COUNT 3.83 mill/uL (4.2-5.4); RED CELL DISTRIBUTION WIDTH 14.4 % (11.6-14.6)
[2019-06-10 05:28] LABS: CHLORIDE 109 mEq/L (98-107)
[2019-06-10] MEDS: GABAPENTIN 100MG CAPSULE PO SCH ×3 (05:32→21:45)
[2019-06-10] MEDS: BLOOD SUGAR DIAGNOSTIC STRIP TEST SCH ×4 (05:34→20:38)
[2019-06-10 05:48] LABS: VANCOMYCIN TROUGH 18.8 ug/mL (5.0-10.0)
[2019-06-10] MEDS: INSULIN LISPRO 100 UNITS/ML SUBCUT SCH ×4 (07:15→20:39)
[2019-06-10 08:00] VITALS: BP 115/74
[2019-06-10] MEDS: QUETIAPINE FUMARATE 25MG TABLET PO SCH ×2 (09:40→20:32)
[2019-06-10] MEDS: APIXABAN 5 MG TABLET PO SCH ×2 (09:40→17:46)
[2019-06-10] MEDS: AMLODIPINE 5MG TABLET PO SCH ×2 (09:40→20:33)
[2019-06-10] MEDS: FAMOTIDINE 20MG TABLET PO SCH ×2 (09:41→17:46)
[2019-06-10] MEDS: ZINC SULFATE 220 MG ( 50 ) CAPSULE PO SCH (09:41)
[2019-06-10] MEDS: DOCUSATE SODIUM 100MG CAPSULE PO SCH ×2 (09:41→17:46)
[2019-06-10] MEDS: FOLIC ACID 1MG TABLET PO SCH (09:41)
[2019-06-10] MEDS: ASCORBIC ACID 500 MG TABLET PO SCH ×2 (09:41→17:46)
[2019-06-10 12:00] VITALS: BP 118/69
[2019-06-10] MEDS: MORPHINE SULFATE 2 MG/ML CPJ (NOT FOR IM USE) IV PRN ×3 (12:09→20:33)
[2019-06-10] MEDS: SODIUM CHLORIDE 0.9% 1,000 ML IV SCH (13:22)
[2019-06-10 16:00] VITALS: BP 116/80
[2019-06-10 20:00] VITALS: BP 114/68
[2019-06-10] MEDS: ATORVASTATIN CALCIUM 10MG TABLET PO SCH (20:32)
[2019-06-11] VITALS: BP 107/60
[2019-06-11] MEDS: MORPHINE SULFATE 2 MG/ML CPJ (NOT FOR IM USE) IV PRN ×5 (00:36→21:57)
[2019-06-11 04:00] VITALS: BP 105/54
[2019-06-11] MEDS: GABAPENTIN 100MG CAPSULE PO SCH ×3 (05:00→21:40)
[2019-06-11] MEDS: MEROPENEM 1,000 MG in SODIUM CHLORIDE 0.9% 100 ML IV SCH ×3 (05:00→21:40)
[2019-06-11] MEDS: BLOOD SUGAR DIAGNOSTIC STRIP TEST SCH ×4 (06:03→20:33)
[2019-06-11] MEDS: INSULIN LISPRO 100 UNITS/ML SUBCUT SCH ×4 (06:03→20:33)
[2019-06-11] MEDS: VANCOMYCIN 1250MG in DEXTROSE 5% WATER 250ML IV SCH ×2 (06:33→17:27)
[2019-06-11 08:00] VITALS: BP 104/58
[2019-06-11] MEDS: FOLIC ACID 1MG TABLET PO SCH (08:44)
[2019-06-11] MEDS: ZINC SULFATE 220 MG ( 50 ) CAPSULE PO SCH (08:44)
[2019-06-11] MEDS: QUETIAPINE FUMARATE 25MG TABLET PO SCH ×2 (08:44→20:13)
[2019-06-11] MEDS: ASCORBIC ACID 500 MG TABLET PO SCH ×2 (08:44→17:23)
[2019-06-11] MEDS: FAMOTIDINE 20MG TABLET PO SCH ×2 (08:44→17:23)
[2019-06-11] MEDS: APIXABAN 5 MG TABLET PO SCH ×2 (08:44→17:23)
[2019-06-11] MEDS: DOCUSATE SODIUM 100MG CAPSULE PO SCH ×2 (08:44→17:23)
[2019-06-11] MEDS: AMLODIPINE 5MG TABLET PO SCH (08:45)
[2019-06-11 12:00] VITALS: BP 98/61
[2019-06-11 16:00] VITALS: BP 98/60
[2019-06-11] MEDS: SODIUM CHLORIDE 0.9% 1,000 ML IV SCH ×2 (17:31→17:33)
[2019-06-11 20:00] VITALS: BP 111/61
[2019-06-11] MEDS: ATORVASTATIN CALCIUM 10MG TABLET PO SCH (20:13)
[2019-06-12] VITALS (7 sets, daily range): BP systolic 88–124; BP diastolic 41–77
[2019-06-12] MEDS ORDERED: SODIUM CHLORIDE 0.9% 500 ML IV NR (01:30)
[2019-06-12] MEDS: MEROPENEM 1,000 MG in SODIUM CHLORIDE 0.9% 100 ML IV SCH ×3 (06:54→21:36)
[2019-06-12] MEDS: BLOOD SUGAR DIAGNOSTIC STRIP TEST SCH ×4 (06:55→20:47)
[2019-06-12] MEDS: GABAPENTIN 100MG CAPSULE PO SCH ×3 (06:55→21:36)
[2019-06-12] MEDS: SODIUM CHLORIDE 0.9% 1,000 ML IV SCH ×2 (06:55→20:22)
[2019-06-12] MEDS: INSULIN LISPRO 100 UNITS/ML SUBCUT SCH ×4 (07:08→20:47)
[2019-06-12] MEDS: MORPHINE SULFATE 2 MG/ML CPJ (NOT FOR IM USE) IV PRN ×3 (07:51→20:18)
[2019-06-12] MEDS: VANCOMYCIN 1250MG in DEXTROSE 5% WATER 250ML IV SCH ×2 (07:51→18:12)
[2019-06-12] MEDS: DOCUSATE SODIUM 100MG CAPSULE PO SCH ×2 (08:58→18:05)
[2019-06-12] MEDS: FAMOTIDINE 20MG TABLET PO SCH ×2 (08:59→09:22)
[2019-06-12] MEDS: FOLIC ACID 1MG TABLET PO SCH (08:59)
[2019-06-12] MEDS: QUETIAPINE FUMARATE 25MG TABLET PO SCH ×2 (08:59→20:22)
[2019-06-12] MEDS: ZINC SULFATE 220 MG ( 50 ) CAPSULE PO SCH (08:59)
[2019-06-12] MEDS: AMLODIPINE 5MG TABLET PO SCH ×2 (08:59→20:22)
[2019-06-12] MEDS: APIXABAN 5 MG TABLET PO SCH ×2 (08:59→18:05)
[2019-06-12] MEDS: ASCORBIC ACID 500 MG TABLET PO SCH ×2 (09:00→18:05)
[2019-06-12 13:33] LABS: BASOPHILS % 0.3 % (0.0-2.0); EOSINOPHILS % 5.2 % (0.0-5.0); HEMOGLOBIN. 11.5 g/dL (12.0-16.0); LYMPHOCYTES % 44.8 % (20.0-50.0); MEAN CORPUSCULAR HEMOGLOBIN 28.6 pg (28.0-32.0); MEAN PLATELET VOLUME 8.9 fl (7.4-10.4); MONOCYTES % 9.1 % (2.0-8.0); NEUTROPHILS % 40.6 % (40.0-76.0); PLATELET 180 x1000/uL (130-400); RED BLOOD CELL COUNT 4.02 mill/uL (4.2-5.4); RED CELL DISTRIBUTION WIDTH 14.3 % (11.6-14.6)
[2019-06-12 13:40] LABS: CHLORIDE 107 mEq/L (98-107)
[2019-06-12] MEDS: ATORVASTATIN CALCIUM 10MG TABLET PO SCH (20:21)
[2019-06-13] VITALS: BP 151/77
[2019-06-13] MEDS: MORPHINE SULFATE 2 MG/ML CPJ (NOT FOR IM USE) IV PRN (00:15)
[2019-06-13 04:00] VITALS: BP 113/77
[2019-06-13] MEDS: GABAPENTIN 100MG CAPSULE PO SCH ×2 (06:02→15:59)
[2019-06-13] MEDS: MEROPENEM 1,000 MG in SODIUM CHLORIDE 0.9% 100 ML IV SCH (06:02)
[2019-06-13] MEDS: BLOOD SUGAR DIAGNOSTIC STRIP TEST SCH ×3 (06:02→16:45)
[2019-06-13] MEDS: VANCOMYCIN 1250MG in DEXTROSE 5% WATER 250ML IV SCH (06:52)
[2019-06-13] MEDS: INSULIN LISPRO 100 UNITS/ML SUBCUT SCH ×3 (06:52→17:15)
[2019-06-13 07:12] LABS: CHLORIDE 108 mEq/L (98-107)
[2019-06-13 07:22] LABS: BASOPHILS % 0.3 % (0.0-2.0); EOSINOPHILS % 5.3 % (0.0-5.0); HEMATOCRIT. 34.1 % (36.0-48.0); HEMOGLOBIN. 11.2 g/dL (12.0-16.0); LYMPHOCYTES % 47.8 % (20.0-50.0); MEAN CORPUSCULAR HEMOGLOBIN 28.3 pg (28.0-32.0); MEAN CORPUSCULAR VOLUME 86.3 fL (81.0-99.0); MEAN PLATELET VOLUME 8.7 fl (7.4-10.4); MONOCYTES % 8.9 % (2.0-8.0); NEUTROPHILS % 37.7 % (40.0-76.0); PLATELET 210 x1000/uL (130-400); RED BLOOD CELL COUNT 3.95 mill/uL (4.2-5.4); RED CELL DISTRIBUTION WIDTH 14.4 % (11.6-14.6)
[2019-06-13 08:00] VITALS: BP 105/54
[2019-06-13] MEDS: AMLODIPINE 5MG TABLET PO SCH (09:00)
[2019-06-13] MEDS: FOLIC ACID 1MG TABLET PO SCH (09:29)
[2019-06-13] MEDS: QUETIAPINE FUMARATE 25MG TABLET PO SCH (09:30)
[2019-06-13] MEDS: DOCUSATE SODIUM 100MG CAPSULE PO SCH ×2 (09:30→17:40)
[2019-06-13] MEDS: ASCORBIC ACID 500 MG TABLET PO SCH ×2 (09:30→17:40)
[2019-06-13] MEDS: FAMOTIDINE 20MG TABLET PO SCH ×2 (09:31→17:40)
[2019-06-13] MEDS: APIXABAN 5 MG TABLET PO SCH ×2 (09:31→17:40)
[2019-06-13] MEDS: ZINC SULFATE 220 MG ( 50 ) CAPSULE PO SCH (09:31)
[2019-06-13] MEDS: SODIUM CHLORIDE 0.9% 1,000 ML IV SCH (10:49)
[2019-06-13 12:00] VITALS: BP 110/50
[2019-06-13] MEDS ORDERED: GENTAMICIN SULFATE 140 MG in SODIUM CHLORIDE 0.9% 100 ML IV NR (13:00)
[2019-06-13] MEDS ORDERED: MEROPENEM 1,000 MG in SODIUM CHLORIDE 0.9% 100 ML IV SCH (14:00)
[2019-06-13 16:00] VITALS: BP 118/65
[2019-06-13] MEDS ORDERED: VANCOMYCIN 1,250 MG in DEXT 5% WATER 250 ML IV SCH (18:00)
[2019-06-13 19:31] VITALS: BP 121/76
[2019-06-14] MEDS ORDERED: GENTAMICIN SULFATE 160 MG in SODIUM CHLORIDE 0.9% 100 ML IV SCH (01:00)
[2019-06-14] MEDS ORDERED: GENTAMICIN 100MG PREMIX 50 ML IV SCH (01:00)
[2019-06-14] MEDS ORDERED: GENTAMICIN 100MG PREMIX 100 ML IV SCH (01:00)
== END 2019-06-13 21:27 | DRG 317 ==
LOC: ER 18:56 → 5WST 06-02 00:14 → EDBEDREQTM 06-02 00:38 → EDBEDREQDT 06-02 00:38 → EDBEDREQSVC 06-02 00:38 → EDBEDREQ 06-02 00:38 → ENRESERV 06-02 02:45
PROVIDERS: ADMIT Internal Medicine; ATTEND Internal Medicine
PROC: 0JDM0ZZ Extraction of Left Upper Leg Subcutaneous Tissue and Fascia, Open Approach (ICD-10-PCS; principal; 2019-06-09)
DX: T87.44 Infection of amputation stump, left lower extremity (principal); A41.9 Sepsis, unspecified organism; E46 Unspecified protein-calorie malnutrition; I11.0 Hypertensive heart disease with heart failure; I50.9 Heart failure, unspecified; E11.51 Type 2 diabetes mellitus with diabetic peripheral angiopathy without gangrene; Z89.612 Acquired absence of left leg above knee; F20.9 Schizophrenia, unspecified; I45.81 Long QT syndrome; Y83.5 Amputation of limb(s) as the cause of abnormal reaction of the patient, or of later complication, without mention of misadventure at the time of the procedure; Z86.718 Personal history of other venous thrombosis and embolism; Z86.73 Personal history of transient ischemic attack (TIA), and cerebral infarction without residual deficits; Z74.01 Bed confinement status; Y92.89 Other specified places as the place of occurrence of the external cause; Z79.899 Other long term (current) drug therapy; Z68.36 Body mass index [BMI] 36.0-36.9, adult; Z79.01 Long term (current) use of anticoagulants; Z79.4 Long term (current) use of insulin
CPT/HCPCS: 36415; 71045; 73560; 80048; 80076; 80202; 80305; 80320; 82962; 83605; 83880; 84145; 84484; 84703; 85651; 86140; 87070; 87075; 87077; 87186; 93005; 96365; 96368; 96375; 97162; 99285; C1893; J1580; J2185; J2250; J2270; J2405; J2543; J2704; J3010; J3370; J3490; J7030; J7040; J7050; J7060; A4315; G0480